=== PATIENT | female | born 1945 | race Two or more races ===

== ENCOUNTER 2017-12-19 16:26 | Inpatient (IN) | payer MEDICAID ==
[~2017-12-19] VITALS: Ht 157.5 cm; Wt 83.0 kg
[2017-12-19] VITALS (8 sets, daily range): BP systolic 86–118; BP diastolic 39–64
[2017-12-19] MEDS ORDERED: Vancomycin 1.5gm/D5W 250ml 250 ML IVPB ONE (16:45)
--- NOTE | 2017-12-19 16:51 | Emergency Room Report ---
History of Present Illness General Chief Complaint: Wound bleeding Source: Patient, Medical Record Present Illness HPI Patient is a 72-year-old female presented after increased bilateral lower extremity drainage. The patient prior history of chronic nonhealing wounds. Patient had been sent in for further evaluation. Patient had the been noted to be ventilator dependent and have baseline abnormal mental status. Patient was noted to be ventilator dependent.History is limited by patient's mental status. Allergies: Coded Allergies: PENICILLINS (Verified Allergy, Unknown, 12/19/17) Patient History Past Medical History: see triage record Past Surgical History: other - gtube, tracheostomy Last Menstrual Period: NA Reviewed Nursing Documentation: PMH: Agreed; PSxH: Agreed Nursing Documentation-PMH Past Medical History: No History, Except For Hx Hypertension: Yes - Cellulitis on LE. Osteomyelitis. Hx COPD: Yes - Tracheostomy Hx Gastrointestinal Problems: Yes - dysphagia. GERD. Peptic ulcer. History Of Psychiatric Problem: Yes - Dementia Hx Cerebrovascular Accident: Yes - Peripheral vascular disease Hx Seizures: Yes Review of Systems All Other Systems: limited - by mental status Physical Exam Vital Signs Date Time Temp Pulse Resp B/P (MAP) Pulse Ox O2 Delivery O2 Flow Rate FiO2 12/19/17 16:27 101.6 73 29 103/50 100 Mechanical Ventilator 45 101.7 Sp02 EP Interpretation: reviewed, normal General Appearance: obese, Chronically Ill, Stupor Head: atraumatic Eyes: bilateral eye PERRL ENT: uvula midline, moist mucus membranes Neck: supple, no bony tend, tracheotomy Respiratory: normal inspection, no respiratory distress, no retraction, crackles Cardiovascular #1: tachycardia, other, edema Gastrointestinal: non tender Genitourinary: normal inspection Musculoskeletal: back normal, decreased range of motion - contractures Neurologic: aphasia, motor weakness Psychiatric: depressed affect Skin: other - deep ulcer with surrounding erythema to right heel, left lateral malleolus large ulcer without eryythema Procedures Critical Care Time Critical Care Time Patient had a critical medical condition which untreated could potentially result in life or limb threatening injury. Total critical care time excluding procedures approximately 45 minutes. Central Line Central Line : Consent: Emergent Central Line Lumen: triple Maximal Sterile Barrier Tech: yes cap, yes mask, yes sterile gown, yes sterile gloves, yes large sterile sheet, yes hand hygiene, yes chlorhexidine prep Central Line Postion: subclavian (R) Anesthesia: local cc's of anesthesia: 6 Complications: none Central Line Post Position: sutured, good blood return, position confirmed w / CXR Attempts: Other - two Patient Tolerated: Well Complications: None Medical Decision Making Diagnostic Impression: Primary Impression: Decubitus ulcer Additional Impressions: Ventilator dependence Sepsis Quadriplegia Hyponatremia ER Course Patient presented for increased drainage from leg wounds. Differential diagnosis included was not limited to sepsis, cellulitis, osteomyelitis, peripheral vascular disease among others.Because of complexity of patient's case laboratory testing and imaging studies were ordered. The patient presented to have the area of infected wound to the right lower extremity decubitus ulcer to the heel which appears to be markedly edematous as well as somewhat infected. The left lateral malleolar wound appears to have recent debridement.The patient likely require admission for further surgical evaluation and treatment of nonhealing wounds.The patient started on IV fluids as well as IV antibiotics. Patient's daughter was contacted for consent for central line placement. The patient was noted to have the poor IV access and hypotension. The patient was started on IV antibiotics. Dr. Phoenix Mccoy was contacted for inpatient management due to covering physician for Dr. Andrews. Dr. Lujan was contacted for surgical consult. Labs Test 12/19/17 16:45 12/19/17 17:30 12/19/17 17:33 12/19/17 19:00 White Blood Count 18.8 K/UL (4.8-10.8) Red Blood Count 2.85 M/UL (4.20-5.40) Hemoglobin 8.5 G/DL (12.0-16.0) Hematocrit 24.2 % (37.0-47.0) Mean Corpuscular Volume 85 FL (80-99) Mean Corpuscular Hemoglobin 29.9 PG (27.0-31.0) Mean Corpuscular Hemoglobin Concent 35.3 G/DL (32.0-36.0) Red Cell Distribution Width 11.9 % (11.6-14.8) Platelet Count 263 K/UL (150-450) Mean Platelet Volume 6.4 FL (6.5-10.1) Neutrophils (%) (Auto) % (45.0-75.0) Lymphocytes (%) (Auto) % (20.0-45.0) Monocytes (%) (Auto) % (1.0-10.0) Eosinophils (%) (Auto) % (0.0-3.0) Basophils (%) (Auto) % (0.0-2.0) Differential Total Cells Counted 100 Neutrophils % (Manual) 83 % (45-75) Lymphocytes % (Manual) 13 % (20-45) Monocytes % (Manual) 2 % (1-10) Eosinophils % (Manual) 0 % (0-3) Basophils % (Manual) 0 % (0-2) Band Neutrophils 2 % (0-8) Platelet Estimate Adequate Platelet Morphology Normal Red Blood Cell Morphology Normal Hypochromasia 1+ Prothrombin Time 10.7 SEC (9.30-11.50) Prothromb Time International Ratio 1.0 (0.9-1.1) Activated Partial Thromboplast Time 29 SEC (23-33) Sodium Level 123 MMOL/L (136-145) Potassium Level 5.0 MMOL/L (3.5-5.1) Chloride Level 90 MMOL/L (98-107) Carbon Dioxide Level 28 MMOL/L (21-32) Anion Gap 5 mmol/L (5-15) Blood Urea Nitrogen 13 mg/dL (7-18) Creatinine 0.7 MG/DL (0.55-1.30) Estimat Glomerular Filtration Rate mL/min (>60) Glucose Level 291 MG/DL (74-106) Calcium Level 9.2 MG/DL (8.5-10.1) Total Bilirubin 0.6 MG/DL (0.2-1.0) Aspartate Amino Transf (AST/SGOT) 26 U/L (15-37) Alanine Aminotransferase (ALT/SGPT) 26 U/L (12-78) Alkaline Phosphatase 276 U/L (46-116) Total Creatine Kinase 58 U/L (26-308) Creatine Kinase MB 4.1 NG/ML (0.0-3.6) Creatine Kinase MB Relative Index 7.0 Troponin I 0.000 ng/mL (0.000-0.056) Pro-B-Type Natriuretic Peptide 2277 pg/mL (0-125) Total Protein 9.8 G/DL (6.4-8.2) Albumin 2.3 G/DL (3.4-5.0) Globulin 7.5 g/dL Albumin/Globulin Ratio 0.3 (1.0-2.7) Urine Color Melly Urine Appearance Cloudy Urine pH 8 (4.5-8.0) Urine Specific [place] 1.015 (1.005-1.035) Urine Protein 3+ (NEGATIVE) Urine Glucose (UA) Negative (NEGATIVE) Urine Ketones Negative (NEGATIVE) Urine Occult Blood 4+ (NEGATIVE) Urine Nitrite Negative (NEGATIVE) Urine Bilirubin Negative (NEGATIVE) Urine Ictotest Negative Urine Urobilinogen 1 MG/DL (0.0-1.0) Urine Leukocyte Esterase 3+ (NEGATIVE) Urine RBC 2-4 /HPF (0 - 2) Urine WBC 15-20 /HPF (0 - 2) Urine Squamous Epithelial Cells Moderate /LPF (NONE/OCC) Urine Amorphous Sediment Moderate /LPF (NONE) Urine Bacteria Many /HPF (NONE) Arterial Blood pH 7.429 (7.350-7.450) Arterial Blood Partial Pressure CO2 39.2 mmHg (35.0-45.0) Arterial Blood Partial Pressure O2 129.5 mmHg (75.0-100.0) Arterial Blood HCO3 25.4 mmol/L (22.0-26.0) Arterial Blood Oxygen Saturation 98.5 % (92.0-98.0) Arterial Blood Base Excess 1.0 Dean Test Positive Last Vital Signs Date Time Temp Pulse Resp B/P (MAP) Pulse Ox O2 Delivery O2 Flow Rate FiO2 12/19/17 16:27 101.6 73 29 103/50 100 Mechanical Ventilator 45 101.7 Status: unchanged Disposition: ADMITTED INPATIENT Condition: Critical Ramses Gallagher MD Dec 19, 2017 16:51
[2017-12-19] MEDS ORDERED: LISINOPRIL20 MG GT (16:54)
[2017-12-19] MEDS ORDERED: ASPIRIN325 MG GT (16:54)
[2017-12-19] MEDS ORDERED: HEPARIN SO5000 UNIT2 SUBQ ×2 (16:54→19:51)
[2017-12-19] MEDS ORDERED: KEPPRA500 MG GT (16:54)
[2017-12-19] MEDS ORDERED: ARTIFICIAL TEAR15 ML BOTH EYES ×2 (16:54→19:48)
[2017-12-19] MEDS ORDERED: MILK OF MA400 MG/51 ORAL (16:54)
[2017-12-19] MEDS ORDERED: VITAMIN D400 INTLU GT (16:54)
[2017-12-19] MEDS ORDERED: ATORVASTATIN CA20 MG GT (16:54)
[2017-12-19] MEDS ORDERED: JEVITY 1.2 CA1500 ML PO (16:54)
[2017-12-19] MEDS ORDERED: PROTONIX40 MG GT (16:54)
[2017-12-19] MEDS ORDERED: POTASSIUM40 MEQ/11 GT (16:54)
[2017-12-19] MEDS ORDERED: ACETAMINOPHEN325 M1 GT (16:57)
[2017-12-19] MEDS ORDERED: TRAMADOL HCL50 MG GT (16:57)
[2017-12-19 17:03] LABS: HEMATOCRIT 24.2 % (37.0-47.0); HEMOGLOBIN 8.5 G/DL (12.0-16.0); MEAN CORPUSCULAR VOLUME 85 FL (80-99); PLATELET COUNT 263 K/UL (150-450); RED BLOOD COUNT 2.85 M/UL (4.20-5.40); RED CELL DISTRIBUTION WIDTH 11.9 % (11.6-14.8); WHITE BLOOD COUNT 18.8 K/UL (4.8-10.8)
[2017-12-19 17:15] LABS: ANION GAP 5 mmol/L (5-15); BLOOD UREA NITROGEN 13 mg/dL (7-18); CALCIUM 9.2 MG/DL (8.5-10.1); CARBON DIOXIDE 28 MMOL/L (21-32); CHLORIDE 90 MMOL/L (98-107); CREATININE 0.7 MG/DL (0.55-1.30); SODIUM 123 MMOL/L (136-145)
[2017-12-19 17:28] LABS: ALANINE AMINOTRANSFERASE 26 U/L (12-78); ALBUMIN 2.3 G/DL (3.4-5.0); ALBUMIN/GLOBULIN RATIO 0.3 (1.0-2.7); ALKALINE PHOSPHATASE 276 U/L (46-116); ASPARTATE AMINO TRANSFERASE 26 U/L (15-37); BILIRUBIN,TOTAL 0.6 MG/DL (0.2-1.0); CKMB 4.1 NG/ML (0.0-3.6); CREATINE KINASE 58 U/L (26-308)
[2017-12-19] MEDS ORDERED: Acetaminophen 650mg/20.3ml GT ONE (17:45)
[2017-12-19 17:52] LABS: APPEARANCE,URINE CLOUDY; BILIRUBIN, URINE NEGATIVE (NEGATIVE); COLOR,URINE AMBER; GLUCOSE, URINE (UA) NEGATIVE (NEGATIVE); KETONES,URINE NEGATIVE (NEGATIVE); LEUKOCYTE ESTERASE ,URINE 3+ (NEGATIVE); NITRITE,URINE NEGATIVE (NEGATIVE); PH,URINE 8 (4.5-8.0); PROTEIN,URINE 3+ (NEGATIVE); UROBILINOGEN,URINE 1 MG/DL (0.0-1.0)
[2017-12-19] MEDS ORDERED: Lidocaine 1% Plain 30 ml INJ ONE (17:58)
[2017-12-19] MEDS ORDERED: Lidocaine 1% MPF 10mg/ml 5ml INJ ONE (18:00)
--- NOTE | 2017-12-19 19:23 | Consultation ---
History of Present Illness General Date patient seen: Dec 19, 2017 Chief Complaint: Wound Recheck/Suture Removal Present Illness HPI 72 y/o F with hx of LE cellulitis/OM, chronic resp failure s/p trach/vent dependent, Dementia, Dysphagia s/p GT, GERD, PUD, chronic non healing wounds, PVD, Dementia, seizure disorder, SNF resident presents to ED On 12/19 with increased b/l LE wound drainage. In ED it was noted patient to have foul smelling, yellow and sanguinous drainage. Also febrile up to 101.7, WBC 18.8. Of note, patient recently discharged from [facility] for debridemetns of wound. Allergies: Coded Allergies: PENICILLINS (Verified Allergy, Unknown, 12/19/17) Medication History Scheduled Aspirin* (Aspirin*), 325 MG GT DAILY, (Reported) Atorvastatin Calcium* (Atorvastatin Calcium*), 10 MG GT BEDTIME, (Reported) Cholecalciferol (Vitamin D3)* (Vitamin D*), 5,000 UNITS GT DAILY, (Reported) Dextran 70/Hypromellose (Artificial Tears Eye Drops*), 1 DROP BOTH EYES BID, ( Reported) Heparin Sod (Porcine) (Heparin Sodium*), 5,000 UNITS SUBQ DAILY, (Reported) Levetiracetam (Keppra), 5 ML GT TID, (Reported) Lisinopril (Lisinopril*), 20 MG GT DAILY, (Reported) Magnesium Hydroxide* (Milk Of Magnesia*), 30 ML ORAL DAILY, (Reported) Pantoprazole* (Protonix*), 40 MG GT DAILY, (Reported) Potassium Chloride (Potassium Chloride), 30 MEQ GT BID, (Reported) Scheduled PRN Acetaminophen* (Acetaminophen 325MG Tablet*), 650 MG GT Q4H PRN for For Pain, ( Reported) Tramadol Hcl* (Ultram*), 50 MG GT BIDAC PRN for For Pain, (Reported) Miscellaneous Medications Lactose-Reduced Food/Fiber (Jevity 1.2 Cuate Liquid), 1,500 ML PO, (Reported) Discontinued Medications Dextran 70/Hypromellose (Artificial Tears Eye Drops*), 1 DROP BOTH EYES, ( Reported) Discontinued Reason: Medication dose changed Heparin Sod (Porcine) (Heparin Sodium*), 5,000 UNITS SUBQ EVERY 12 HOURS, ( Reported) Discontinued Reason: Medication dose changed Levetiracetam (Keppra), 500 MG GT DAILY, (Reported) Discontinued Reason: Medication dose changed Potassium Chloride (Potassium Chloride), 40 MEQ GT, (Reported) Discontinued Reason: Medication dose changed Vitamin D (Vitamin D3), 5,000 UNITS GT DAILY, (Reported) Discontinued Reason: Medication dose changed Patient History Healthcare decision maker Resuscitation status Advanced Directive on File Patient History Narrative Pmhx: as above Shx: reviewed Fhx: non contributory Review of Systems All Other Systems: negative except mentioned in HPI Physical Exam Physical Exam Narrative General Appearance: normal inspection, obese, Chronically Ill, Stupor Head: atraumatic Eyes: bilateral eye PERRL ENT: uvula midline, moist mucus membranes Neck: supple, no bony tend, tracheotomy Respiratory: normal inspection, no respiratory distress, no retraction, no wheezing Cardiovascular tachycardia, other Gastrointestinal: non tender Genitourinary: normal inspection Musculoskeletal: back normal, decreased range of motion - contractures Neurologic: aphasia, motor weakness Psychiatric: depressed affect Skin: other - deep ulcer with surrounding erythema to right heel, left lateral malleolus large ulcer without eryythema Last 24 Hour Vital Signs Date Time Temp Pulse Resp B/P (MAP) Pulse Ox O2 Delivery O2 Flow Rate FiO2 12/19/17 18:24 101.6 12/19/17 17:30 101.6 87 17 86/40 100 Mechanical Ventilator 15.0 40 101.6 12/19/17 16:59 40 12/19/17 16:48 90 18 45 12/19/17 16:48 90 18 Mechanical Ventilator 15.0 45 12/19/17 16:30 101.7 90 16 117/64 100 Mechanical Ventilator 45 101.7 12/19/17 16:27 101.6 73 29 103/50 100 Mechanical Ventilator 45 101.7 Laboratory Tests Test 12/19/17 16:45 12/19/17 17:30 12/19/17 17:33 White Blood Count 18.8 K/UL (4.8-10.8) H Red Blood Count 2.85 M/UL (4.20-5.40) L Hemoglobin 8.5 G/DL (12.0-16.0) L Hematocrit 24.2 % (37.0-47.0) L Mean Corpuscular Volume 85 FL (80-99) Mean Corpuscular Hemoglobin 29.9 PG (27.0-31.0) Mean Corpuscular Hemoglobin Concent 35.3 G/DL (32.0-36.0) Red Cell Distribution Width 11.9 % (11.6-14.8) Platelet Count 263 K/UL (150-450) Mean Platelet Volume 6.4 FL (6.5-10.1) L Neutrophils (%) (Auto) % (45.0-75.0) Lymphocytes (%) (Auto) % (20.0-45.0) Monocytes (%) (Auto) % (1.0-10.0) Eosinophils (%) (Auto) % (0.0-3.0) Basophils (%) (Auto) % (0.0-2.0) Differential Total Cells Counted 100 Neutrophils % (Manual) 83 % (45-75) H Lymphocytes % (Manual) 13 % (20-45) L Monocytes % (Manual) 2 % (1-10) Eosinophils % (Manual) 0 % (0-3) Basophils % (Manual) 0 % (0-2) Band Neutrophils 2 % (0-8) Platelet Estimate Adequate Platelet Morphology Normal Red Blood Cell Morphology Normal Hypochromasia 1+ Prothrombin Time 10.7 SEC (9.30-11.50) Prothromb Time International Ratio 1.0 (0.9-1.1) Activated Partial Thromboplast Time 29 SEC (23-33) Sodium Level 123 MMOL/L (136-145) L Potassium Level 5.0 MMOL/L (3.5-5.1) Chloride Level 90 MMOL/L (98-107) L Carbon Dioxide Level 28 MMOL/L (21-32) Anion Gap 5 mmol/L (5-15) Blood Urea Nitrogen 13 mg/dL (7-18) Creatinine 0.7 MG/DL (0.55-1.30) Estimat Glomerular Filtration Rate mL/min (>60) Glucose Level 291 MG/DL (74-106) H Lactic Acid Level 2.00 mmol/L (0.4-2.0) Calcium Level 9.2 MG/DL (8.5-10.1) Total Bilirubin 0.6 MG/DL (0.2-1.0) Aspartate Amino Transf (AST/SGOT) 26 U/L (15-37) Alanine Aminotransferase (ALT/SGPT) 26 U/L (12-78) Alkaline Phosphatase 276 U/L (46-116) H Total Creatine Kinase 58 U/L (26-308) Creatine Kinase MB 4.1 NG/ML (0.0-3.6) H Creatine Kinase MB Relative Index 7.0 Troponin I 0.000 ng/mL (0.000-0.056) Pro-B-Type Natriuretic Peptide 2277 pg/mL (0-125) H Total Protein 9.8 G/DL (6.4-8.2) H Albumin 2.3 G/DL (3.4-5.0) L Globulin 7.5 g/dL Albumin/Globulin Ratio 0.3 (1.0-2.7) L Urine Color Melly Urine Appearance Cloudy Urine pH 8 (4.5-8.0) Urine Specific [place] 1.015 (1.005-1.035) Urine Protein 3+ (NEGATIVE) H Urine Glucose (UA) Negative (NEGATIVE) Urine Ketones Negative (NEGATIVE) Urine Occult Blood 4+ (NEGATIVE) H Urine Nitrite Negative (NEGATIVE) Urine Bilirubin Negative (NEGATIVE) Urine Ictotest Negative Urine Urobilinogen 1 MG/DL (0.0-1.0) H Urine Leukocyte Esterase 3+ (NEGATIVE) H Urine RBC 2-4 /HPF (0 - 2) H Urine WBC 15-20 /HPF (0 - 2) H Urine Squamous Epithelial Cells Moderate /LPF (NONE/OCC) H Urine Amorphous Sediment Moderate /LPF (NONE) H Urine Bacteria Many /HPF (NONE) H Arterial Blood pH 7.429 (7.350-7.450) Arterial Blood Partial Pressure CO2 39.2 mmHg (35.0-45.0) Arterial Blood Partial Pressure O2 129.5 mmHg (75.0-100.0) H Arterial Blood HCO3 25.4 mmol/L (22.0-26.0) Arterial Blood Oxygen Saturation 98.5 % (92.0-98.0) H Arterial Blood Base Excess 1.0 Dean Test Positive Height (Feet): 5 Height (Inches): 2.00 Weight (Pounds): 170 Assessment/Plan Assessment/Plan Abx: IV Vanco x1 12/19 LEvaquin x1 12/19 Assessment: Sepsis 2ry to R soft tissue infection- r/o bacteremia, r/o PNA, r/o UTI -CXR p -u/a wbc 15-20, nit neg, leuk +3, sq cell mod Fever/ leukocytosis B/l leg wounds; R foot infected, L musa non infected Abd distention hx of LE cellulitis/OM chronic resp failure s/p trach/vent dependent Dementia Dysphagia s/p GT GERD PUD chronic non healing wounds PVD Dementia seizure disorder SNF resident Plan: -Continue IV Vancomycn #1 and add IV MEropenem pending cultures -Bcx, sp cx -repeat u/a -KUB -f/u cx -Monitor CBC/CMP, temperatures -trach/peg care -ICU care -aspiration precautions -wound care per hosp protocol -Sx eval Thank you for this consultation. Will continue to follow along with you. Discussed with NELL. Ximena Grande M.D. Dec 19, 2017 19:23
[2017-12-19] MEDS ORDERED: KEPPRA LIQ100 MG/1 M GT (19:47)
[2017-12-19] MEDS ORDERED: POTASSIUM30 MEQ/22. GT (20:00)
[2017-12-19] MEDS ORDERED: VITAMIN D1000 UNI1 GT (20:03)
[2017-12-19] MEDS ORDERED: Vancomycin 1250mg/D5W 250ml IVPB SCH (22:00)
[2017-12-19] MEDS: Meropenem 1 GM in NS 55 ML IVPB SCH (23:45)
[2017-12-20] VITALS (19 sets, daily range): BP systolic 90–145; BP diastolic 39–78
[2017-12-20 05:16] LABS: HEMOGLOBIN 8.3 G/DL (12.0-16.0); MEAN CORPUSCULAR VOLUME 87 FL (80-99); PLATELET COUNT 245 K/UL (150-450); RED BLOOD COUNT 2.88 M/UL (4.20-5.40); RED CELL DISTRIBUTION WIDTH 12.2 % (11.6-14.8); WHITE BLOOD COUNT 14.5 K/UL (4.8-10.8)
[2017-12-20] MEDS: Meropenem 1 GM in NS 55 ML IVPB SCH ×2 (05:37→21:40)
[2017-12-20 05:41] LABS: ALANINE AMINOTRANSFERASE 20 U/L (12-78); ALBUMIN 1.7 G/DL (3.4-5.0); ALBUMIN/GLOBULIN RATIO 0.3 (1.0-2.7); ALKALINE PHOSPHATASE 190 U/L (46-116); ANION GAP 3 mmol/L (5-15); ASPARTATE AMINO TRANSFERASE 16 U/L (15-37); BILIRUBIN,TOTAL 0.7 MG/DL (0.2-1.0); BLOOD UREA NITROGEN 11 mg/dL (7-18); CALCIUM 8.1 MG/DL (8.5-10.1); CARBON DIOXIDE 28 MMOL/L (21-32); CHLORIDE 93 MMOL/L (98-107); CREATININE 0.5 MG/DL (0.55-1.30); POTASSIUM 4.1 MMOL/L (3.5-5.1); SODIUM 124 MMOL/L (136-145)
[2017-12-20] MEDS ORDERED: Piperacillin/Tazobactam 3.375 GM in D5W 110 ML IVPB SCH (06:00)
[2017-12-20] MEDS ORDERED: Pantoprazole Inj IVP SCH (09:00)
[2017-12-20] MEDS ORDERED: Heparin 5000 units/ml inj SUBQ SCH (09:00)
[2017-12-20] MEDS ORDERED: Gadavist 7.5mMol/7.5ml vial IV PRN ×3 (09:47→17:30)
[2017-12-20] MEDS ORDERED: Vancomycin 750mg/NS 250ml IVPB SCH (10:00)
--- NOTE | 2017-12-20 10:42 | Pulmonolgy Critical Care Note ---
Critical Care - Asmt/Plan Problems: (1) Acute on chronic respiratory failure (2) Sepsis (3) Ventilator dependence (4) Quadriplegia (5) Decubitus ulcer Respiratory: monitor respiratory rate, adjust FIO2, CXR Cardiac: continue to monitor HR/BP Infectious Disease: check cultures Gastrointestinal: continue feedings/current rate Endocrine: monitor blood sugar, check TSH Hematologic: transfuse if hgb<8.5 Neurologic: PRN Ativan, keep patient comfortable Affect: PRN ativan Prophylaxis: Heparin Disposition: keep in ICU Time Spent (Minutes): 40 Notes Reviewed: television presenter, cardio Discussed with: nurses, consultants, disease case manager rnmanager learning - Objective Last 24 Hour Vital Signs Date Time Temp Pulse Resp B/P (MAP) Pulse Ox O2 Delivery O2 Flow Rate FiO2 12/20/17 10:31 100 14 45 12/20/17 10:00 99.9 85 27 90/39 (56) 100 99.9 12/20/17 09:13 100.7 12/20/17 09:00 100.7 91 24 95/78 (84) 100 100.7 12/20/17 08:44 100 18 45 12/20/17 08:14 101.7 12/20/17 08:00 Mechanical Ventilator Mechanical Ventilator Mechanical Ventilator 12/20/17 08:00 101.7 92 28 104/43 (63) 100 101.7 12/20/17 07:01 100 15 45 12/20/17 07:00 45 12/20/17 07:00 91 23 109/45 (66) 100 12/20/17 06:00 91 19 112/49 (70) 100 12/20/17 05:12 100 15 45 12/20/17 05:00 45 12/20/17 05:00 92 19 113/47 (69) 100 12/20/17 04:00 93 12/20/17 04:00 40 12/20/17 04:00 99.8 93 16 113/48 (69) 100 99.8 12/20/17 04:00 Mechanical Ventilator 12/20/17 03:12 90 16 45 12/20/17 03:00 89 21 110/46 (67) 100 12/20/17 02:00 95 21 97/56 (70) 100 12/20/17 01:30 89 17 45 12/20/17 01:00 89 21 101/46 (64) 100 12/20/17 00:00 86 12/20/17 00:00 40 12/20/17 00:00 98.9 86 21 96/49 (65) 100 98.9 12/19/17 23:50 87 25 45 12/19/17 23:30 Mechanical Ventilator 12/19/17 23:00 75 16 96/39 (58) 100 12/19/17 22:53 Mechanical Ventilator 12/19/17 22:00 81 16 98/40 (59) 100 12/19/17 21:11 91 24 45 12/19/17 21:03 99.9 87 18 118/57 100 Mechanical Ventilator 15.0 45 99.9 12/19/17 21:00 40 12/19/17 21:00 81 12/19/17 21:00 99.2 81 21 97/45 (62) 100 99.2 12/19/17 20:30 99.9 87 18 118/57 100 Mechanical Ventilator 15.0 45 99.9 12/19/17 20:00 40 12/19/17 19:30 87 18 45 12/19/17 19:30 99.9 82 16 103/57 100 Mechanical Ventilator 15.0 45 99.9 12/19/17 18:54 99.9 12/19/17 18:30 100.0 81 16 97/54 100 Mechanical Ventilator 15.0 40 100.0 12/19/17 18:24 101.6 12/19/17 17:30 101.6 87 17 86/40 100 Mechanical Ventilator 15.0 40 101.6 12/19/17 16:59 40 12/19/17 16:48 90 18 45 12/19/17 16:48 90 18 Mechanical Ventilator 15.0 45 12/19/17 16:30 101.7 90 16 117/64 100 Mechanical Ventilator 45 101.7 12/19/17 16:27 101.6 73 29 103/50 100 Mechanical Ventilator 45 101.7 Condition: critical HEENT: atraumatic Lungs: clear Heart: HR/BP stable, regular Abdomen: active bowel sounds Extremities: edema Decubiti: location Micro: Microbiology Date/Time Source Procedure Growth Status 12/19/17 17:30 Urine,Clean Catch Urine Culture - Preliminary Resulted 12/19/17 17:40 Rectum Received Critical Care - Subjective ROS Limited/Unobtainable: Yes Condition: critical EKG Rhythm: Sinus Rhythm FI02: 45 Vent Support Breath Rate: 10 Vent Support Mode: AC Vent Tidal Volume: 450 Sputum Amount: Small PEEP: 5.0 PIP: 29 I&O: Intake and Output 12/19/17 12/20/17 19:00 07:00 Intake Total 1100 ml 960 ml Output Total 680 ml Balance 1100 ml 280 ml Intake Oral 0 ml IV Total 1100 ml 960 ml Output Urine Total 680 ml Labs: Laboratory Tests Test 12/19/17 16:45 12/19/17 17:30 12/19/17 17:33 12/19/17 19:00 White Blood Count 18.8 K/UL (4.8-10.8) H Red Blood Count 2.85 M/UL (4.20-5.40) L Hemoglobin 8.5 G/DL (12.0-16.0) L Hematocrit 24.2 % (37.0-47.0) L Mean Corpuscular Volume 85 FL (80-99) Mean Corpuscular Hemoglobin 29.9 PG (27.0-31.0) Mean Corpuscular Hemoglobin Concent 35.3 G/DL (32.0-36.0) Red Cell Distribution Width 11.9 % (11.6-14.8) Platelet Count 263 K/UL (150-450) Mean Platelet Volume 6.4 FL (6.5-10.1) L Neutrophils (%) (Auto) % (45.0-75.0) Lymphocytes (%) (Auto) % (20.0-45.0) Monocytes (%) (Auto) % (1.0-10.0) Eosinophils (%) (Auto) % (0.0-3.0) Basophils (%) (Auto) % (0.0-2.0) Differential Total Cells Counted 100 Neutrophils % (Manual) 83 % (45-75) H Lymphocytes % (Manual) 13 % (20-45) L Monocytes % (Manual) 2 % (1-10) Eosinophils % (Manual) 0 % (0-3) Basophils % (Manual) 0 % (0-2) Band Neutrophils 2 % (0-8) Platelet Estimate Adequate Platelet Morphology Normal Red Blood Cell Morphology Normal Hypochromasia 1+ Prothrombin Time 10.7 SEC (9.30-11.50) Prothromb Time International Ratio 1.0 (0.9-1.1) Activated Partial Thromboplast Time 29 SEC (23-33) Sodium Level 123 MMOL/L (136-145) L Potassium Level 5.0 MMOL/L (3.5-5.1) Chloride Level 90 MMOL/L (98-107) L Carbon Dioxide Level 28 MMOL/L (21-32) Anion Gap 5 mmol/L (5-15) Blood Urea Nitrogen 13 mg/dL (7-18) Creatinine 0.7 MG/DL (0.55-1.30) Estimat Glomerular Filtration Rate mL/min (>60) Glucose Level 291 MG/DL (74-106) H Lactic Acid Level 2.00 mmol/L (0.4-2.0) 1.70 mmol/L (0.66-2.22) Calcium Level 9.2 MG/DL (8.5-10.1) Total Bilirubin 0.6 MG/DL (0.2-1.0) Aspartate Amino Transf (AST/SGOT) 26 U/L (15-37) Alanine Aminotransferase (ALT/SGPT) 26 U/L (12-78) Alkaline Phosphatase 276 U/L (46-116) H Total Creatine Kinase 58 U/L (26-308) Creatine Kinase MB 4.1 NG/ML (0.0-3.6) H Creatine Kinase MB Relative Index 7.0 Troponin I 0.000 ng/mL (0.000-0.056) Pro-B-Type Natriuretic Peptide 2277 pg/mL (0-125) H Total Protein 9.8 G/DL (6.4-8.2) H Albumin 2.3 G/DL (3.4-5.0) L Globulin 7.5 g/dL Albumin/Globulin Ratio 0.3 (1.0-2.7) L Urine Color Melly Urine Appearance Cloudy Urine pH 8 (4.5-8.0) Urine Specific [place] 1.015 (1.005-1.035) Urine Protein 3+ (NEGATIVE) H Urine Glucose (UA) Negative (NEGATIVE) Urine Ketones Negative (NEGATIVE) Urine Occult Blood 4+ (NEGATIVE) H Urine Nitrite Negative (NEGATIVE) Urine Bilirubin Negative (NEGATIVE) Urine Ictotest Negative Urine Urobilinogen 1 MG/DL (0.0-1.0) H Urine Leukocyte Esterase 3+ (NEGATIVE) H Urine RBC 2-4 /HPF (0 - 2) H Urine WBC 15-20 /HPF (0 - 2) H Urine Squamous Epithelial Cells Moderate /LPF (NONE/OCC) H Urine Amorphous Sediment Moderate /LPF (NONE) H Urine Bacteria Many /HPF (NONE) H Arterial Blood pH 7.429 (7.350-7.450) Arterial Blood Partial Pressure CO2 39.2 mmHg (35.0-45.0) Arterial Blood Partial Pressure O2 129.5 mmHg (75.0-100.0) H Arterial Blood HCO3 25.4 mmol/L (22.0-26.0) Arterial Blood Oxygen Saturation 98.5 % (92.0-98.0) H Arterial Blood Base Excess 1.0 Dean Test Positive Test 12/20/17 04:30 12/20/17 07:05 12/20/17 08:55 White Blood Count 14.5 K/UL (4.8-10.8) H Red Blood Count 2.88 M/UL (4.20-5.40) L Hemoglobin 8.3 G/DL (12.0-16.0) L Hematocrit 25.0 % (37.0-47.0) L Mean Corpuscular Volume 87 FL (80-99) Mean Corpuscular Hemoglobin 28.6 PG (27.0-31.0) Mean Corpuscular Hemoglobin Concent 33.1 G/DL (32.0-36.0) Red Cell Distribution Width 12.2 % (11.6-14.8) Platelet Count 245 K/UL (150-450) Mean Platelet Volume 4.2 FL (6.5-10.1) L Neutrophils (%) (Auto) % (45.0-75.0) Lymphocytes (%) (Auto) % (20.0-45.0) Monocytes (%) (Auto) % (1.0-10.0) Eosinophils (%) (Auto) % (0.0-3.0) Basophils (%) (Auto) % (0.0-2.0) Differential Total Cells Counted 100 Neutrophils % (Manual) 86 % (45-75) H Lymphocytes % (Manual) 6 % (20-45) L Monocytes % (Manual) 6 % (1-10) Eosinophils % (Manual) 0 % (0-3) Basophils % (Manual) 0 % (0-2) Band Neutrophils 2 % (0-8) Platelet Estimate Adequate Platelet Morphology Normal Red Blood Cell Morphology Normal Sodium Level 124 MMOL/L (136-145) L Potassium Level 4.1 MMOL/L (3.5-5.1) Chloride Level 93 MMOL/L (98-107) L Carbon Dioxide Level 28 MMOL/L (21-32) Anion Gap 3 mmol/L (5-15) L Blood Urea Nitrogen 11 mg/dL (7-18) Creatinine 0.5 MG/DL (0.55-1.30) L Estimat Glomerular Filtration Rate mL/min (>60) Glucose Level 150 MG/DL (74-106) #H Lactic Acid Level 1.10 mmol/L (0.4-2.0) Calcium Level 8.1 MG/DL (8.5-10.1) L Total Bilirubin 0.7 MG/DL (0.2-1.0) Aspartate Amino Transf (AST/SGOT) 16 U/L (15-37) Alanine Aminotransferase (ALT/SGPT) 20 U/L (12-78) Alkaline Phosphatase 190 U/L (46-116) H Total Protein 7.6 G/DL (6.4-8.2) Albumin 1.7 G/DL (3.4-5.0) L Globulin 5.9 g/dL Albumin/Globulin Ratio 0.3 (1.0-2.7) L Arterial Blood pH 7.447 (7.350-7.450) Arterial Blood Partial Pressure CO2 38.5 mmHg (35.0-45.0) Arterial Blood Partial Pressure O2 136.1 mmHg (75.0-100.0) H Arterial Blood HCO3 26.0 mmol/L (22.0-26.0) Arterial Blood Oxygen Saturation 98.2 % (92.0-98.0) H Arterial Blood Base Excess 1.9 Dean Test Positive Levetiracetam (Keppra) Level Pending Ang Masterson MD Dec 20, 2017 10:42
--- NOTE | 2017-12-20 11:47 | History & Physical ---
History and Physical History & Physicial Job ID: [id number] Phoenix Gonzalez MD Dec 20, 2017 11:47
--- NOTE | 2017-12-20 12:06 | Diagnostic Imaging Report ---
Indication: Shortness of breath, cough Technique: One view of the chest Comparison: 12/19/2017 Findings: There is persistent elevation of the right hemidiaphragm. There is persistent bilateral basilar atelectatic changes, appearing slightly increased on the right. There is suggestion of new or increased pleural effusion on the right. Tracheostomy, right subclavian central venous catheter are again demonstrated Impression: New or increased right pleural effusion Persistent unchanged bilateral basilar atelectatic changes Other stable findings as described
[2017-12-20 12:09] LABS: FERRITIN 221 NG/ML (8-388); LACTATE DEHYDROGENASE 193 U/L (81-234)
[2017-12-20 12:27] LABS: % IRON SATURATION 7 % (15-50); IRON 11 ug/dL (50-175); TOTAL IRON BINDING CAPACITY 161 ug/dL (250-450)
--- NOTE | 2017-12-20 12:38 | Diagnostic Imaging Report ---
Indication: Pain Technique: 3 views ] foot Comparison: none Findings: On the lateral view, there is suggestion of gas within the fat pad of the heel, although this is not corroborated on any orthogonal images. Indistinctness of the cortex may be due to obscuration by overlying bandages, but erosive changes are not excludable. The bones are profoundly osteoporotic. There is severe hammertoe deformity of the first through fifth digits. No definite acute fractures. No dislocations. Impression: Possible gas within the soft tissues of the heel pad, raises concern for infection with gas-forming organism Indistinctness of the cortical surfaces of the calcaneal tuberosity, could be artifactual due to overlying shadows but could indicate osteomyelitis. Consider MRI for better characterization if clinically indicated Osteoporosis Deformities, as described No acute bony trauma
--- NOTE | 2017-12-20 12:53 | Diagnostic Imaging Report ---
Indication: Pain Technique: 3 views of the left ankle Comparison: none Findings: Imaging is very limited, due to patient contractures limiting positioning. There is a superiorly angulated fracture deformity of the distal tibia and fibula. This is angulated by nearly 90 degrees posteriorly and medially. There is bone bridging the distal tibia and fibula, indicating that this fracture is chronic. It is uncertain whether or not there is a fracture line between the proximal and distal fragments. There is probably severe deformity of the talus. The bones are profoundly osteoporotic. There may be some deformity of the calcaneus as well. No definite acute fractures. Impression: Severely angulated fracture deformity of the distal tibia and fibula, as described. This is presumably chronic. Degree of bony union uncertain based on available images, however. Consider CT for further characterization if this is of clinical concern. Osteoporosis
--- NOTE | 2017-12-20 12:57 | Diagnostic Imaging Report ---
Indication: Shortness of breath Technique: One view of the chest Comparison: none Findings: There is mild elevation the right hemidiaphragm and some atelectasis at the right lung base. There might be a small right pleural effusion. There is a tracheostomy. The heart is enlarged. The upper lungs are clear. Impression: Elevated right hemidiaphragm and right basilar atelectasis Possible small right pleural effusion Borderline cardiomegaly
--- NOTE | 2017-12-20 13:04 | Consultation ---
History of Present Illness General Date patient seen: Dec 19, 2017 Chief Complaint: Wound Recheck/Suture Removal Reason for Consultation: bilateral lower extremity cellulitis / infected Present Illness HPI 72 year old female with hx of chronic bilateral lower extremity cellulitis and osteomyelitis, chronic resp failure s/p trach and is vent dependent, Dementia, Dysphagia s/p GT, GERD, PUD, chronic non healing wounds on lower extremities, PVD, Dementia, seizure disorder who has [facility] in [facility] time now presented to [facility] ED on 12/19 with increased bilateral lower extremity cellulitis and wound drainage. Septic upon arrival with foul smelling large wounds. Surgery called to evaluate. patient seen in ED, chart reviewed, patient examined. Allergies: Coded Allergies: PENICILLINS (Verified Allergy, Unknown, 12/19/17) Medication History Scheduled Aspirin* (Aspirin*), 325 MG GT DAILY, (Reported) Atorvastatin Calcium* (Atorvastatin Calcium*), 10 MG GT BEDTIME, (Reported) Cholecalciferol (Vitamin D3)* (Vitamin D*), 5,000 UNITS GT DAILY, (Reported) Dextran 70/Hypromellose (Artificial Tears Eye Drops*), 1 DROP BOTH EYES BID, ( Reported) Heparin Sod (Porcine) (Heparin Sodium*), 5,000 UNITS SUBQ DAILY, (Reported) Levetiracetam (Keppra), 5 ML GT TID, (Reported) Lisinopril (Lisinopril*), 20 MG GT DAILY, (Reported) Magnesium Hydroxide* (Milk Of Magnesia*), 30 ML ORAL DAILY, (Reported) Pantoprazole* (Protonix*), 40 MG GT DAILY, (Reported) Potassium Chloride (Potassium Chloride), 30 MEQ GT BID, (Reported) Scheduled PRN Acetaminophen* (Acetaminophen 325MG Tablet*), 650 MG GT Q4H PRN for For Pain, ( Reported) Tramadol Hcl* (Ultram*), 50 MG GT BIDAC PRN for For Pain, (Reported) Miscellaneous Medications Lactose-Reduced Food/Fiber (Jevity 1.2 Cuate Liquid), 1,500 ML PO, (Reported) Discontinued Medications Dextran 70/Hypromellose (Artificial Tears Eye Drops*), 1 DROP BOTH EYES, ( Reported) Discontinued Reason: Medication dose changed Heparin Sod (Porcine) (Heparin Sodium*), 5,000 UNITS SUBQ EVERY 12 HOURS, ( Reported) Discontinued Reason: Medication dose changed Levetiracetam (Keppra), 500 MG GT DAILY, (Reported) Discontinued Reason: Medication dose changed Potassium Chloride (Potassium Chloride), 40 MEQ GT, (Reported) Discontinued Reason: Medication dose changed Vitamin D (Vitamin D3), 5,000 UNITS GT DAILY, (Reported) Discontinued Reason: Medication dose changed Patient History Limited by: medical condition History Provided By: Medical Record, PMD Healthcare decision maker tyler moore Resuscitation status Full Code Advanced Directive on File No Past Medical/Surgical History Past Medical/Surgical History: (1) Ulcer of right heel and midfoot with necrosis of muscle (2) Decubitus ulcer, heel, right, unstageable (3) Ulcer of left ankle (4) Decubitus ulcer of left ankle, stage 4 (5) Bilateral lower leg cellulitis (6) Hyponatremia (7) Decubitus ulcer (8) Quadriplegia (9) Ventilator dependence (10) Sepsis (11) Acute on chronic respiratory failure Review of Systems ROS Narrative cannot obtain given medical condition Physical Exam General Appearance: mild distress Lines, tubes and drains: central line HEENT: mucous membranes moist Neck: trach Respiratory/Chest: on vent Cardiovascular/Chest: irregularly irregular Abdomen: soft, distended, feeding tube Extremities: other - see wound care photos Skin Exam: warm/dry Neurologic: unresponsiveness Last 24 Hour Vital Signs Date Time Temp Pulse Resp B/P (MAP) Pulse Ox O2 Delivery O2 Flow Rate FiO2 12/20/17 12:00 Mechanical Ventilator Mechanical Ventilator Mechanical Ventilator 12/20/17 12:00 45 12/20/17 12:00 76 18 103/42 (62) 100 12/20/17 11:00 93 25 127/54 (78) 100 12/20/17 10:31 100 14 45 12/20/17 10:00 99.9 85 27 90/39 (56) 100 99.9 12/20/17 09:13 100.7 12/20/17 09:00 100.7 91 24 95/78 (84) 100 100.7 12/20/17 08:44 100 18 45 12/20/17 08:14 101.7 12/20/17 08:00 90 12/20/17 08:00 Mechanical Ventilator Mechanical Ventilator Mechanical Ventilator 12/20/17 08:00 101.7 92 28 104/43 (63) 100 101.7 12/20/17 07:01 100 15 45 12/20/17 07:00 45 12/20/17 07:00 91 23 109/45 (66) 100 12/20/17 06:00 91 19 112/49 (70) 100 12/20/17 05:12 100 15 45 12/20/17 05:00 45 12/20/17 05:00 92 19 113/47 (69) 100 12/20/17 04:00 93 12/20/17 04:00 40 12/20/17 04:00 99.8 93 16 113/48 (69) 100 99.8 12/20/17 04:00 Mechanical Ventilator 12/20/17 03:12 90 16 45 12/20/17 03:00 89 21 110/46 (67) 100 12/20/17 02:00 95 21 97/56 (70) 100 12/20/17 01:30 89 17 45 12/20/17 01:00 89 21 101/46 (64) 100 12/20/17 00:00 86 12/20/17 00:00 40 12/20/17 00:00 98.9 86 21 96/49 (65) 100 98.9 12/19/17 23:50 87 25 45 12/19/17 23:30 Mechanical Ventilator 12/19/17 23:00 75 16 96/39 (58) 100 12/19/17 22:53 Mechanical Ventilator 12/19/17 22:00 81 16 98/40 (59) 100 12/19/17 21:11 91 24 45 12/19/17 21:03 99.9 87 18 118/57 100 Mechanical Ventilator 15.0 45 99.9 18 21:00 40 18 21:00 81 12/19/17 21:00 99.2 81 21 97/45 (62) 100 99.2 12/19/17 20:30 99.9 87 18 118/57 100 Mechanical Ventilator 15.0 45 99.9 18 20:00 40 18 19:30 87 18 45 12/19/17 19:30 99.9 82 16 103/57 100 Mechanical Ventilator 15.0 45 99.9 18 18:54 99.9 18 18:30 100.0 81 16 97/54 100 Mechanical Ventilator 15.0 40 100.0 12/19/17 18:24 101.6 12/19/17 17:30 101.6 87 17 86/40 100 Mechanical Ventilator 15.0 40 101.6 12/19/17 16:59 40 12/19/17 16:48 90 18 45 12/19/17 16:48 90 18 Mechanical Ventilator 15.0 45 12/19/17 16:30 101.7 90 16 117/64 100 Mechanical Ventilator 45 101.7 12/19/17 16:27 101.6 73 29 103/50 100 Mechanical Ventilator 45 101.7 Intake and Output 12/19/17 12/20/17 19:00 07:00 Intake Total 1100 ml 960 ml Output Total 680 ml Balance 1100 ml 280 ml Intake Oral 0 ml IV Total 1100 ml 960 ml Output Urine Total 680 ml Laboratory Tests Test 12/19/17 16:45 12/19/17 17:30 12/19/17 17:33 12/19/17 19:00 White Blood Count 18.8 K/UL (4.8-10.8) H Red Blood Count 2.85 M/UL (4.20-5.40) L Hemoglobin 8.5 G/DL (12.0-16.0) L Hematocrit 24.2 % (37.0-47.0) L Mean Corpuscular Volume 85 FL (80-99) Mean Corpuscular Hemoglobin 29.9 PG (27.0-31.0) Mean Corpuscular Hemoglobin Concent 35.3 G/DL (32.0-36.0) Red Cell Distribution Width 11.9 % (11.6-14.8) Platelet Count 263 K/UL (150-450) Mean Platelet Volume 6.4 FL (6.5-10.1) L Neutrophils (%) (Auto) % (45.0-75.0) Lymphocytes (%) (Auto) % (20.0-45.0) Monocytes (%) (Auto) % (1.0-10.0) Eosinophils (%) (Auto) % (0.0-3.0) Basophils (%) (Auto) % (0.0-2.0) Differential Total Cells Counted 100 Neutrophils % (Manual) 83 % (45-75) H Lymphocytes % (Manual) 13 % (20-45) L Monocytes % (Manual) 2 % (1-10) Eosinophils % (Manual) 0 % (0-3) Basophils % (Manual) 0 % (0-2) Band Neutrophils 2 % (0-8) Platelet Estimate Adequate Platelet Morphology Normal Red Blood Cell Morphology Normal Hypochromasia 1+ Prothrombin Time 10.7 SEC (9.30-11.50) Prothromb Time International Ratio 1.0 (0.9-1.1) Activated Partial Thromboplast Time 29 SEC (23-33) Sodium Level 123 MMOL/L (136-145) L Potassium Level 5.0 MMOL/L (3.5-5.1) Chloride Level 90 MMOL/L (98-107) L Carbon Dioxide Level 28 MMOL/L (21-32) Anion Gap 5 mmol/L (5-15) Blood Urea Nitrogen 13 mg/dL (7-18) Creatinine 0.7 MG/DL (0.55-1.30) Estimat Glomerular Filtration Rate mL/min (>60) Glucose Level 291 MG/DL (74-106) H Lactic Acid Level 2.00 mmol/L (0.4-2.0) 1.70 mmol/L (0.66-2.22) Calcium Level 9.2 MG/DL (8.5-10.1) Total Bilirubin 0.6 MG/DL (0.2-1.0) Aspartate Amino Transf (AST/SGOT) 26 U/L (15-37) Alanine Aminotransferase (ALT/SGPT) 26 U/L (12-78) Alkaline Phosphatase 276 U/L (46-116) H Total Creatine Kinase 58 U/L (26-308) Creatine Kinase MB 4.1 NG/ML (0.0-3.6) H Creatine Kinase MB Relative Index 7.0 Troponin I 0.000 ng/mL (0.000-0.056) Pro-B-Type Natriuretic Peptide 2277 pg/mL (0-125) H Total Protein 9.8 G/DL (6.4-8.2) H Albumin 2.3 G/DL (3.4-5.0) L Globulin 7.5 g/dL Albumin/Globulin Ratio 0.3 (1.0-2.7) L Urine Color Melly Urine Appearance Cloudy Urine pH 8 (4.5-8.0) Urine Specific Sunset 1.015 (1.005-1.035) Urine Protein 3+ (NEGATIVE) H Urine Glucose (UA) Negative (NEGATIVE) Urine Ketones Negative (NEGATIVE) Urine Occult Blood 4+ (NEGATIVE) H Urine Nitrite Negative (NEGATIVE) Urine Bilirubin Negative (NEGATIVE) Urine Ictotest Negative Urine Urobilinogen 1 MG/DL (0.0-1.0) H Urine Leukocyte Esterase 3+ (NEGATIVE) H Urine RBC 2-4 /HPF (0 - 2) H Urine WBC 15-20 /HPF (0 - 2) H Urine Squamous Epithelial Cells Moderate /LPF (NONE/OCC) H Urine Amorphous Sediment Moderate /LPF (NONE) H Urine Bacteria Many /HPF (NONE) H Arterial Blood pH 7.429 (7.350-7.450) Arterial Blood Partial Pressure CO2 39.2 mmHg (35.0-45.0) Arterial Blood Partial Pressure O2 129.5 mmHg (75.0-100.0) H Arterial Blood HCO3 25.4 mmol/L (22.0-26.0) Arterial Blood Oxygen Saturation 98.5 % (92.0-98.0) H Arterial Blood Base Excess 1.0 Dean Test Positive Test 12/20/17 04:30 12/20/17 07:05 12/20/17 08:55 12/20/17 11:40 White Blood Count 14.5 K/UL (4.8-10.8) H Red Blood Count 2.88 M/UL (4.20-5.40) L Hemoglobin 8.3 G/DL (12.0-16.0) L Hematocrit 25.0 % (37.0-47.0) L Mean Corpuscular Volume 87 FL (80-99) Mean Corpuscular Hemoglobin 28.6 PG (27.0-31.0) Mean Corpuscular Hemoglobin Concent 33.1 G/DL (32.0-36.0) Red Cell Distribution Width 12.2 % (11.6-14.8) Platelet Count 245 K/UL (150-450) Mean Platelet Volume 4.2 FL (6.5-10.1) L Neutrophils (%) (Auto) % (45.0-75.0) Lymphocytes (%) (Auto) % (20.0-45.0) Monocytes (%) (Auto) % (1.0-10.0) Eosinophils (%) (Auto) % (0.0-3.0) Basophils (%) (Auto) % (0.0-2.0) Differential Total Cells Counted 100 Neutrophils % (Manual) 86 % (45-75) H Lymphocytes % (Manual) 6 % (20-45) L Monocytes % (Manual) 6 % (1-10) Eosinophils % (Manual) 0 % (0-3) Basophils % (Manual) 0 % (0-2) Band Neutrophils 2 % (0-8) Platelet Estimate Adequate Platelet Morphology Normal Red Blood Cell Morphology Normal Sodium Level 124 MMOL/L (136-145) L Potassium Level 4.1 MMOL/L (3.5-5.1) Chloride Level 93 MMOL/L (98-107) L Carbon Dioxide Level 28 MMOL/L (21-32) Anion Gap 3 mmol/L (5-15) L Blood Urea Nitrogen 11 mg/dL (7-18) Creatinine 0.5 MG/DL (0.55-1.30) L Estimat Glomerular Filtration Rate mL/min (>60) Glucose Level 150 MG/DL (74-106) #H Lactic Acid Level 1.10 mmol/L (0.4-2.0) Calcium Level 8.1 MG/DL (8.5-10.1) L Total Bilirubin 0.7 MG/DL (0.2-1.0) Aspartate Amino Transf (AST/SGOT) 16 U/L (15-37) Alanine Aminotransferase (ALT/SGPT) 20 U/L (12-78) Alkaline Phosphatase 190 U/L (46-116) H Total Protein 7.6 G/DL (6.4-8.2) Albumin 1.7 G/DL (3.4-5.0) L Globulin 5.9 g/dL Albumin/Globulin Ratio 0.3 (1.0-2.7) L Arterial Blood pH 7.447 (7.350-7.450) Arterial Blood Partial Pressure CO2 38.5 mmHg (35.0-45.0) Arterial Blood Partial Pressure O2 136.1 mmHg (75.0-100.0) H Arterial Blood HCO3 26.0 mmol/L (22.0-26.0) Arterial Blood Oxygen Saturation 98.2 % (92.0-98.0) H Arterial Blood Base Excess 1.9 Dean Test Positive Iron Level 11 ug/dL (50-175) L Total Iron Binding Capacity 161 ug/dL (250-450) L Percent Iron Saturation 7 % (15-50) L Unsaturated Iron Binding 150 ug/dL (112-346) Ferritin 221 NG/ML (8-388) Lactate Dehydrogenase 193 U/L (81-234) Vitamin B12 Level 1171 PG/ML (193-986) H Folate 34.1 NG/ML (8.6-58.9) Thyroid Stimulating Hormone (TSH) 0.824 uiU/mL (0.358-3.740) Levetiracetam (Keppra) Level Pending Fibrinogen Pending Microbiology Date/Time Source Procedure Growth Status 12/19/17 17:30 Urine,Clean Catch Urine Culture - Preliminary Resulted 12/19/17 17:40 Rectum Received Height (Feet): 5 Height (Inches): 2.00 Weight (Pounds): 178 Medications Current Medications Medications (Trade) Dose Ordered Sig/Chester Route PRN Reason Start Time Stop Time Status Last Admin Dose Admin Acetaminophen (Tylenol) 650 mg Q6H PRN ORAL Mild Pain/Temp > 100.5 12/20/17 08:15 01/19/18 08:14 12/20/17 08:14 Gadobutrol (Gadavist) 7.5 mmol NOW PRN IV Radiology Procedure 12/20/17 09:47 12/20/17 23:59 Gadobutrol (Gadavist) 7.5 mmol NOW PRN IV Radiology Procedure 12/20/17 09:47 12/20/17 23:59 Heparin Sodium (Porcine) (Heparin 5000 units/ml) 5,000 units EVERY 12 HOURS SUBQ 12/20/17 09:00 01/19/18 08:59 12/20/17 08:16 Meropenem 1 gm/ Sodium Chloride 55 ml @ 110 mls/hr Q12HR IVPB 12/20/17 21:00 12/25/17 20:59 Pantoprazole (Protonix) 40 mg DAILY IVP 12/20/17 09:00 01/19/18 08:59 12/20/17 08:13 Sodium Chloride 1,000 ml @ 100 mls/hr Q10H IV 12/20/17 04:00 01/19/18 03:59 12/20/17 11:41 Vancomycin HCl (Vanco rx to dose) 1 ea DAILY PRN MISC Per rx protocol 12/19/17 19:30 01/18/18 19:29 Vancomycin HCl/ Dextrose 250 ml @ 166.667 mls/hr Q24H IVPB 12/20/17 18:00 12/25/17 17:59 Assessment/Plan Problem List: (1) Decubitus ulcer ICD Codes: L89.90 - Pressure ulcer of unspecified site, unspecified stage SNOMED: 857852942 (2) Bilateral lower leg cellulitis ICD Codes: L03.116 - Cellulitis of left lower limb; L03.115 - Cellulitis of right lower limb SNOMED: 815925361 (3) Sepsis ICD Codes: A41.9 - Sepsis, unspecified organism SNOMED: 56005402 (4) Ulcer of left ankle ICD Codes: L97.329 - Non-pressure chronic ulcer of left ankle with unspecified severity SNOMED: 63953007, 817287898 (5) Ulcer of right heel and midfoot with necrosis of muscle ICD Codes: L97.413 - Non-pressure chronic ulcer of right heel and midfoot with necrosis of muscle SNOMED: 39487349, 215147993 (6) Decubitus ulcer, heel, right, unstageable ICD Codes: L89.610 - Pressure ulcer of right heel, unstageable SNOMED: 482336063 (7) Decubitus ulcer of left ankle, stage 4 ICD Codes: L89.524 - Pressure ulcer of left ankle, stage 4 SNOMED: 262141485 Status: unchanged Assessment/Plan Wound care orders placed Plain films ordered MRI ordered to ICU for care Central line placed in ED by ED physician prognosis guarded. Donovan Lujan Dec 20, 2017 13:04
--- NOTE | 2017-12-20 13:10 | General Surgery Progress Note ---
General Surgery-Progress Note Subjective Additional Comments responded to fluid bolus. in ICU. wounds stable. vent stable. labs improved Objective Last 24 Hour Vital Signs Date Time Temp Pulse Resp B/P (MAP) Pulse Ox O2 Delivery O2 Flow Rate FiO2 12/20/17 12:00 Mechanical Ventilator Mechanical Ventilator Mechanical Ventilator 12/20/17 12:00 45 12/20/17 12:00 76 18 103/42 (62) 100 12/20/17 11:00 93 25 127/54 (78) 100 12/20/17 10:31 100 14 45 12/20/17 10:00 99.9 85 27 90/39 (56) 100 99.9 12/20/17 09:13 100.7 12/20/17 09:00 100.7 91 24 95/78 (84) 100 100.7 12/20/17 08:44 100 18 45 12/20/17 08:14 101.7 12/20/17 08:00 90 12/20/17 08:00 Mechanical Ventilator Mechanical Ventilator Mechanical Ventilator 12/20/17 08:00 101.7 92 28 104/43 (63) 100 101.7 12/20/17 07:01 100 15 45 12/20/17 07:00 45 12/20/17 07:00 91 23 109/45 (66) 100 12/20/17 06:00 91 19 112/49 (70) 100 12/20/17 05:12 100 15 45 12/20/17 05:00 45 12/20/17 05:00 92 19 113/47 (69) 100 12/20/17 04:00 93 12/20/17 04:00 40 12/20/17 04:00 99.8 93 16 113/48 (69) 100 99.8 12/20/17 04:00 Mechanical Ventilator 12/20/17 03:12 90 16 45 12/20/17 03:00 89 21 110/46 (67) 100 12/20/17 02:00 95 21 97/56 (70) 100 12/20/17 01:30 89 17 45 12/20/17 01:00 89 21 101/46 (64) 100 12/20/17 00:00 86 12/20/17 00:00 40 12/20/17 00:00 98.9 86 21 96/49 (65) 100 98.9 12/19/17 23:50 87 25 45 12/19/17 23:30 Mechanical Ventilator 12/19/17 23:00 75 16 96/39 (58) 100 12/19/17 22:53 Mechanical Ventilator 12/19/17 22:00 81 16 98/40 (59) 100 12/19/17 21:11 91 24 45 12/19/17 21:03 99.9 87 18 118/57 100 Mechanical Ventilator 15.0 45 99.9 12/19/17 21:00 40 12/19/17 21:00 81 12/19/17 21:00 99.2 81 21 97/45 (62) 100 99.2 12/19/17 20:30 99.9 87 18 118/57 100 Mechanical Ventilator 15.0 45 99.9 12/19/17 20:00 40 12/19/17 19:30 87 18 45 12/19/17 19:30 99.9 82 16 103/57 100 Mechanical Ventilator 15.0 45 99.9 12/19/17 18:54 99.9 12/19/17 18:30 100.0 81 16 97/54 100 Mechanical Ventilator 15.0 40 100.0 12/19/17 18:24 101.6 12/19/17 17:30 101.6 87 17 86/40 100 Mechanical Ventilator 15.0 40 101.6 12/19/17 16:59 40 12/19/17 16:48 90 18 45 12/19/17 16:48 90 18 Mechanical Ventilator 15.0 45 12/19/17 16:30 101.7 90 16 117/64 100 Mechanical Ventilator 45 101.7 12/19/17 16:27 101.6 73 29 103/50 100 Mechanical Ventilator 45 101.7 I&O Intake and Output 12/19/17 12/20/17 19:00 07:00 Intake Total 1100 ml 960 ml Output Total 680 ml Balance 1100 ml 280 ml Intake Oral 0 ml IV Total 1100 ml 960 ml Output Urine Total 680 ml Dressing: saturated Wound: other - see photos Drains: other Cardiovascular: RSR Respiratory: other Abdomen: soft, distended Extremities: edema, tenderness, cyanosis Laboratory Tests Test 12/19/17 16:45 12/19/17 17:30 12/19/17 17:33 12/19/17 19:00 White Blood Count 18.8 K/UL (4.8-10.8) H Red Blood Count 2.85 M/UL (4.20-5.40) L Hemoglobin 8.5 G/DL (12.0-16.0) L Hematocrit 24.2 % (37.0-47.0) L Mean Corpuscular Volume 85 FL (80-99) Mean Corpuscular Hemoglobin 29.9 PG (27.0-31.0) Mean Corpuscular Hemoglobin Concent 35.3 G/DL (32.0-36.0) Red Cell Distribution Width 11.9 % (11.6-14.8) Platelet Count 263 K/UL (150-450) Mean Platelet Volume 6.4 FL (6.5-10.1) L Neutrophils (%) (Auto) % (45.0-75.0) Lymphocytes (%) (Auto) % (20.0-45.0) Monocytes (%) (Auto) % (1.0-10.0) Eosinophils (%) (Auto) % (0.0-3.0) Basophils (%) (Auto) % (0.0-2.0) Differential Total Cells Counted 100 Neutrophils % (Manual) 83 % (45-75) H Lymphocytes % (Manual) 13 % (20-45) L Monocytes % (Manual) 2 % (1-10) Eosinophils % (Manual) 0 % (0-3) Basophils % (Manual) 0 % (0-2) Band Neutrophils 2 % (0-8) Platelet Estimate Adequate Platelet Morphology Normal Red Blood Cell Morphology Normal Hypochromasia 1+ Prothrombin Time 10.7 SEC (9.30-11.50) Prothromb Time International Ratio 1.0 (0.9-1.1) Activated Partial Thromboplast Time 29 SEC (23-33) Sodium Level 123 MMOL/L (136-145) L Potassium Level 5.0 MMOL/L (3.5-5.1) Chloride Level 90 MMOL/L (98-107) L Carbon Dioxide Level 28 MMOL/L (21-32) Anion Gap 5 mmol/L (5-15) Blood Urea Nitrogen 13 mg/dL (7-18) Creatinine 0.7 MG/DL (0.55-1.30) Estimat Glomerular Filtration Rate mL/min (>60) Glucose Level 291 MG/DL (74-106) H Lactic Acid Level 2.00 mmol/L (0.4-2.0) 1.70 mmol/L (0.66-2.22) Calcium Level 9.2 MG/DL (8.5-10.1) Total Bilirubin 0.6 MG/DL (0.2-1.0) Aspartate Amino Transf (AST/SGOT) 26 U/L (15-37) Alanine Aminotransferase (ALT/SGPT) 26 U/L (12-78) Alkaline Phosphatase 276 U/L (46-116) H Total Creatine Kinase 58 U/L (26-308) Creatine Kinase MB 4.1 NG/ML (0.0-3.6) H Creatine Kinase MB Relative Index 7.0 Troponin I 0.000 ng/mL (0.000-0.056) Pro-B-Type Natriuretic Peptide 2277 pg/mL (0-125) H Total Protein 9.8 G/DL (6.4-8.2) H Albumin 2.3 G/DL (3.4-5.0) L Globulin 7.5 g/dL Albumin/Globulin Ratio 0.3 (1.0-2.7) L Urine Color Melly Urine Appearance Cloudy Urine pH 8 (4.5-8.0) Urine Specific [place] 1.015 (1.005-1.035) Urine Protein 3+ (NEGATIVE) H Urine Glucose (UA) Negative (NEGATIVE) Urine Ketones Negative (NEGATIVE) Urine Occult Blood 4+ (NEGATIVE) H Urine Nitrite Negative (NEGATIVE) Urine Bilirubin Negative (NEGATIVE) Urine Ictotest Negative Urine Urobilinogen 1 MG/DL (0.0-1.0) H Urine Leukocyte Esterase 3+ (NEGATIVE) H Urine RBC 2-4 /HPF (0 - 2) H Urine WBC 15-20 /HPF (0 - 2) H Urine Squamous Epithelial Cells Moderate /LPF (NONE/OCC) H Urine Amorphous Sediment Moderate /LPF (NONE) H Urine Bacteria Many /HPF (NONE) H Arterial Blood pH 7.429 (7.350-7.450) Arterial Blood Partial Pressure CO2 39.2 mmHg (35.0-45.0) Arterial Blood Partial Pressure O2 129.5 mmHg (75.0-100.0) H Arterial Blood HCO3 25.4 mmol/L (22.0-26.0) Arterial Blood Oxygen Saturation 98.5 % (92.0-98.0) H Arterial Blood Base Excess 1.0 Dean Test Positive Test 12/20/17 04:30 12/20/17 07:05 12/20/17 08:55 12/20/17 11:40 White Blood Count 14.5 K/UL (4.8-10.8) H Red Blood Count 2.88 M/UL (4.20-5.40) L Hemoglobin 8.3 G/DL (12.0-16.0) L Hematocrit 25.0 % (37.0-47.0) L Mean Corpuscular Volume 87 FL (80-99) Mean Corpuscular Hemoglobin 28.6 PG (27.0-31.0) Mean Corpuscular Hemoglobin Concent 33.1 G/DL (32.0-36.0) Red Cell Distribution Width 12.2 % (11.6-14.8) Platelet Count 245 K/UL (150-450) Mean Platelet Volume 4.2 FL (6.5-10.1) L Neutrophils (%) (Auto) % (45.0-75.0) Lymphocytes (%) (Auto) % (20.0-45.0) Monocytes (%) (Auto) % (1.0-10.0) Eosinophils (%) (Auto) % (0.0-3.0) Basophils (%) (Auto) % (0.0-2.0) Differential Total Cells Counted 100 Neutrophils % (Manual) 86 % (45-75) H Lymphocytes % (Manual) 6 % (20-45) L Monocytes % (Manual) 6 % (1-10) Eosinophils % (Manual) 0 % (0-3) Basophils % (Manual) 0 % (0-2) Band Neutrophils 2 % (0-8) Platelet Estimate Adequate Platelet Morphology Normal Red Blood Cell Morphology Normal Sodium Level 124 MMOL/L (136-145) L Potassium Level 4.1 MMOL/L (3.5-5.1) Chloride Level 93 MMOL/L (98-107) L Carbon Dioxide Level 28 MMOL/L (21-32) Anion Gap 3 mmol/L (5-15) L Blood Urea Nitrogen 11 mg/dL (7-18) Creatinine 0.5 MG/DL (0.55-1.30) L Estimat Glomerular Filtration Rate mL/min (>60) Glucose Level 150 MG/DL (74-106) #H Lactic Acid Level 1.10 mmol/L (0.4-2.0) Calcium Level 8.1 MG/DL (8.5-10.1) L Total Bilirubin 0.7 MG/DL (0.2-1.0) Aspartate Amino Transf (AST/SGOT) 16 U/L (15-37) Alanine Aminotransferase (ALT/SGPT) 20 U/L (12-78) Alkaline Phosphatase 190 U/L (46-116) H Total Protein 7.6 G/DL (6.4-8.2) Albumin 1.7 G/DL (3.4-5.0) L Globulin 5.9 g/dL Albumin/Globulin Ratio 0.3 (1.0-2.7) L Arterial Blood pH 7.447 (7.350-7.450) Arterial Blood Partial Pressure CO2 38.5 mmHg (35.0-45.0) Arterial Blood Partial Pressure O2 136.1 mmHg (75.0-100.0) H Arterial Blood HCO3 26.0 mmol/L (22.0-26.0) Arterial Blood Oxygen Saturation 98.2 % (92.0-98.0) H Arterial Blood Base Excess 1.9 Dean Test Positive Iron Level 11 ug/dL (50-175) L Total Iron Binding Capacity 161 ug/dL (250-450) L Percent Iron Saturation 7 % (15-50) L Unsaturated Iron Binding 150 ug/dL (112-346) Ferritin 221 NG/ML (8-388) Lactate Dehydrogenase 193 U/L (81-234) Vitamin B12 Level 1171 PG/ML (193-986) H Folate 34.1 NG/ML (8.6-58.9) Thyroid Stimulating Hormone (TSH) 0.824 uiU/mL (0.358-3.740) Levetiracetam (Keppra) Level Pending Fibrinogen Pending Plan Problems: (1) Decubitus ulcer (2) Bilateral lower leg cellulitis (3) Sepsis Assessment & Plan: 72F with multiple medical comorbidities, chronic condition, chronic wounds, who presented with sepsis. leukocytosis, tachycardia, HD improved. wounds are very concerning. right heel wound is large with significant necrotic tissue, drainage, foul odor. down to muscle and likely bone. left ankle wound large, down to bone, foul smelling and with serosang drainage. very concerning for osteo and acute infection plain films pending could not obtain MRI because of vent. will order bone scan. given patients condition, chronic wounds, and medical state would really need to have discussion about goals of care. there wounds are large and will require extensive care. given how progressive they are there is considerations for right lower extremity amputation and even left lower extremity amputation. will await exam results. will follow with recs for now, skin protectant, packing with gauze and foam dressings. turn q2h. air mattress, keep off wounds, heel protectors. (4) Ulcer of left ankle (5) Ulcer of right heel and midfoot with necrosis of muscle (6) Decubitus ulcer, heel, right, unstageable (7) Decubitus ulcer of left ankle, stage 4 (8) Abdominal distension Donovan Lujan Dec 20, 2017 13:10
--- NOTE | 2017-12-20 14:30 | Diagnostic Imaging Report ---
Indication: Post line placement Technique: One view of the chest Comparison: 2 hours earlier Findings: Interim placement of right subclavian central venous catheter, tip which projects at the level of the superior vena cava. There is increasing atelectasis at the left lung base. Right infrahilar infiltrate and elevation of the right hemidiaphragm persists. The heart size is normal. There is no pneumothorax. Tracheostomy is again demonstrated Impression: Satisfactory position of right subclavian central venous catheter. No radiographically evident complication Increasing left basilar atelectasis Other stable findings as described This agrees with the preliminary interpretation provided overnight by [facility] teleradiology service.
--- NOTE | 2017-12-20 14:31 | Diagnostic Imaging Report ---
Indication: Abdominal distention Technique: Supine view of the abdomen Comparison: none Findings: Exam is limited due to patient body habitus. Bowel gas pattern is grossly unremarkable. No definite unusual masses or calcifications. There is a gastrostomy tube Impression: Limited. No definite acute process
[2017-12-20] MEDS ORDERED: Clindamycin 900mg 50 ML IV SCH (15:00)
--- NOTE | 2017-12-20 16:03 | Infectious Diseases Prog Note ---
Assessment/Plan Assessment/Plan Abx: IV Vanco x1 12/19 LEvaquin x1 12/19 Assessment: Sepsis 2ry to R foot necrotizing soft tissue infection and Gram positive bacteremia (?Strep A); r/o UTI -CXR New or increased right pleural effusion. Persistent unchanged bilateral basilar atelectatic changes. Other stable findings as described - -R foot Xray: Possible gas within the soft tissues of the heel pad, raises concern for infection with gas-forming organism. Indistinctness of the cortical surfaces of the calcaneal tuberosity, could be artifactual due to overlying shadows but could indicate osteomyelitis. Consider MRI for better characterization if clinically indicated. Osteoporosis. Deformities, as described. No acute bony trauma. Osteoporosis -u/a wbc 15-20, nit neg, leuk +3, sq cell mod -Bx 12/19 1/2 GPC in chains Fever/ leukocytosis; improving L ankle wound- no signs of infection -L ankle Xray: Severely angulated fracture deformity of the distal tibia and fibula, as described. This is presumably chronic. Degree of bony union uncertain based on available images, however. Consider CT for further characterization if this is of clinical concern. Abd distention -KUB: Limited. No definite acute process hx of LE cellulitis/OM chronic resp failure s/p trach/vent dependent Dementia Dysphagia s/p GT GERD PUD chronic non healing wounds PVD Dementia seizure disorder SNF resident Plan: -Continue IV Vancomycn #2 and IV MEropenem #2 pending cultures and add IV Clindamycin for possible necrotizing infection -12/19 SP LEvaquin x1 -Repeat Bcx x2 and u/a -f/u Bcx, sp cx -f/u cx -Monitor CBC/CMP, temperatures -trach/peg care -ICU care -aspiration precautions -wound care per hosp protocol -Sx f/u; will need surgical intervention pending goals of care -MRI unable to be done as patient on vent Thank you for this consultation. Will continue to follow along with you. Discussed with RN and Dr uLjan. Subjective Allergies: Coded Allergies: PENICILLINS (Verified Allergy, Unknown, 12/19/17) Subjective Tm 101.7 leukocytosis improved bacteremic Objective Vital Signs Last 24 Hour Vital Signs Date Time Temp Pulse Resp B/P (MAP) Pulse Ox O2 Delivery O2 Flow Rate FiO2 12/20/17 15:09 72 16 45 12/20/17 15:00 92 18 144/56 (85) 100 12/20/17 14:00 78 18 111/54 (73) 100 12/20/17 13:00 69 18 99/39 (59) 100 12/20/17 12:41 71 16 45 12/20/17 12:00 Mechanical Ventilator Mechanical Ventilator Mechanical Ventilator 12/20/17 12:00 97.8 97.8 12/20/17 12:00 82 12/20/17 12:00 45 12/20/17 12:00 76 18 103/42 (62) 100 12/20/17 11:00 93 25 127/54 (78) 100 12/20/17 10:31 74 14 45 12/20/17 10:00 99.9 85 27 90/39 (56) 100 99.9 12/20/17 09:13 100.7 12/20/17 09:00 100.7 91 24 95/78 (84) 100 100.7 12/20/17 08:44 90 18 45 12/20/17 08:14 101.7 12/20/17 08:00 90 12/20/17 08:00 Mechanical Ventilator Mechanical Ventilator Mechanical Ventilator 12/20/17 08:00 101.7 92 28 104/43 (63) 100 101.7 12/20/17 07:01 95 15 45 12/20/17 07:00 45 12/20/17 07:00 91 23 109/45 (66) 100 12/20/17 06:00 91 19 112/49 (70) 100 12/20/17 05:12 100 15 45 12/20/17 05:00 45 12/20/17 05:00 92 19 113/47 (69) 100 12/20/17 04:00 93 12/20/17 04:00 40 12/20/17 04:00 99.8 93 16 113/48 (69) 100 99.8 12/20/17 04:00 Mechanical Ventilator 12/20/17 03:12 90 16 45 12/20/17 03:00 89 21 110/46 (67) 100 12/20/17 02:00 95 21 97/56 (70) 100 12/20/17 01:30 89 17 45 12/20/17 01:00 89 21 101/46 (64) 100 12/20/17 00:00 86 12/20/17 00:00 40 12/20/17 00:00 98.9 86 21 96/49 (65) 100 98.9 12/19/17 23:50 87 25 45 12/19/17 23:30 Mechanical Ventilator 12/19/17 23:00 75 16 96/39 (58) 100 12/19/17 22:53 Mechanical Ventilator 12/19/17 22:00 81 16 98/40 (59) 100 12/19/17 21:11 91 24 45 12/19/17 21:03 99.9 87 18 118/57 100 Mechanical Ventilator 15.0 45 99.9 12/19/17 21:00 40 12/19/17 21:00 81 12/19/17 21:00 99.2 81 21 97/45 (62) 100 99.2 12/19/17 20:30 99.9 87 18 118/57 100 Mechanical Ventilator 15.0 45 99.9 12/19/17 20:00 40 12/19/17 19:30 87 18 45 12/19/17 19:30 99.9 82 16 103/57 100 Mechanical Ventilator 15.0 45 99.9 12/19/17 18:54 99.9 12/19/17 18:30 100.0 81 16 97/54 100 Mechanical Ventilator 15.0 40 100.0 12/19/17 18:24 101.6 12/19/17 17:30 101.6 87 17 86/40 100 Mechanical Ventilator 15.0 40 101.6 12/19/17 16:59 40 12/19/17 16:48 90 18 45 12/19/17 16:48 90 18 Mechanical Ventilator 15.0 45 12/19/17 16:30 101.7 90 16 117/64 100 Mechanical Ventilator 45 101.7 12/19/17 16:27 101.6 73 29 103/50 100 Mechanical Ventilator 45 101.7 Height (Feet): 5 Height (Inches): 2.00 Weight (Pounds): 178 Objective General Appearance: normal inspection, obese, Chronically Ill, Stupor Head: atraumatic Eyes: bilateral eye PERRL ENT: uvula midline, moist mucus membranes Neck: supple, no bony tend, tracheotomy Respiratory: normal inspection, no respiratory distress, no retraction, no wheezing Cardiovascular tachycardia, other Gastrointestinal: non tender Genitourinary: normal inspection Musculoskeletal: back normal, decreased range of motion - contractures Neurologic: aphasia, motor weakness Psychiatric: depressed affect Skin: other - deep ulcer with surrounding erythema to right heel, left lateral malleolus large ulcer without eryythema Microbiology Date/Time Source Procedure Growth Status 12/19/17 17:00 Blood Blood Culture - Preliminary Resulted 12/19/17 17:18 Other Gram Stain - Final Resulted 12/19/17 17:18 Other Wound Culture Pending Resulted 12/19/17 17:10 Other Gram Stain - Final Resulted 12/19/17 17:10 Other Wound Culture Pending Resulted 12/19/17 17:30 Urine,Clean Catch Urine Culture - Preliminary Resulted 12/19/17 17:40 Rectum Received Laboratory Tests Test 12/19/17 16:45 12/19/17 17:30 12/19/17 17:33 12/19/17 19:00 White Blood Count 18.8 K/UL (4.8-10.8) H Red Blood Count 2.85 M/UL (4.20-5.40) L Hemoglobin 8.5 G/DL (12.0-16.0) L Hematocrit 24.2 % (37.0-47.0) L Mean Corpuscular Volume 85 FL (80-99) Mean Corpuscular Hemoglobin 29.9 PG (27.0-31.0) Mean Corpuscular Hemoglobin Concent 35.3 G/DL (32.0-36.0) Red Cell Distribution Width 11.9 % (11.6-14.8) Platelet Count 263 K/UL (150-450) Mean Platelet Volume 6.4 FL (6.5-10.1) L Neutrophils (%) (Auto) % (45.0-75.0) Lymphocytes (%) (Auto) % (20.0-45.0) Monocytes (%) (Auto) % (1.0-10.0) Eosinophils (%) (Auto) % (0.0-3.0) Basophils (%) (Auto) % (0.0-2.0) Differential Total Cells Counted 100 Neutrophils % (Manual) 83 % (45-75) H Lymphocytes % (Manual) 13 % (20-45) L Monocytes % (Manual) 2 % (1-10) Eosinophils % (Manual) 0 % (0-3) Basophils % (Manual) 0 % (0-2) Band Neutrophils 2 % (0-8) Platelet Estimate Adequate Platelet Morphology Normal Red Blood Cell Morphology Normal Hypochromasia 1+ Prothrombin Time 10.7 SEC (9.30-11.50) Prothromb Time International Ratio 1.0 (0.9-1.1) Activated Partial Thromboplast Time 29 SEC (23-33) Sodium Level 123 MMOL/L (136-145) L Potassium Level 5.0 MMOL/L (3.5-5.1) Chloride Level 90 MMOL/L (98-107) L Carbon Dioxide Level 28 MMOL/L (21-32) Anion Gap 5 mmol/L (5-15) Blood Urea Nitrogen 13 mg/dL (7-18) Creatinine 0.7 MG/DL (0.55-1.30) Estimat Glomerular Filtration Rate mL/min (>60) Glucose Level 291 MG/DL (74-106) H Lactic Acid Level 2.00 mmol/L (0.4-2.0) 1.70 mmol/L (0.66-2.22) Calcium Level 9.2 MG/DL (8.5-10.1) Total Bilirubin 0.6 MG/DL (0.2-1.0) Aspartate Amino Transf (AST/SGOT) 26 U/L (15-37) Alanine Aminotransferase (ALT/SGPT) 26 U/L (12-78) Alkaline Phosphatase 276 U/L (46-116) H Total Creatine Kinase 58 U/L (26-308) Creatine Kinase MB 4.1 NG/ML (0.0-3.6) H Creatine Kinase MB Relative Index 7.0 Troponin I 0.000 ng/mL (0.000-0.056) Pro-B-Type Natriuretic Peptide 2277 pg/mL (0-125) H Total Protein 9.8 G/DL (6.4-8.2) H Albumin 2.3 G/DL (3.4-5.0) L Globulin 7.5 g/dL Albumin/Globulin Ratio 0.3 (1.0-2.7) L Urine Color Melly Urine Appearance Cloudy Urine pH 8 (4.5-8.0) Urine Specific [place] 1.015 (1.005-1.035) Urine Protein 3+ (NEGATIVE) H Urine Glucose (UA) Negative (NEGATIVE) Urine Ketones Negative (NEGATIVE) Urine Occult Blood 4+ (NEGATIVE) H Urine Nitrite Negative (NEGATIVE) Urine Bilirubin Negative (NEGATIVE) Urine Ictotest Negative Urine Urobilinogen 1 MG/DL (0.0-1.0) H Urine Leukocyte Esterase 3+ (NEGATIVE) H Urine RBC 2-4 /HPF (0 - 2) H Urine WBC 15-20 /HPF (0 - 2) H Urine Squamous Epithelial Cells Moderate /LPF (NONE/OCC) H Urine Amorphous Sediment Moderate /LPF (NONE) H Urine Bacteria Many /HPF (NONE) H Arterial Blood pH 7.429 (7.350-7.450) Arterial Blood Partial Pressure CO2 39.2 mmHg (35.0-45.0) Arterial Blood Partial Pressure O2 129.5 mmHg (75.0-100.0) H Arterial Blood HCO3 25.4 mmol/L (22.0-26.0) Arterial Blood Oxygen Saturation 98.5 % (92.0-98.0) H Arterial Blood Base Excess 1.0 Dean Test Positive Test 12/20/17 04:30 12/20/17 07:05 12/20/17 08:55 12/20/17 11:40 White Blood Count 14.5 K/UL (4.8-10.8) H Red Blood Count 2.88 M/UL (4.20-5.40) L Hemoglobin 8.3 G/DL (12.0-16.0) L Hematocrit 25.0 % (37.0-47.0) L Mean Corpuscular Volume 87 FL (80-99) Mean Corpuscular Hemoglobin 28.6 PG (27.0-31.0) Mean Corpuscular Hemoglobin Concent 33.1 G/DL (32.0-36.0) Red Cell Distribution Width 12.2 % (11.6-14.8) Platelet Count 245 K/UL (150-450) Mean Platelet Volume 4.2 FL (6.5-10.1) L Neutrophils (%) (Auto) % (45.0-75.0) Lymphocytes (%) (Auto) % (20.0-45.0) Monocytes (%) (Auto) % (1.0-10.0) Eosinophils (%) (Auto) % (0.0-3.0) Basophils (%) (Auto) % (0.0-2.0) Differential Total Cells Counted 100 Neutrophils % (Manual) 86 % (45-75) H Lymphocytes % (Manual) 6 % (20-45) L Monocytes % (Manual) 6 % (1-10) Eosinophils % (Manual) 0 % (0-3) Basophils % (Manual) 0 % (0-2) Band Neutrophils 2 % (0-8) Platelet Estimate Adequate Platelet Morphology Normal Red Blood Cell Morphology Normal Sodium Level 124 MMOL/L (136-145) L Potassium Level 4.1 MMOL/L (3.5-5.1) Chloride Level 93 MMOL/L (98-107) L Carbon Dioxide Level 28 MMOL/L (21-32) Anion Gap 3 mmol/L (5-15) L Blood Urea Nitrogen 11 mg/dL (7-18) Creatinine 0.5 MG/DL (0.55-1.30) L Estimat Glomerular Filtration Rate mL/min (>60) Glucose Level 150 MG/DL (74-106) #H Lactic Acid Level 1.10 mmol/L (0.4-2.0) Calcium Level 8.1 MG/DL (8.5-10.1) L Total Bilirubin 0.7 MG/DL (0.2-1.0) Aspartate Amino Transf (AST/SGOT) 16 U/L (15-37) Alanine Aminotransferase (ALT/SGPT) 20 U/L (12-78) Alkaline Phosphatase 190 U/L (46-116) H Total Protein 7.6 G/DL (6.4-8.2) Albumin 1.7 G/DL (3.4-5.0) L Globulin 5.9 g/dL Albumin/Globulin Ratio 0.3 (1.0-2.7) L Arterial Blood pH 7.447 (7.350-7.450) Arterial Blood Partial Pressure CO2 38.5 mmHg (35.0-45.0) Arterial Blood Partial Pressure O2 136.1 mmHg (75.0-100.0) H Arterial Blood HCO3 26.0 mmol/L (22.0-26.0) Arterial Blood Oxygen Saturation 98.2 % (92.0-98.0) H Arterial Blood Base Excess 1.9 Dean Test Positive Iron Level 11 ug/dL (50-175) L Total Iron Binding Capacity 161 ug/dL (250-450) L Percent Iron Saturation 7 % (15-50) L Unsaturated Iron Binding 150 ug/dL (112-346) Ferritin 221 NG/ML (8-388) Lactate Dehydrogenase 193 U/L (81-234) Vitamin B12 Level 1171 PG/ML (193-986) H Folate 34.1 NG/ML (8.6-58.9) Thyroid Stimulating Hormone (TSH) 0.824 uiU/mL (0.358-3.740) Levetiracetam (Keppra) Level Pending Fibrinogen 630 mg/dL (200-400) H Current Medications Medications (Trade) Dose Ordered Sig/[place] Route PRN Reason Start Time Stop Time Status Last Admin Dose Admin Acetaminophen (Tylenol) 650 mg Q6H PRN ORAL Mild Pain/Temp > 100.5 12/20/17 08:15 01/19/18 08:14 12/20/17 08:14 Clindamycin HCl/ Dextrose 50 ml @ 100 mls/hr Q8H IV 12/20/17 15:00 12/27/17 14:59 12/20/17 15:23 Gadobutrol (Gadavist) 7.5 mmol NOW PRN IV Radiology Procedure 12/20/17 09:47 12/20/17 23:59 Gadobutrol (Gadavist) 7.5 mmol NOW PRN IV Radiology Procedure 12/20/17 09:47 12/20/17 23:59 Heparin Sodium (Porcine) (Heparin 5000 units/ml) 5,000 units EVERY 12 HOURS SUBQ 12/20/17 09:00 01/19/18 08:59 12/20/17 08:16 Meropenem 1 gm/ Sodium Chloride 55 ml @ 110 mls/hr Q12HR IVPB 12/20/17 21:00 12/25/17 20:59 Pantoprazole (Protonix) 40 mg DAILY IVP 12/20/17 09:00 01/19/18 08:59 12/20/17 08:13 Sodium Chloride 1,000 ml @ 100 mls/hr Q10H IV 12/20/17 04:00 01/19/18 03:59 12/20/17 11:41 Vancomycin HCl (Vanco rx to dose) 1 ea DAILY PRN MISC Per rx protocol 12/19/17 19:30 01/18/18 19:29 Vancomycin HCl/ Dextrose 250 ml @ 166.667 mls/hr Q24H IVPB 12/20/17 18:00 12/25/17 17:59 Ximena Gradne M.D. Dec 20, 2017 16:03
--- NOTE | 2017-12-20 16:30 | Consultation ---
DATE OF CONSULTATION: 12/20/2017 CONSULTING PHYSICIAN: Fahad Dacosta M.D. REFERRING PHYSICIAN: Phoenix Gonzalez M.D. REASON FOR CONSULTATION: 1. Hyponatremia. 2. Hypotension. HISTORY OF PRESENT ILLNESS: The patient is a 72-year-old female, chronically ventilatory dependent and has a tracheostomy. She was sent for further evaluation and care of hypotension and bilateral lower extremity drainage and chronic nonhealing wounds when it was noted that her sodium was 123. History is limited, as the patient is chronic ventilatory dependent. Information was obtained through electronic chart review. The patient overnight was hemodynamically stabilized and serum sodium today is 124. PAST MEDICAL HISTORY: 1. Chronic respiratory failure. 2. Hyperlipidemia. 3. Seizures. 4. Hypertension. 5. Hypokalemia. PAST SURGICAL HISTORY: 1. G-tube. 2. Tracheostomy. FAMILY HISTORY: Noncontributory. REVIEW OF SYSTEMS: Cannot obtain, as the patient is nonverbal. PHYSICAL EXAMINATION: GENERAL: The patient awake, in no overt distress. VITAL SIGNS: Blood pressure 109/45, respiratory rate 23, pulse 91, temperature 99.8 degrees, and FiO2 45% on mechanical ventilation. HEENT: Extraocular muscles intact. No lymphadenopathy noted. CARDIOVASCULAR: S1 and S2. No rubs or gallops. PULMONARY: Mild upper rhonchi. Fair air movement in all winter. ABDOMEN: Nondistended and nontender. EXTREMITY: Bilateral lower extremities are bandaged. Trace edema. LABORATORY AND DIAGNOSTIC DATA: Labs dated 12/20/2017, sodium 124, potassium 4.1, and creatinine 0.5. AST and ALT 16 and 20 respectively. White cell count 14.5, hemoglobin 8.3, and platelet count 245. ASSESSMENT AND PLAN: 1. Hyponatremia. 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 We would just recommend free water restriction at this time. Serum sodium has improved up to 124. We will monitor on a daily basis. Avoid free water. Continue isotonic IV fluids for the time being. If necessary, we will use 1 dose of [place] if available at this facility. 2. Septic shock secondary to chronic non-healing wounds in the lower extremities. IV antibiotics management per Infectious Disease. 3. Chronic respiratory failure, ventilatory-dependent. Defer management to Dr. Masterson. 4. Hypotension. Continue to hold antihypertensive medications. Lisinopril has been stopped. Let me take this opportunity to thank, Dr. Gonzalez, for his confidence in my nephrological service. I will continue to follow the patient on daily basis. Fahad Dacosta MD DR: CLAY JOB#: [id number] CC:
[2017-12-20] MEDS ORDERED: Gadavist 7.5mMol/7.5ml vial IV ONE (17:30)
[2017-12-20] MEDS ORDERED: Vancomycin 1250mg/D5W 250ml IVPB SCH (18:00)
[2017-12-20] MEDS ORDERED: Meropenem 1 GM in NS 55 ML IVPB SCH (21:00)
[2017-12-20] MEDS: Heparin 5000 units/ml inj SUBQ SCH (21:42)
[2017-12-20] MEDS: Clindamycin 900mg 50 ML IV SCH (23:06)
--- NOTE | 2017-12-20 23:30 | History and Physical Report ---
DATE OF ADMISSION: 12/19/2017 NOTE: POOR AUDIO Covering for Dr. Andrews. REASON FOR ADMISSION: Lower extremity cellulitis, osteomyelitis. IDENTIFYING DATA: The patient is a pleasant 72-year-old female, history of lower extremity cellulitis, osteomyelitis; chronic respiratory failure, status post trach and vent; dementia; dysphagia, status post G-tube; GERD; peptic ulcer disease; chronic nonhealing wounds; PVD; seizure disorder; SNF resident, presented to the ER on 12/19/2017 with increasing bilateral lower extremity wound drainage. In the ER, noted the patient to have foul-smelling yellow serosanguineous discharge, febrile up to 101.7 degrees, WBC of 19,000. The patient was recently discharged from admitted under the care of myself as I am covering for Dr. Andrews and Dr. Masterson is covering as well. PAST MEDICAL HISTORY: As noted above. PAST SURGICAL HISTORY: G-tube and trach. ALLERGIES: Penicillin. FAMILY HISTORY: Noncontributory. REVIEW OF SYSTEMS: Difficult to obtain, the patient is chronically ill. PHYSICAL EXAMINATION: VITAL SIGNS: Reviewed. GENERAL: No distress. Chronically ill. Stupor. HEENT: No headache, hearing or vision changes. PULMONARY: Decreased breath sounds. Status post trach, site is clear, dry, and intact. CARDIOVASCULAR: Regular rate. The patient has tachycardia. ABDOMEN: Soft, nontender, and nondistended. contractures. EXTREMITIES: No cyanosis, clubbing, or edema noted. Deep ulceration noted. Right heel erythema lateral malleolus without erythema. LABORATORY AND DIAGNOSTIC DATA: WBC 14.5, hemoglobin 8.3, and platelet count 255,000. Chemistry were reviewed. B12 pending. Folic acid pending. TSH pending. Ferritin and iron saturation are pending as well. ASSESSMENT AND RECOMMENDATIONS: 1. Anemia due to underlying chronic disease. Anemia workup has been ordered. 2. Leukocytosis due to underlying septic shock, has been seen by ID Service. The patient with urinary tract infection. 3. Septic shock due to bilateral lower extremity wound. She is getting vancomycin and Levaquin. 4. Abdominal distention, rule out infection. 5. Chronic respiratory failure, status post trach. 6. Dysphagia, status post gastrostomy tube. 7. Gastroesophageal reflux disease. 8. Peripheral vascular disease. 9. Dementia. 10. Seizure disorder. 11. shelter facility resident. 12. Appreciate recommendations by consultants. Phoenix Gonzalez M.D. DR: SHAUN JOB#: [id number] CC:
[2017-12-21] VITALS: BP 108/55
[2017-12-21] MEDS: Dyna-Hex 2% Top Sol 2oz TOPIC SCH ×2 (02:58→20:32)
[2017-12-21 04:00] VITALS: BP 136/56
[2017-12-21 05:39] LABS: BASOPHILS % (AUTO) 0.4 % (0.0-2.0); EOSINOPHILS % (AUTO) 0.6 % (0.0-3.0); HEMATOCRIT 24.5 % (37.0-47.0); HEMOGLOBIN 8.2 G/DL (12.0-16.0); LYMPHOCYTES % (AUTO) 12.5 % (20.0-45.0); MEAN CORPUSCULAR VOLUME 86 FL (80-99); MONOCYTES % (AUTO) 10.6 % (1.0-10.0); PLATELET COUNT 314 K/UL (150-450); RED BLOOD COUNT 2.84 M/UL (4.20-5.40); RED CELL DISTRIBUTION WIDTH 12.2 % (11.6-14.8); WHITE BLOOD COUNT 9.5 K/UL (4.8-10.8)
[2017-12-21 05:41] LABS: BILIRUBIN, URINE NEGATIVE (NEGATIVE); COLOR,URINE PALE YELLOW; GLUCOSE, URINE (UA) NEGATIVE (NEGATIVE); KETONES,URINE NEGATIVE (NEGATIVE); LEUKOCYTE ESTERASE ,URINE 3+ (NEGATIVE); NITRITE,URINE NEGATIVE (NEGATIVE); PH,URINE 7 (4.5-8.0); PROTEIN,URINE 1+ (NEGATIVE); UROBILINOGEN,URINE NORMAL MG/DL (0.0-1.0)
[2017-12-21 05:52] LABS: ALANINE AMINOTRANSFERASE 20 U/L (12-78); ALBUMIN 1.8 G/DL (3.4-5.0); ALBUMIN/GLOBULIN RATIO 0.3 (1.0-2.7); ALKALINE PHOSPHATASE 181 U/L (46-116); ANION GAP 6 mmol/L (5-15); ASPARTATE AMINO TRANSFERASE 20 U/L (15-37); BILIRUBIN,TOTAL 0.6 MG/DL (0.2-1.0); BLOOD UREA NITROGEN 7 mg/dL (7-18); CALCIUM 7.8 MG/DL (8.5-10.1); CARBON DIOXIDE 29 MMOL/L (21-32); CHLORIDE 96 MMOL/L (98-107); CREATININE 0.5 MG/DL (0.55-1.30); PHOSPHORUS 3.1 MG/DL (2.5-4.9); SODIUM 131 MMOL/L (136-145)
[2017-12-21 05:54] LABS: POTASSIUM 2.4 MMOL/L (3.5-5.1)
[2017-12-21 05:55] LABS: APPEARANCE,URINE CLOUDY
[2017-12-21] MEDS: Clindamycin 900mg 50 ML IV SCH ×3 (06:20→23:04)
[2017-12-21 08:00] VITALS: BP 131/62
--- NOTE | 2017-12-21 08:13 | Cardiology Report ---
APPROVED REPORT EXAM: Two-dimensional and M-mode echocardiogram with Doppler and color Doppler. INDICATION CVA/TIA M-Mode DIMENSIONS IVSd1.2 (0.7-1.1cm)Left Atrium (MM)3.0 (1.6-4.0cm) LVDd5.0 (3.5-5.6cm)Aortic Root2.6 (2.0-3.7cm) PWd0.9 (0.7-1.1cm)Aortic Cusp Exc.1.5 (1.5-2.0cm) LVDs2.8 (2.5-4.0cm) PWs1.6 cm Normal left ventricular chamber size, systolic function and wall motion. Left ventricular ejection fraction estimated to be 60 %. Mild left ventricular hypertrophy. Anterior Echo-free space, may be due to pericardial fat or effusion. All other cardiac chamber sizes are within normal limits. Mild focal aortic valve sclerosis with adequate cusp excursion. Thickened mitral valve leaflets with normal excursion. Mild mitral annulus and aortic root calcification. Normal pulmonic valve structure. Normal tricuspid valve structure. IVC is normal in size with physiological collapse. A color flow and spectral Doppler study was performed and revealed: No aortic insufficiency. Mild mitral regurgitation. Mitral diastolic velocities suggest mild left ventricular diastolic dysfunction (Grade I). Mild tricuspid regurgitation. Tricuspid systolic velocities suggests peak right ventricular systolic pressure of 37 mmHg, consistent with mild pulmonary hypertension. No pulmonic regurgitation present.
[2017-12-21] MEDS: Pantoprazole Inj IVP SCH (09:18)
[2017-12-21] MEDS: Meropenem 1 GM in NS 55 ML IVPB SCH ×2 (09:19→20:32)
[2017-12-21] MEDS: Heparin 5000 units/ml inj SUBQ SCH ×2 (09:23→20:33)
--- NOTE | 2017-12-21 09:29 | Nephrology Progress Note ---
Assessment/Plan Assessment/Plan A/P 1.Hyponatremia- Na improved over 2 days 123---124----131 - Keprra level pending - min free water. DC NS as TFs to start 2. Resp FL- trached/vent 3. Sepsis- per ID mgmt 4. Hypok+ being replaced Subjective Date patient seen: Dec 21, 2017 Time patient seen: 09:26 ROS Limited/Unobtainable: Yes Allergies: Coded Allergies: PENICILLINS (Verified Allergy, Unknown, 12/19/17) All Systems: reviewed and negative except above Subjective Patient trached/vent nonverbal Objective Last 24 Hour Vital Signs Date Time Temp Pulse Resp B/P (MAP) Pulse Ox O2 Delivery O2 Flow Rate FiO2 12/21/17 08:00 97.5 76 20 131/62 (85) 97 97.5 12/21/17 05:20 78 13 30 12/21/17 04:00 30 12/21/17 04:00 100.2 83 24 136/56 (82) 95 100.2 12/21/17 04:00 Mechanical Ventilator Mechanical Ventilator Mechanical Ventilator 12/21/17 03:35 86 12/21/17 03:06 78 13 30 12/21/17 01:25 81 13 30 12/21/17 00:00 45 12/21/17 00:00 Mechanical Ventilator Mechanical Ventilator Mechanical Ventilator 12/21/17 00:00 99.0 85 20 108/55 (72) 100 99.0 12/20/17 23:33 85 12/20/17 22:33 77 18 45 12/20/17 21:10 78 18 45 12/20/17 20:00 87 12/20/17 20:00 Mechanical Ventilator Mechanical Ventilator Mechanical Ventilator 12/20/17 20:00 45 12/20/17 20:00 98.9 86 22 129/64 (85) 100 98.9 12/20/17 19:07 79 18 45 12/20/17 17:00 92 18 134/56 (82) 99 12/20/17 16:31 73 16 45 12/20/17 16:00 Mechanical Ventilator Mechanical Ventilator Mechanical Ventilator 12/20/17 16:00 45 12/20/17 16:00 96 12/20/17 16:00 98.7 96 27 145/61 (89) 100 98.7 12/20/17 15:09 72 16 45 12/20/17 15:00 92 18 144/56 (85) 100 12/20/17 14:00 78 18 111/54 (73) 100 12/20/17 13:00 69 18 99/39 (59) 100 12/20/17 12:41 71 16 45 12/20/17 12:00 Mechanical Ventilator Mechanical Ventilator Mechanical Ventilator 12/20/17 12:00 97.8 97.8 12/20/17 12:00 82 12/20/17 12:00 45 12/20/17 12:00 76 18 103/42 (62) 100 12/20/17 11:00 93 25 127/54 (78) 100 12/20/17 10:31 74 14 45 12/20/17 10:00 99.9 85 27 90/39 (56) 100 99.9 Intake and Output 12/20/17 12/21/17 19:00 07:00 Intake Total 1300.000 ml 1443.5 ml Output Total 550 ml 1500 ml Balance 750.000 ml -56.5 ml IV Total 1300.000 ml 1443.5 ml Output Urine Total 550 ml 1500 ml # Bowel Movements 1 1 Laboratory Tests 12/20/17 11:40: Fibrinogen 630H 12/20/17 17:20: Urine Color Pale yellow, Urine Appearance Cloudy, Urine pH 7, Urine Specific [place] 1.010, Urine Protein 1+H, Urine Glucose (UA) Negative, Urine Ketones Negative, Urine Occult Blood 4+H, Urine Nitrite Negative, Urine Bilirubin Negative, Urine Urobilinogen Normal, Urine Leukocyte Esterase 3+H, Urine RBC 20- 30H, Urine WBC TntcH, Urine Squamous Epithelial Cells Few, Urine Bacteria ManyH 12/21/17 04:00: White Blood Count 9.5, Red Blood Count 2.84L, Hemoglobin 8.2L, Hematocrit 24.5L , Mean Corpuscular Volume 86, Mean Corpuscular Hemoglobin 28.9, Mean Corpuscular Hemoglobin Concent 33.5, Red Cell Distribution Width 12.2, Platelet Count 314, Mean Platelet Volume 6.1L, Neutrophils (%) (Auto) 76.0H, Lymphocytes (%) (Auto) 12.5L, Monocytes (%) (Auto) 10.6H, Eosinophils (%) (Auto) 0.6, Basophils (%) (Auto) 0.4, Sodium Level 131L, Potassium Level 2.4*L, Chloride Level 96L, Carbon Dioxide Level 29, Anion Gap 6, Blood Urea Nitrogen 7, Creatinine 0.5L, Estimat Glomerular Filtration Rate , Glucose Level 126H, Calcium Level 7.8L, Phosphorus Level 3.1, Magnesium Level 1.7L, Total Bilirubin 0.6, Aspartate Amino Transf (AST/SGOT) 20, Alanine Aminotransferase (ALT/SGPT) 20, Alkaline Phosphatase 181H, Total Protein 7.8, Albumin 1.8L, Globulin 6.0, Albumin/Globulin Ratio 0.3L Height (Feet): 5 Height (Inches): 2.00 Weight (Pounds): 185 General Appearance: WD/WN, no apparent distress EENT: PERRL/EOMI Neck: non-tender, normal alignment Cardiovascular: normal peripheral pulses, normal rate Respiratory/Chest: chest wall non-tender, rhonchi - bilaterally Abdomen: normal bowel sounds, non tender, soft Edema: no edema noted Arm (L), no edema noted Arm (R), no edema noted Leg (L), no edema noted Leg (R), no edema noted Pedal (L), no edema noted Pedal (R), no edema noted Generalized Fahad Dacosta M.D. Dec 21, 2017 09:29
--- NOTE | 2017-12-21 09:56 | Diagnostic Imaging Report ---
Indication: Dyspnea Technique: One view of the chest Comparison: 12/20/2017 Findings: Right jugular central venous catheter, tracheostomy remain. Bilateral basilar atelectatic changes persist, unchanged. There may be trace left pleural fluid Impression: Near left costophrenic angle blunting, could indicate trace pleural fluid Otherwise little filter changer one day
--- NOTE | 2017-12-21 10:21 | Pulmonolgy Critical Care Note ---
Critical Care - Asmt/Plan Problems: (1) Acute on chronic respiratory failure (2) Sepsis (3) Ventilator dependence (4) Quadriplegia (5) Decubitus ulcer Respiratory: monitor respiratory rate, adjust FIO2, CXR Cardiac: continue to monitor HR/BP Renal: F/U I&O Infectious Disease: check cultures, continue antibiotics Gastrointestinal: hold feedings Endocrine: check TSH, check HgA1C, continue sliding scale insulin Hematologic: monitor H/H, transfuse if hgb<8.5 Neurologic: PRN Ativan, PRN Morphine, keep patient comfortable Prophylaxis: Protonix, Heparin Time Spent (Minutes): 40 Notes Reviewed: cardio, renal Discussed with: case packer and sealeraccounting office manager - Objective Last 24 Hour Vital Signs Date Time Temp Pulse Resp B/P (MAP) Pulse Ox O2 Delivery O2 Flow Rate FiO2 12/21/17 08:40 64 13 30 12/21/17 08:00 97.5 76 20 131/62 (85) 97 97.5 12/21/17 06:30 65 12 30 12/21/17 05:20 78 13 30 12/21/17 04:00 30 12/21/17 04:00 100.2 83 24 136/56 (82) 95 100.2 12/21/17 04:00 Mechanical Ventilator Mechanical Ventilator Mechanical Ventilator 12/21/17 03:35 86 12/21/17 03:06 78 13 30 12/21/17 01:25 81 13 30 12/21/17 00:00 45 12/21/17 00:00 Mechanical Ventilator Mechanical Ventilator Mechanical Ventilator 12/21/17 00:00 99.0 85 20 108/55 (72) 100 99.0 12/20/17 23:33 85 12/20/17 22:33 77 18 45 12/20/17 21:10 78 18 45 12/20/17 20:00 87 12/20/17 20:00 Mechanical Ventilator Mechanical Ventilator Mechanical Ventilator 12/20/17 20:00 45 12/20/17 20:00 98.9 86 22 129/64 (85) 100 98.9 12/20/17 19:07 79 18 45 12/20/17 17:00 92 18 134/56 (82) 99 12/20/17 16:31 73 16 45 12/20/17 16:00 Mechanical Ventilator Mechanical Ventilator Mechanical Ventilator 12/20/17 16:00 45 12/20/17 16:00 96 12/20/17 16:00 98.7 96 27 145/61 (89) 100 98.7 12/20/17 15:09 72 16 45 12/20/17 15:00 92 18 144/56 (85) 100 12/20/17 14:00 78 18 111/54 (73) 100 12/20/17 13:00 69 18 99/39 (59) 100 12/20/17 12:41 71 16 45 12/20/17 12:00 Mechanical Ventilator Mechanical Ventilator Mechanical Ventilator 12/20/17 12:00 97.8 97.8 12/20/17 12:00 82 12/20/17 12:00 45 12/20/17 12:00 76 18 103/42 (62) 100 12/20/17 11:00 93 25 127/54 (78) 100 12/20/17 10:31 74 14 45 Status: awake Condition: critical HEENT: atraumatic Lungs: clear Heart: HR/BP unstable Abdomen: soft, active bowel sounds Extremities: no C/C/E Micro: Microbiology Date/Time Source Procedure Growth Status 12/19/17 17:00 Blood Blood Culture - Preliminary Streptococcus Pyogenes Grp A Resulted 12/19/17 16:45 Blood Blood Culture - Preliminary Streptococcus Pyogenes Grp A Resulted 12/19/17 17:18 Other Gram Stain - Final Resulted 12/19/17 17:18 Wound Culture - Preliminary Staphylococcus Aureus Streptococcus Pyogenes Grp A Resulted 12/19/17 17:10 Other Gram Stain - Final Resulted 12/19/17 17:10 Wound Culture - Preliminary Staphylococcus Aureus Gram Negative Bacillus 1 Resulted 12/19/17 17:30 Urine,Clean Catch Urine Culture - Preliminary Gram Negative Bacillus 1 Resulted 12/20/17 09:00 Rectum - Preliminary Resulted 12/19/17 17:40 Rectum Received Critical Care - Subjective ROS Limited/Unobtainable: No Condition: critical EKG Rhythm: Sinus Rhythm FI02: 30 Vent Support Breath Rate: 10 Vent Support Mode: AC Vent Tidal Volume: 450 Sputum Amount: Small PEEP: 5.0 PIP: 22 I&O: Intake and Output 12/20/17 12/21/17 19:00 07:00 Intake Total 1300.000 ml 1443.5 ml Output Total 550 ml 1500 ml Balance 750.000 ml -56.5 ml IV Total 1300.000 ml 1443.5 ml Output Urine Total 550 ml 1500 ml # Bowel Movements 1 1 CXR: bibasilar infiltrate Labs: Laboratory Tests Test 12/20/17 11:40 12/20/17 17:20 12/21/17 04:00 Fibrinogen 630 mg/dL (200-400) H Urine Color Pale yellow Urine Appearance Cloudy Urine pH 7 (4.5-8.0) Urine Specific [place] 1.010 (1.005-1.035) Urine Protein 1+ (NEGATIVE) H Urine Glucose (UA) Negative (NEGATIVE) Urine Ketones Negative (NEGATIVE) Urine Occult Blood 4+ (NEGATIVE) H Urine Nitrite Negative (NEGATIVE) Urine Bilirubin Negative (NEGATIVE) Urine Urobilinogen Normal MG/DL (0.0-1.0) Urine Leukocyte Esterase 3+ (NEGATIVE) H Urine RBC 20-30 /HPF (0 - 2) H Urine WBC Tntc /HPF (0 - 2) H Urine Squamous Epithelial Cells Few /LPF (NONE/OCC) Urine Bacteria Many /HPF (NONE) H White Blood Count 9.5 K/UL (4.8-10.8) Red Blood Count 2.84 M/UL (4.20-5.40) L Hemoglobin 8.2 G/DL (12.0-16.0) L Hematocrit 24.5 % (37.0-47.0) L Mean Corpuscular Volume 86 FL (80-99) Mean Corpuscular Hemoglobin 28.9 PG (27.0-31.0) Mean Corpuscular Hemoglobin Concent 33.5 G/DL (32.0-36.0) Red Cell Distribution Width 12.2 % (11.6-14.8) Platelet Count 314 K/UL (150-450) Mean Platelet Volume 6.1 FL (6.5-10.1) L Neutrophils (%) (Auto) 76.0 % (45.0-75.0) H Lymphocytes (%) (Auto) 12.5 % (20.0-45.0) L Monocytes (%) (Auto) 10.6 % (1.0-10.0) H Eosinophils (%) (Auto) 0.6 % (0.0-3.0) Basophils (%) (Auto) 0.4 % (0.0-2.0) Sodium Level 131 MMOL/L (136-145) L Potassium Level 2.4 MMOL/L (3.5-5.1) *L Chloride Level 96 MMOL/L (98-107) L Carbon Dioxide Level 29 MMOL/L (21-32) Anion Gap 6 mmol/L (5-15) Blood Urea Nitrogen 7 mg/dL (7-18) Creatinine 0.5 MG/DL (0.55-1.30) L Estimat Glomerular Filtration Rate mL/min (>60) Glucose Level 126 MG/DL (74-106) H Calcium Level 7.8 MG/DL (8.5-10.1) L Phosphorus Level 3.1 MG/DL (2.5-4.9) Magnesium Level 1.7 MG/DL (1.8-2.4) L Total Bilirubin 0.6 MG/DL (0.2-1.0) Aspartate Amino Transf (AST/SGOT) 20 U/L (15-37) Alanine Aminotransferase (ALT/SGPT) 20 U/L (12-78) Alkaline Phosphatase 181 U/L (46-116) H Total Protein 7.8 G/DL (6.4-8.2) Albumin 1.8 G/DL (3.4-5.0) L Globulin 6.0 g/dL Albumin/Globulin Ratio 0.3 (1.0-2.7) L Ang Masterson MD Dec 21, 2017 10:21
[2017-12-21] MEDS ORDERED: Tubing IV Secondary IV ONE ×2 (10:58→11:00)
[2017-12-21] MEDS ORDERED: NS 275ml ONE ×2 (10:58→11:00)
[2017-12-21 11:33] VITALS: BP 141/63
--- NOTE | 2017-12-21 11:33 | General Surgery Progress Note ---
General Surgery-Progress Note Objective Last 24 Hour Vital Signs Date Time Temp Pulse Resp B/P (MAP) Pulse Ox O2 Delivery O2 Flow Rate FiO2 12/21/17 08:40 64 13 30 12/21/17 08:00 Mechanical Ventilator Mechanical Ventilator Mechanical Ventilator 12/21/17 08:00 97.5 76 20 131/62 (85) 97 97.5 12/21/17 08:00 30 12/21/17 06:30 65 12 30 12/21/17 05:20 78 13 30 12/21/17 04:00 30 12/21/17 04:00 100.2 83 24 136/56 (82) 95 100.2 12/21/17 04:00 Mechanical Ventilator Mechanical Ventilator Mechanical Ventilator 12/21/17 03:35 86 12/21/17 03:06 78 13 30 12/21/17 01:25 81 13 30 12/21/17 00:00 45 12/21/17 00:00 Mechanical Ventilator Mechanical Ventilator Mechanical Ventilator 12/21/17 00:00 99.0 85 20 108/55 (72) 100 99.0 12/20/17 23:33 85 12/20/17 22:33 77 18 45 12/20/17 21:10 78 18 45 12/20/17 20:00 87 12/20/17 20:00 Mechanical Ventilator Mechanical Ventilator Mechanical Ventilator 12/20/17 20:00 45 12/20/17 20:00 98.9 86 22 129/64 (85) 100 98.9 12/20/17 19:07 79 18 45 12/20/17 17:00 92 18 134/56 (82) 99 12/20/17 16:31 73 16 45 12/20/17 16:00 Mechanical Ventilator Mechanical Ventilator Mechanical Ventilator 12/20/17 16:00 45 12/20/17 16:00 96 12/20/17 16:00 98.7 96 27 145/61 (89) 100 98.7 12/20/17 15:09 72 16 45 12/20/17 15:00 92 18 144/56 (85) 100 12/20/17 14:00 78 18 111/54 (73) 100 12/20/17 13:00 69 18 99/39 (59) 100 12/20/17 12:41 71 16 45 12/20/17 12:00 Mechanical Ventilator Mechanical Ventilator Mechanical Ventilator 12/20/17 12:00 97.8 97.8 12/20/17 12:00 82 12/20/17 12:00 45 12/20/17 12:00 76 18 103/42 (62) 100 I&O Intake and Output 12/20/17 12/21/17 19:00 07:00 Intake Total 1300.000 ml 1443.5 ml Output Total 550 ml 1500 ml Balance 750.000 ml -56.5 ml IV Total 1300.000 ml 1443.5 ml Output Urine Total 550 ml 1500 ml # Bowel Movements 1 1 Laboratory Tests Test 12/20/17 11:40 12/20/17 17:20 12/21/17 04:00 Fibrinogen 630 mg/dL (200-400) H Urine Color Pale yellow Urine Appearance Cloudy Urine pH 7 (4.5-8.0) Urine Specific [place] 1.010 (1.005-1.035) Urine Protein 1+ (NEGATIVE) H Urine Glucose (UA) Negative (NEGATIVE) Urine Ketones Negative (NEGATIVE) Urine Occult Blood 4+ (NEGATIVE) H Urine Nitrite Negative (NEGATIVE) Urine Bilirubin Negative (NEGATIVE) Urine Urobilinogen Normal MG/DL (0.0-1.0) Urine Leukocyte Esterase 3+ (NEGATIVE) H Urine RBC 20-30 /HPF (0 - 2) H Urine WBC Tntc /HPF (0 - 2) H Urine Squamous Epithelial Cells Few /LPF (NONE/OCC) Urine Bacteria Many /HPF (NONE) H White Blood Count 9.5 K/UL (4.8-10.8) Red Blood Count 2.84 M/UL (4.20-5.40) L Hemoglobin 8.2 G/DL (12.0-16.0) L Hematocrit 24.5 % (37.0-47.0) L Mean Corpuscular Volume 86 FL (80-99) Mean Corpuscular Hemoglobin 28.9 PG (27.0-31.0) Mean Corpuscular Hemoglobin Concent 33.5 G/DL (32.0-36.0) Red Cell Distribution Width 12.2 % (11.6-14.8) Platelet Count 314 K/UL (150-450) Mean Platelet Volume 6.1 FL (6.5-10.1) L Neutrophils (%) (Auto) 76.0 % (45.0-75.0) H Lymphocytes (%) (Auto) 12.5 % (20.0-45.0) L Monocytes (%) (Auto) 10.6 % (1.0-10.0) H Eosinophils (%) (Auto) 0.6 % (0.0-3.0) Basophils (%) (Auto) 0.4 % (0.0-2.0) Sodium Level 131 MMOL/L (136-145) L Potassium Level 2.4 MMOL/L (3.5-5.1) *L Chloride Level 96 MMOL/L (98-107) L Carbon Dioxide Level 29 MMOL/L (21-32) Anion Gap 6 mmol/L (5-15) Blood Urea Nitrogen 7 mg/dL (7-18) Creatinine 0.5 MG/DL (0.55-1.30) L Estimat Glomerular Filtration Rate mL/min (>60) Glucose Level 126 MG/DL (74-106) H Calcium Level 7.8 MG/DL (8.5-10.1) L Phosphorus Level 3.1 MG/DL (2.5-4.9) Magnesium Level 1.7 MG/DL (1.8-2.4) L Total Bilirubin 0.6 MG/DL (0.2-1.0) Aspartate Amino Transf (AST/SGOT) 20 U/L (15-37) Alanine Aminotransferase (ALT/SGPT) 20 U/L (12-78) Alkaline Phosphatase 181 U/L (46-116) H Total Protein 7.8 G/DL (6.4-8.2) Albumin 1.8 G/DL (3.4-5.0) L Globulin 6.0 g/dL Albumin/Globulin Ratio 0.3 (1.0-2.7) L Plan Problems: (1) Decubitus ulcer (2) Bilateral lower leg cellulitis (3) Sepsis Assessment & Plan: 72F with multiple medical comorbidities, chronic condition, chronic wounds, who presented with sepsis. leukocytosis, tachycardia, HD improved. wounds are very concerning. right heel wound is large with significant necrotic tissue, drainage, foul odor. down to muscle and likely bone. left ankle wound large, down to bone, foul smelling and with serosang drainage. very concerning for osteo and acute infection plain films pending could not obtain MRI because of vent. will order bone scan. given patients condition, chronic wounds, and medical state would really need to have discussion about goals of care. there wounds are large and will require extensive care. given how progressive they are there is considerations for right lower extremity amputation and even left lower extremity amputation. will await exam results. will follow with recs for now, skin protectant, packing with gauze and foam dressings. turn q2h. air mattress, keep off wounds, heel protectors. left lower extremity fx chronic. likely reason for ulceration. right heel wound chronic and not likely to have acute gas forming bacteria on exam and gas from chronic wound. extensive debridement possible but would leave large wounds that will be difficult to heal and care for. wound offer bilateral lower extremity amputation to healthy tissue to eliminate infected chronic wounds and need for wound care. will have to discus with colleagues (4) Ulcer of left ankle Assessment & Plan: severely angulated fracture deformity of the distal tibia and fibula. This is presumably chronic. There is a superiorly angulated fracture deformity of the distal tibia and fibula. This is angulated by nearly 90 degrees posteriorly and medially. There is bone bridging the distal tibia and fibula, indicating that this fracture is chronic. It is uncertain whether or not there is a fracture line between the proximal and distal fragments. There is probably severe deformity of the talus. The bones are profoundly osteoporotic. There may be some deformity of the calcaneus as well. (5) Ulcer of right heel and midfoot with necrosis of muscle Assessment & Plan: Possible gas within the soft tissues of the heel pad, raises concern for infection with gas-forming organism Indistinctness of the cortical surfaces of the calcaneal tuberosity, could be artifactual due to overlying shadows but could indicate osteomyelitis. (6) Decubitus ulcer, heel, right, unstageable (7) Decubitus ulcer of left ankle, stage 4 (8) Abdominal distension Donovan Lujan Dec 21, 2017 11:33
--- NOTE | 2017-12-21 12:47 | Consultation ---
History of Present Illness General Date patient seen: Dec 21, 2017 Chief Complaint: Wound Recheck/Suture Removal Reason for Consultation: bilateral lower extremity cellulitis / infected Present Illness HPI 72-year-old female presented after increased bilateral lower extremity drainage. the pt pw waxing and waning of consciousness. the pt has cognitive impairment. Allergies: Coded Allergies: PENICILLINS (Verified Allergy, Unknown, 12/19/17) Medication History Scheduled Aspirin* (Aspirin*), 325 MG GT DAILY, (Reported) Atorvastatin Calcium* (Atorvastatin Calcium*), 10 MG GT BEDTIME, (Reported) Cholecalciferol (Vitamin D3)* (Vitamin D*), 5,000 UNITS GT DAILY, (Reported) Dextran 70/Hypromellose (Artificial Tears Eye Drops*), 1 DROP BOTH EYES BID, ( Reported) Heparin Sod (Porcine) (Heparin Sodium*), 5,000 UNITS SUBQ DAILY, (Reported) Levetiracetam (Keppra), 5 ML GT TID, (Reported) Lisinopril (Lisinopril*), 20 MG GT DAILY, (Reported) Magnesium Hydroxide* (Milk Of Magnesia*), 30 ML ORAL DAILY, (Reported) Pantoprazole* (Protonix*), 40 MG GT DAILY, (Reported) Potassium Chloride (Potassium Chloride), 30 MEQ GT BID, (Reported) Scheduled PRN Acetaminophen* (Acetaminophen 325MG Tablet*), 650 MG GT Q4H PRN for For Pain, ( Reported) Tramadol Hcl* (Ultram*), 50 MG GT BIDAC PRN for For Pain, (Reported) Miscellaneous Medications Lactose-Reduced Food/Fiber (Jevity 1.2 Cuate Liquid), 1,500 ML PO, (Reported) Discontinued Medications Dextran 70/Hypromellose (Artificial Tears Eye Drops*), 1 DROP BOTH EYES, ( Reported) Discontinued Reason: Medication dose changed Heparin Sod (Porcine) (Heparin Sodium*), 5,000 UNITS SUBQ EVERY 12 HOURS, ( Reported) Discontinued Reason: Medication dose changed Levetiracetam (Keppra), 500 MG GT DAILY, (Reported) Discontinued Reason: Medication dose changed Potassium Chloride (Potassium Chloride), 40 MEQ GT, (Reported) Discontinued Reason: Medication dose changed Vitamin D (Vitamin D3), 5,000 UNITS GT DAILY, (Reported) Discontinued Reason: Medication dose changed Patient History Limited by: medical condition History Provided By: Medical Record, PMD Healthcare decision maker tyler moore Resuscitation status Full Code Advanced Directive on File No Review of Systems Psychiatric: Reports: prior hx, anxiety, depressed feelings Physical Exam General Appearance: no apparent distress, lethargic, confused, agitated Last 24 Hour Vital Signs Date Time Temp Pulse Resp B/P (MAP) Pulse Ox O2 Delivery O2 Flow Rate FiO2 12/21/17 11:33 97.7 76 20 141/63 (89) 100 97.7 12/21/17 10:30 75 18 30 12/21/17 08:40 64 13 30 12/21/17 08:00 Mechanical Ventilator Mechanical Ventilator Mechanical Ventilator 12/21/17 08:00 97.5 76 20 131/62 (85) 97 97.5 12/21/17 08:00 30 12/21/17 08:00 68 12/21/17 06:30 65 12 30 12/21/17 05:20 78 13 30 12/21/17 04:00 30 12/21/17 04:00 100.2 83 24 136/56 (82) 95 100.2 12/21/17 04:00 Mechanical Ventilator Mechanical Ventilator Mechanical Ventilator 12/21/17 03:35 86 12/21/17 03:06 78 13 30 12/21/17 01:25 81 13 30 12/21/17 00:00 45 12/21/17 00:00 Mechanical Ventilator Mechanical Ventilator Mechanical Ventilator 12/21/17 00:00 99.0 85 20 108/55 (72) 100 99.0 12/20/17 23:33 85 12/20/17 22:33 77 18 45 12/20/17 21:10 78 18 45 12/20/17 20:00 87 12/20/17 20:00 Mechanical Ventilator Mechanical Ventilator Mechanical Ventilator 12/20/17 20:00 45 12/20/17 20:00 98.9 86 22 129/64 (85) 100 98.9 12/20/17 19:07 79 18 45 12/20/17 17:00 92 18 134/56 (82) 99 12/20/17 16:31 73 16 45 12/20/17 16:00 Mechanical Ventilator Mechanical Ventilator Mechanical Ventilator 12/20/17 16:00 45 12/20/17 16:00 96 12/20/17 16:00 98.7 96 27 145/61 (89) 100 98.7 12/20/17 15:09 72 16 45 12/20/17 15:00 92 18 144/56 (85) 100 12/20/17 14:00 78 18 111/54 (73) 100 12/20/17 13:00 69 18 99/39 (59) 100 Intake and Output 12/20/17 12/21/17 19:00 07:00 Intake Total 1300.000 ml 1443.5 ml Output Total 550 ml 1500 ml Balance 750.000 ml -56.5 ml IV Total 1300.000 ml 1443.5 ml Output Urine Total 550 ml 1500 ml # Bowel Movements 1 1 Laboratory Tests Test 12/20/17 17:20 12/21/17 04:00 Urine Color Pale yellow Urine Appearance Cloudy Urine pH 7 (4.5-8.0) Urine Specific [place] 1.010 (1.005-1.035) Urine Protein 1+ (NEGATIVE) H Urine Glucose (UA) Negative (NEGATIVE) Urine Ketones Negative (NEGATIVE) Urine Occult Blood 4+ (NEGATIVE) H Urine Nitrite Negative (NEGATIVE) Urine Bilirubin Negative (NEGATIVE) Urine Urobilinogen Normal MG/DL (0.0-1.0) Urine Leukocyte Esterase 3+ (NEGATIVE) H Urine RBC 20-30 /HPF (0 - 2) H Urine WBC Tntc /HPF (0 - 2) H Urine Squamous Epithelial Cells Few /LPF (NONE/OCC) Urine Bacteria Many /HPF (NONE) H White Blood Count 9.5 K/UL (4.8-10.8) Red Blood Count 2.84 M/UL (4.20-5.40) L Hemoglobin 8.2 G/DL (12.0-16.0) L Hematocrit 24.5 % (37.0-47.0) L Mean Corpuscular Volume 86 FL (80-99) Mean Corpuscular Hemoglobin 28.9 PG (27.0-31.0) Mean Corpuscular Hemoglobin Concent 33.5 G/DL (32.0-36.0) Red Cell Distribution Width 12.2 % (11.6-14.8) Platelet Count 314 K/UL (150-450) Mean Platelet Volume 6.1 FL (6.5-10.1) L Neutrophils (%) (Auto) 76.0 % (45.0-75.0) H Lymphocytes (%) (Auto) 12.5 % (20.0-45.0) L Monocytes (%) (Auto) 10.6 % (1.0-10.0) H Eosinophils (%) (Auto) 0.6 % (0.0-3.0) Basophils (%) (Auto) 0.4 % (0.0-2.0) Sodium Level 131 MMOL/L (136-145) L Potassium Level 2.4 MMOL/L (3.5-5.1) *L Chloride Level 96 MMOL/L (98-107) L Carbon Dioxide Level 29 MMOL/L (21-32) Anion Gap 6 mmol/L (5-15) Blood Urea Nitrogen 7 mg/dL (7-18) Creatinine 0.5 MG/DL (0.55-1.30) L Estimat Glomerular Filtration Rate mL/min (>60) Glucose Level 126 MG/DL (74-106) H Calcium Level 7.8 MG/DL (8.5-10.1) L Phosphorus Level 3.1 MG/DL (2.5-4.9) Magnesium Level 1.7 MG/DL (1.8-2.4) L Total Bilirubin 0.6 MG/DL (0.2-1.0) Aspartate Amino Transf (AST/SGOT) 20 U/L (15-37) Alanine Aminotransferase (ALT/SGPT) 20 U/L (12-78) Alkaline Phosphatase 181 U/L (46-116) H Total Protein 7.8 G/DL (6.4-8.2) Albumin 1.8 G/DL (3.4-5.0) L Globulin 6.0 g/dL Albumin/Globulin Ratio 0.3 (1.0-2.7) L Height (Feet): 5 Height (Inches): 2.00 Weight (Pounds): 185 Medications Current Medications Medications (Trade) Dose Ordered Sig/[place]ster Route PRN Reason Start Time Stop Time Status Last Admin Dose Admin Acetaminophen (Tylenol) 650 mg Q6H PRN ORAL Mild Pain/Temp > 100.5 12/20/17 18:00 01/19/18 17:59 Chlorhexidine Gluconate (Merlyn-Hex 2%) 1 applic DAILY@2000 TOPIC 12/21/17 02:45 01/20/18 02:44 12/21/17 02:58 Clindamycin HCl/ Dextrose 50 ml @ 100 mls/hr Q8H IV 12/20/17 23:00 12/27/17 14:59 12/21/17 06:20 Gadobutrol (Gadavist) 7.5 mmol NOW PRN IV FOR RADIOLOGY USE 12/20/17 17:30 12/21/17 23:59 Heparin Sodium (Porcine) (Heparin 5000 units/ml) 5,000 units EVERY 12 HOURS SUBQ 12/20/17 21:00 01/19/18 08:59 12/21/17 09:23 Meropenem 1 gm/ Sodium Chloride 55 ml @ 110 mls/hr Q12HR IVPB 12/20/17 21:00 12/25/17 20:59 12/21/17 09:19 Pantoprazole (Protonix) 40 mg DAILY IVP 12/21/17 09:00 01/19/18 08:59 12/21/17 09:18 Potassium Chloride 100 ml @ 50 mls/hr Q2H IVPB 12/21/17 08:00 12/21/17 13:59 12/21/17 12:25 Vancomycin HCl (Vanco rx to dose) 1 ea DAILY PRN MISC Per rx protocol 12/20/17 18:00 01/19/18 17:59 Vancomycin HCl/ Dextrose 250 ml @ 166.667 mls/hr Q24H IVPB 12/21/17 18:00 12/26/17 17:59 Assessment/Plan Assessment/Plan encephalopathy Dementia seroquel prn Bob Bauer MD Dec 21, 2017 12:47
--- NOTE | 2017-12-21 13:01 | Consultation ---
History of Present Illness General Date patient seen: Dec 21, 2017 Chief Complaint: Wound Recheck/Suture Removal Reason for Consultation: bilateral lower extremity cellulitis / infected Present Illness HPI 72-year-old female, history of lower extremity cellulitis, osteomyelitis; chronic respiratory failure, status post trach and vent; dementia; dysphagia, status post G-tube; GERD; peptic ulcer disease; chronic nonhealing wounds. the pt has waxing and waning of conciousness Allergies: Coded Allergies: PENICILLINS (Verified Allergy, Unknown, 12/19/17) Medication History Scheduled Aspirin* (Aspirin*), 325 MG GT DAILY, (Reported) Atorvastatin Calcium* (Atorvastatin Calcium*), 10 MG GT BEDTIME, (Reported) Cholecalciferol (Vitamin D3)* (Vitamin D*), 5,000 UNITS GT DAILY, (Reported) Dextran 70/Hypromellose (Artificial Tears Eye Drops*), 1 DROP BOTH EYES BID, ( Reported) Heparin Sod (Porcine) (Heparin Sodium*), 5,000 UNITS SUBQ DAILY, (Reported) Levetiracetam (Keppra), 5 ML GT TID, (Reported) Lisinopril (Lisinopril*), 20 MG GT DAILY, (Reported) Magnesium Hydroxide* (Milk Of Magnesia*), 30 ML ORAL DAILY, (Reported) Pantoprazole* (Protonix*), 40 MG GT DAILY, (Reported) Potassium Chloride (Potassium Chloride), 30 MEQ GT BID, (Reported) Scheduled PRN Acetaminophen* (Acetaminophen 325MG Tablet*), 650 MG GT Q4H PRN for For Pain, ( Reported) Tramadol Hcl* (Ultram*), 50 MG GT BIDAC PRN for For Pain, (Reported) Miscellaneous Medications Lactose-Reduced Food/Fiber (Jevity 1.2 Cuate Liquid), 1,500 ML PO, (Reported) Discontinued Medications Dextran 70/Hypromellose (Artificial Tears Eye Drops*), 1 DROP BOTH EYES, ( Reported) Discontinued Reason: Medication dose changed Heparin Sod (Porcine) (Heparin Sodium*), 5,000 UNITS SUBQ EVERY 12 HOURS, ( Reported) Discontinued Reason: Medication dose changed Levetiracetam (Keppra), 500 MG GT DAILY, (Reported) Discontinued Reason: Medication dose changed Potassium Chloride (Potassium Chloride), 40 MEQ GT, (Reported) Discontinued Reason: Medication dose changed Vitamin D (Vitamin D3), 5,000 UNITS GT DAILY, (Reported) Discontinued Reason: Medication dose changed Patient History Healthcare decision maker tyler moore Resuscitation status Full Code Advanced Directive on File No Physical Exam Last 24 Hour Vital Signs Date Time Temp Pulse Resp B/P (MAP) Pulse Ox O2 Delivery O2 Flow Rate FiO2 12/21/17 11:33 97.7 76 20 141/63 (89) 100 97.7 12/21/17 10:30 75 18 30 12/21/17 08:40 64 13 30 12/21/17 08:00 Mechanical Ventilator Mechanical Ventilator Mechanical Ventilator 12/21/17 08:00 97.5 76 20 131/62 (85) 97 97.5 12/21/17 08:00 30 12/21/17 08:00 68 12/21/17 06:30 65 12 30 12/21/17 05:20 78 13 30 12/21/17 04:00 30 12/21/17 04:00 100.2 83 24 136/56 (82) 95 100.2 12/21/17 04:00 Mechanical Ventilator Mechanical Ventilator Mechanical Ventilator 12/21/17 03:35 86 12/21/17 03:06 78 13 30 12/21/17 01:25 81 13 30 12/21/17 00:00 45 12/21/17 00:00 Mechanical Ventilator Mechanical Ventilator Mechanical Ventilator 12/21/17 00:00 99.0 85 20 108/55 (72) 100 99.0 12/20/17 23:33 85 12/20/17 22:33 77 18 45 12/20/17 21:10 78 18 45 12/20/17 20:00 87 12/20/17 20:00 Mechanical Ventilator Mechanical Ventilator Mechanical Ventilator 12/20/17 20:00 45 12/20/17 20:00 98.9 86 22 129/64 (85) 100 98.9 12/20/17 19:07 79 18 45 12/20/17 17:00 92 18 134/56 (82) 99 12/20/17 16:31 73 16 45 12/20/17 16:00 Mechanical Ventilator Mechanical Ventilator Mechanical Ventilator 12/20/17 16:00 45 12/20/17 16:00 96 12/20/17 16:00 98.7 96 27 145/61 (89) 100 98.7 12/20/17 15:09 72 16 45 12/20/17 15:00 92 18 144/56 (85) 100 12/20/17 14:00 78 18 111/54 (73) 100 12/20/17 13:00 69 18 99/39 (59) 100 Intake and Output 12/20/17 12/21/17 19:00 07:00 Intake Total 1300.000 ml 1443.5 ml Output Total 550 ml 1500 ml Balance 750.000 ml -56.5 ml IV Total 1300.000 ml 1443.5 ml Output Urine Total 550 ml 1500 ml # Bowel Movements 1 1 Laboratory Tests Test 12/20/17 17:20 12/21/17 04:00 Urine Color Pale yellow Urine Appearance Cloudy Urine pH 7 (4.5-8.0) Urine Specific [place] 1.010 (1.005-1.035) Urine Protein 1+ (NEGATIVE) H Urine Glucose (UA) Negative (NEGATIVE) Urine Ketones Negative (NEGATIVE) Urine Occult Blood 4+ (NEGATIVE) H Urine Nitrite Negative (NEGATIVE) Urine Bilirubin Negative (NEGATIVE) Urine Urobilinogen Normal MG/DL (0.0-1.0) Urine Leukocyte Esterase 3+ (NEGATIVE) H Urine RBC 20-30 /HPF (0 - 2) H Urine WBC Tntc /HPF (0 - 2) H Urine Squamous Epithelial Cells Few /LPF (NONE/OCC) Urine Bacteria Many /HPF (NONE) H White Blood Count 9.5 K/UL (4.8-10.8) Red Blood Count 2.84 M/UL (4.20-5.40) L Hemoglobin 8.2 G/DL (12.0-16.0) L Hematocrit 24.5 % (37.0-47.0) L Mean Corpuscular Volume 86 FL (80-99) Mean Corpuscular Hemoglobin 28.9 PG (27.0-31.0) Mean Corpuscular Hemoglobin Concent 33.5 G/DL (32.0-36.0) Red Cell Distribution Width 12.2 % (11.6-14.8) Platelet Count 314 K/UL (150-450) Mean Platelet Volume 6.1 FL (6.5-10.1) L Neutrophils (%) (Auto) 76.0 % (45.0-75.0) H Lymphocytes (%) (Auto) 12.5 % (20.0-45.0) L Monocytes (%) (Auto) 10.6 % (1.0-10.0) H Eosinophils (%) (Auto) 0.6 % (0.0-3.0) Basophils (%) (Auto) 0.4 % (0.0-2.0) Sodium Level 131 MMOL/L (136-145) L Potassium Level 2.4 MMOL/L (3.5-5.1) *L Chloride Level 96 MMOL/L (98-107) L Carbon Dioxide Level 29 MMOL/L (21-32) Anion Gap 6 mmol/L (5-15) Blood Urea Nitrogen 7 mg/dL (7-18) Creatinine 0.5 MG/DL (0.55-1.30) L Estimat Glomerular Filtration Rate mL/min (>60) Glucose Level 126 MG/DL (74-106) H Calcium Level 7.8 MG/DL (8.5-10.1) L Phosphorus Level 3.1 MG/DL (2.5-4.9) Magnesium Level 1.7 MG/DL (1.8-2.4) L Total Bilirubin 0.6 MG/DL (0.2-1.0) Aspartate Amino Transf (AST/SGOT) 20 U/L (15-37) Alanine Aminotransferase (ALT/SGPT) 20 U/L (12-78) Alkaline Phosphatase 181 U/L (46-116) H Total Protein 7.8 G/DL (6.4-8.2) Albumin 1.8 G/DL (3.4-5.0) L Globulin 6.0 g/dL Albumin/Globulin Ratio 0.3 (1.0-2.7) L Height (Feet): 5 Height (Inches): 2.00 Weight (Pounds): 185 Medications Current Medications Medications (Trade) Dose Ordered Sig/[place] Route PRN Reason Start Time Stop Time Status Last Admin Dose Admin Acetaminophen (Tylenol) 650 mg Q6H PRN ORAL Mild Pain/Temp > 100.5 12/20/17 18:00 01/19/18 17:59 Chlorhexidine Gluconate (Merlyn-Hex 2%) 1 applic DAILY@2000 TOPIC 12/21/17 02:45 01/20/18 02:44 12/21/17 02:58 Clindamycin HCl/ Dextrose 50 ml @ 100 mls/hr Q8H IV 12/20/17 23:00 12/27/17 14:59 12/21/17 06:20 Gadobutrol (Gadavist) 7.5 mmol NOW PRN IV FOR RADIOLOGY USE 12/20/17 17:30 12/21/17 23:59 Heparin Sodium (Porcine) (Heparin 5000 units/ml) 5,000 units EVERY 12 HOURS SUBQ 12/20/17 21:00 01/19/18 08:59 12/21/17 09:23 Meropenem 1 gm/ Sodium Chloride 55 ml @ 110 mls/hr Q12HR IVPB 12/20/17 21:00 12/25/17 20:59 12/21/17 09:19 Pantoprazole (Protonix) 40 mg DAILY IVP 12/21/17 09:00 01/19/18 08:59 12/21/17 09:18 Potassium Chloride 100 ml @ 50 mls/hr Q2H IVPB 12/21/17 08:00 12/21/17 13:59 12/21/17 12:25 Vancomycin HCl (Vanco rx to dose) 1 ea DAILY PRN MISC Per rx protocol 12/20/17 18:00 01/19/18 17:59 Vancomycin HCl/ Dextrose 250 ml @ 166.667 mls/hr Q24H IVPB 12/21/17 18:00 12/26/17 17:59 Bob Bauer MD Dec 21, 2017 13:01
--- NOTE | 2017-12-21 13:02 | General Progress Note ---
Assessment/Plan Status: unchanged Assessment/Plan 1. Anemia due to underlying chronic disease. --> Continue to closely monitor for improvement. --> Anemia workup has been reviewed. Will trend CBC daily. --> Hgb goal >7 2. Leukocytosis due to underlying septic shock, has been seen by ID Service. The patient with urinary tract infection. --> Pt on abx --> Monitor WBC for improvement. 3. Septic shock due to bilateral lower extremity wound. --> She is getting vancomycin and Levaquin. 4. Abdominal distention, rule out infection. 5. Chronic respiratory failure, status post trach. 6. Dysphagia, status post gastrostomy tube. 7. Gastroesophageal reflux disease. 8. Peripheral vascular disease. 9. Dementia. 10. Seizure disorder. 11. [facility] facility resident. 12. Appreciate recommendations by consultants. The time the note was entered does not necessarily correspond to the time the patient was seen. Subjective Date patient seen: Dec 21, 2017 ROS Limited/Unobtainable: Yes Allergies: Coded Allergies: PENICILLINS (Verified Allergy, Unknown, 12/19/17) All Systems: reviewed and negative except above Subjective Pt obtunded. No acute events. WBC trending downwards. CXR today shows no new changes. Objective Last 24 Hour Vital Signs Date Time Temp Pulse Resp B/P (MAP) Pulse Ox O2 Delivery O2 Flow Rate FiO2 12/21/17 11:33 97.7 76 20 141/63 (89) 100 97.7 12/21/17 10:30 75 18 30 12/21/17 08:40 64 13 30 12/21/17 08:00 Mechanical Ventilator Mechanical Ventilator Mechanical Ventilator 12/21/17 08:00 97.5 76 20 131/62 (85) 97 97.5 12/21/17 08:00 30 12/21/17 08:00 68 12/21/17 06:30 65 12 30 12/21/17 05:20 78 13 30 12/21/17 04:00 30 12/21/17 04:00 100.2 83 24 136/56 (82) 95 100.2 12/21/17 04:00 Mechanical Ventilator Mechanical Ventilator Mechanical Ventilator 12/21/17 03:35 86 12/21/17 03:06 78 13 30 12/21/17 01:25 81 13 30 12/21/17 00:00 45 12/21/17 00:00 Mechanical Ventilator Mechanical Ventilator Mechanical Ventilator 12/21/17 00:00 99.0 85 20 108/55 (72) 100 99.0 12/20/17 23:33 85 12/20/17 22:33 77 18 45 12/20/17 21:10 78 18 45 12/20/17 20:00 87 12/20/17 20:00 Mechanical Ventilator Mechanical Ventilator Mechanical Ventilator 12/20/17 20:00 45 12/20/17 20:00 98.9 86 22 129/64 (85) 100 98.9 12/20/17 19:07 79 18 45 12/20/17 17:00 92 18 134/56 (82) 99 12/20/17 16:31 73 16 45 12/20/17 16:00 Mechanical Ventilator Mechanical Ventilator Mechanical Ventilator 12/20/17 16:00 45 12/20/17 16:00 96 12/20/17 16:00 98.7 96 27 145/61 (89) 100 98.7 12/20/17 15:09 72 16 45 12/20/17 15:00 92 18 144/56 (85) 100 12/20/17 14:00 78 18 111/54 (73) 100 12/20/17 13:00 69 18 99/39 (59) 100 Intake and Output 12/20/17 12/21/17 19:00 07:00 Intake Total 1300.000 ml 1443.5 ml Output Total 550 ml 1500 ml Balance 750.000 ml -56.5 ml IV Total 1300.000 ml 1443.5 ml Output Urine Total 550 ml 1500 ml # Bowel Movements 1 1 Laboratory Tests 12/20/17 17:20: Urine Color Pale yellow, Urine Appearance Cloudy, Urine pH 7, Urine Specific [place] 1.010, Urine Protein 1+H, Urine Glucose (UA) Negative, Urine Ketones Negative, Urine Occult Blood 4+H, Urine Nitrite Negative, Urine Bilirubin Negative, Urine Urobilinogen Normal, Urine Leukocyte Esterase 3+H, Urine RBC 20- 30H, Urine WBC TntcH, Urine Squamous Epithelial Cells Few, Urine Bacteria ManyH 12/21/17 04:00: White Blood Count 9.5, Red Blood Count 2.84L, Hemoglobin 8.2L, Hematocrit 24.5L , Mean Corpuscular Volume 86, Mean Corpuscular Hemoglobin 28.9, Mean Corpuscular Hemoglobin Concent 33.5, Red Cell Distribution Width 12.2, Platelet Count 314, Mean Platelet Volume 6.1L, Neutrophils (%) (Auto) 76.0H, Lymphocytes (%) (Auto) 12.5L, Monocytes (%) (Auto) 10.6H, Eosinophils (%) (Auto) 0.6, Basophils (%) (Auto) 0.4, Sodium Level 131L, Potassium Level 2.4*L, Chloride Level 96L, Carbon Dioxide Level 29, Anion Gap 6, Blood Urea Nitrogen 7, Creatinine 0.5L, Estimat Glomerular Filtration Rate , Glucose Level 126H, Calcium Level 7.8L, Phosphorus Level 3.1, Magnesium Level 1.7L, Total Bilirubin 0.6, Aspartate Amino Transf (AST/SGOT) 20, Alanine Aminotransferase (ALT/SGPT) 20, Alkaline Phosphatase 181H, Total Protein 7.8, Albumin 1.8L, Globulin 6.0, Albumin/Globulin Ratio 0.3L Height (Feet): 5 Height (Inches): 2.00 Weight (Pounds): 185 General Appearance: no apparent distress, lethargic EENT: PERRL/EOMI Neck: normal alignment Cardiovascular: normal peripheral pulses Respiratory/Chest: no respiratory distress Abdomen: soft Phoenix Gonzalez MD Dec 21, 2017 13:02
--- NOTE | 2017-12-21 13:04 | Infectious Diseases Prog Note ---
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 Persistent unchanged bilateral basilar atelectatic changes. Other stable findings as described - -R foot Xray: Possible gas within the soft tissues of the heel pad, raises concern for infection with gas-forming organism. Indistinctness of the cortical surfaces of the calcaneal tuberosity, could be artifactual due to overlying shadows but could indicate osteomyelitis. Consider MRI for better characterization if clinically indicated. Osteoporosis. Deformities, as described. No acute bony trauma. Osteoporosis -u/a wbc 15-20, nit neg, leuk +3, sq cell mod; repeat u/a wbc tntc, nit neg, leuk +3, sq cells few; ucx >100K GNR -Bx 12/19 2/4 Group A Strep; 12/20 Bcx p -R foot wound cx: S. aureus, GNB Fever/ leukocytosis; improving L ankle wound- no signs of infection -L ankle Xray: Severely angulated fracture deformity of the distal tibia and fibula, as described. This is presumably chronic. Degree of bony union uncertain based on available images, however. Consider CT for further characterization if this is of clinical concern. -wound cx: GAS, S. aureus Abd distention -KUB: Limited. No definite acute process hx of LE cellulitis/OM chronic resp failure s/p trach/vent dependent Dementia Dysphagia s/p GT GERD PUD chronic non healing wounds PVD Dementia seizure disorder SNF resident Plan: -Continue IV Vancomycn #3 pending S. aureus sensi -Continue IV MEropenem #3 pending urine culture and for necrotizing infection -Continue IV Clindamycin #2 for necrotizing infection and bacteremia due to GAS -12/19 SP LEvaquin x1 -f/u Repeat Bcx x2 -f/u cx -Monitor CBC/CMP, temperatures -trach/peg care -ICU care -aspiration precautions -wound care per hosp protocol -Sx f/u; will need surgical intervention pending goals of care -MRI unable to be done as patient on vent Thank you for this consultation. Will continue to follow along with you. Discussed with RN and Dr Lujan. Subjective Allergies: Coded Allergies: PENICILLINS (Verified Allergy, Unknown, 12/19/17) Subjective Tm 100.2 leukocytosis rseovled Bacteremic with GAS, repeat Bcx p Objective Vital Signs Last 24 Hour Vital Signs Date Time Temp Pulse Resp B/P (MAP) Pulse Ox O2 Delivery O2 Flow Rate FiO2 12/21/17 11:33 97.7 76 20 141/63 (89) 100 97.7 12/21/17 10:30 75 18 30 12/21/17 08:40 64 13 30 12/21/17 08:00 Mechanical Ventilator Mechanical Ventilator Mechanical Ventilator 12/21/17 08:00 97.5 76 20 131/62 (85) 97 97.5 12/21/17 08:00 30 12/21/17 08:00 68 12/21/17 06:30 65 12 30 12/21/17 05:20 78 13 30 12/21/17 04:00 30 12/21/17 04:00 100.2 83 24 136/56 (82) 95 100.2 12/21/17 04:00 Mechanical Ventilator Mechanical Ventilator Mechanical Ventilator 12/21/17 03:35 86 12/21/17 03:06 78 13 30 12/21/17 01:25 81 13 30 12/21/17 00:00 45 12/21/17 00:00 Mechanical Ventilator Mechanical Ventilator Mechanical Ventilator 12/21/17 00:00 99.0 85 20 108/55 (72) 100 99.0 12/20/17 23:33 85 12/20/17 22:33 77 18 45 12/20/17 21:10 78 18 45 12/20/17 20:00 87 12/20/17 20:00 Mechanical Ventilator Mechanical Ventilator Mechanical Ventilator 12/20/17 20:00 45 12/20/17 20:00 98.9 86 22 129/64 (85) 100 98.9 12/20/17 19:07 79 18 45 12/20/17 17:00 92 18 134/56 (82) 99 12/20/17 16:31 73 16 45 12/20/17 16:00 Mechanical Ventilator Mechanical Ventilator Mechanical Ventilator 12/20/17 16:00 45 12/20/17 16:00 96 12/20/17 16:00 98.7 96 27 145/61 (89) 100 98.7 12/20/17 15:09 72 16 45 12/20/17 15:00 92 18 144/56 (85) 100 12/20/17 14:00 78 18 111/54 (73) 100 12/20/17 13:00 69 18 99/39 (59) 100 Height (Feet): 5 Height (Inches): 2.00 Weight (Pounds): 185 Objective General Appearance: normal inspection, obese, Chronically Ill, Stupor Head: atraumatic Eyes: bilateral eye PERRL ENT: uvula midline, moist mucus membranes Neck: supple, no bony tend, tracheotomy Respiratory: normal inspection, no respiratory distress, no retraction, no wheezing Cardiovascular tachycardia, other Gastrointestinal: non tender Genitourinary: normal inspection Musculoskeletal: back normal, decreased range of motion - contractures Neurologic: aphasia, motor weakness Psychiatric: depressed affect Skin: other - deep ulcer with surrounding erythema to right heel, left lateral malleolus large ulcer without eryythema Microbiology Date/Time Source Procedure Growth Status 12/19/17 17:00 Blood Blood Culture - Preliminary Streptococcus Pyogenes Grp A Resulted 12/19/17 16:45 Blood Blood Culture - Preliminary Streptococcus Pyogenes Grp A Resulted 12/19/17 17:18 Other Gram Stain - Final Resulted 12/19/17 17:18 Wound Culture - Preliminary Staphylococcus Aureus Streptococcus Pyogenes Grp A Resulted 12/19/17 17:10 Other Gram Stain - Final Resulted 12/19/17 17:10 Wound Culture - Preliminary Staphylococcus Aureus Gram Negative Bacillus 1 Resulted 12/19/17 17:30 Urine,Clean Catch Urine Culture - Preliminary Gram Negative Bacillus 1 Resulted 12/20/17 09:00 Rectum - Preliminary Resulted 12/19/17 17:40 Rectum Received Laboratory Tests Test 12/20/17 17:20 12/21/17 04:00 Urine Color Pale yellow Urine Appearance Cloudy Urine pH 7 (4.5-8.0) Urine Specific Murray 1.010 (1.005-1.035) Urine Protein 1+ (NEGATIVE) H Urine Glucose (UA) Negative (NEGATIVE) Urine Ketones Negative (NEGATIVE) Urine Occult Blood 4+ (NEGATIVE) H Urine Nitrite Negative (NEGATIVE) Urine Bilirubin Negative (NEGATIVE) Urine Urobilinogen Normal MG/DL (0.0-1.0) Urine Leukocyte Esterase 3+ (NEGATIVE) H Urine RBC 20-30 /HPF (0 - 2) H Urine WBC Tntc /HPF (0 - 2) H Urine Squamous Epithelial Cells Few /LPF (NONE/OCC) Urine Bacteria Many /HPF (NONE) H White Blood Count 9.5 K/UL (4.8-10.8) Red Blood Count 2.84 M/UL (4.20-5.40) L Hemoglobin 8.2 G/DL (12.0-16.0) L Hematocrit 24.5 % (37.0-47.0) L Mean Corpuscular Volume 86 FL (80-99) Mean Corpuscular Hemoglobin 28.9 PG (27.0-31.0) Mean Corpuscular Hemoglobin Concent 33.5 G/DL (32.0-36.0) Red Cell Distribution Width 12.2 % (11.6-14.8) Platelet Count 314 K/UL (150-450) Mean Platelet Volume 6.1 FL (6.5-10.1) L Neutrophils (%) (Auto) 76.0 % (45.0-75.0) H Lymphocytes (%) (Auto) 12.5 % (20.0-45.0) L Monocytes (%) (Auto) 10.6 % (1.0-10.0) H Eosinophils (%) (Auto) 0.6 % (0.0-3.0) Basophils (%) (Auto) 0.4 % (0.0-2.0) Sodium Level 131 MMOL/L (136-145) L Potassium Level 2.4 MMOL/L (3.5-5.1) *L Chloride Level 96 MMOL/L (98-107) L Carbon Dioxide Level 29 MMOL/L (21-32) Anion Gap 6 mmol/L (5-15) Blood Urea Nitrogen 7 mg/dL (7-18) Creatinine 0.5 MG/DL (0.55-1.30) L Estimat Glomerular Filtration Rate mL/min (>60) Glucose Level 126 MG/DL (74-106) H Calcium Level 7.8 MG/DL (8.5-10.1) L Phosphorus Level 3.1 MG/DL (2.5-4.9) Magnesium Level 1.7 MG/DL (1.8-2.4) L Total Bilirubin 0.6 MG/DL (0.2-1.0) Aspartate Amino Transf (AST/SGOT) 20 U/L (15-37) Alanine Aminotransferase (ALT/SGPT) 20 U/L (12-78) Alkaline Phosphatase 181 U/L (46-116) H Total Protein 7.8 G/DL (6.4-8.2) Albumin 1.8 G/DL (3.4-5.0) L Globulin 6.0 g/dL Albumin/Globulin Ratio 0.3 (1.0-2.7) L Current Medications Medications (Trade) Dose Ordered Sig/Chester Route PRN Reason Start Time Stop Time Status Last Admin Dose Admin Acetaminophen (Tylenol) 650 mg Q6H PRN ORAL Mild Pain/Temp > 100.5 12/20/17 18:00 01/19/18 17:59 Chlorhexidine Gluconate (Merlyn-Hex 2%) 1 applic DAILY@2000 TOPIC 12/21/17 02:45 01/20/18 02:44 12/21/17 02:58 Clindamycin HCl/ Dextrose 50 ml @ 100 mls/hr Q8H IV 12/20/17 23:00 12/27/17 14:59 12/21/17 06:20 Gadobutrol (Gadavist) 7.5 mmol NOW PRN IV FOR RADIOLOGY USE 12/20/17 17:30 12/21/17 23:59 Heparin Sodium (Porcine) (Heparin 5000 units/ml) 5,000 units EVERY 12 HOURS SUBQ 12/20/17 21:00 01/19/18 08:59 12/21/17 09:23 Meropenem 1 gm/ Sodium Chloride 55 ml @ 110 mls/hr Q12HR IVPB 12/20/17 21:00 12/25/17 20:59 12/21/17 09:19 Pantoprazole (Protonix) 40 mg DAILY IVP 12/21/17 09:00 01/19/18 08:59 12/21/17 09:18 Potassium Chloride 100 ml @ 50 mls/hr Q2H IVPB 12/21/17 08:00 12/21/17 13:59 12/21/17 12:25 Quetiapine Fumarate (SEROquel) 12.5 mg EVERY 4 HOURS PRN ORAL agitation 12/21/17 13:00 01/20/18 12:59 UNV Vancomycin HCl (Vanco rx to dose) 1 ea DAILY PRN MISC Per rx protocol 12/20/17 18:00 01/19/18 17:59 Vancomycin HCl/ Dextrose 250 ml @ 166.667 mls/hr Q24H IVPB 12/21/17 18:00 12/26/17 17:59 Ximena Grande M.D. Dec 21, 2017 13:04
[2017-12-21 16:00] VITALS: BP 135/68
[2017-12-21 20:00] VITALS: BP 131/63
[2017-12-21] MEDS: Vancomycin 1250mg/D5W 250ml 250 ML IVPB SCH (20:32)
[2017-12-21] MEDS ORDERED: Potassium Chloride 10 MEQ in NS 110 ML IV ONE ×2 (21:45→22:45)
[2017-12-22] VITALS: BP 133/53
[2017-12-22] MEDS ORDERED: Potassium Chloride 10 MEQ in NS 110 ML IV ONE (01:00)
[2017-12-22 04:00] VITALS: BP 143/60
[2017-12-22] MEDS: Clindamycin 900mg 50 ML IV SCH ×3 (06:16→23:17)
[2017-12-22 07:25] LABS: ANION GAP 10 mmol/L (5-15); BLOOD UREA NITROGEN 8 mg/dL (7-18); CALCIUM 8.1 MG/DL (8.5-10.1); CARBON DIOXIDE 31 MMOL/L (21-32); CHLORIDE 92 MMOL/L (98-107); CREATININE 0.5 MG/DL (0.55-1.30); POTASSIUM 2.9 MMOL/L (3.5-5.1); SODIUM 132 MMOL/L (136-145)
[2017-12-22 08:00] VITALS: BP 141/53
--- NOTE | 2017-12-22 08:29 | Nephrology Progress Note ---
Assessment/Plan Assessment/Plan A/P 1.Hyponatremia- Na improved over 2 days 123---124----131---132 - Keprra level pending - On NS with KCL now 2. Resp FL- trached/vent 3. Sepsis- per ID mgmt 4. Hypok+ IVFs with KCL and being replaced Subjective Date patient seen: Dec 22, 2017 Time patient seen: 08:28 ROS Limited/Unobtainable: Yes Allergies: Coded Allergies: PENICILLINS (Verified Allergy, Unknown, 12/19/17) Subjective Patient trached/vent nonverbal. No overt distress Objective Last 24 Hour Vital Signs Date Time Temp Pulse Resp B/P (MAP) Pulse Ox O2 Delivery O2 Flow Rate FiO2 12/22/17 06:47 76 16 30 12/22/17 05:01 75 16 30 12/22/17 04:00 30 12/22/17 04:00 97.5 78 20 143/60 (87) 99 97.5 12/22/17 04:00 83 12/22/17 04:00 Mechanical Ventilator Mechanical Ventilator Mechanical Ventilator 12/22/17 02:58 71 18 30 12/22/17 00:51 67 15 30 12/22/17 00:00 Mechanical Ventilator Mechanical Ventilator Mechanical Ventilator 12/22/17 00:00 72 12/22/17 00:00 30 12/22/17 00:00 97.7 75 18 133/53 (79) 99 97.7 12/21/17 23:01 68 11 30 12/21/17 20:59 69 13 30 12/21/17 20:00 98.3 77 12 131/63 (85) 99 98.3 12/21/17 20:00 62 12/21/17 20:00 Mechanical Ventilator Mechanical Ventilator Mechanical Ventilator 12/21/17 20:00 30 12/21/17 18:55 78 20 30 12/21/17 17:20 65 14 30 12/21/17 16:00 78 12/21/17 16:00 30 12/21/17 16:00 98.6 71 18 135/68 (90) 100 98.6 12/21/17 16:00 Mechanical Ventilator Mechanical Ventilator Mechanical Ventilator 12/21/17 15:01 64 13 30 12/21/17 13:10 73 18 30 12/21/17 12:00 30 12/21/17 12:00 74 12/21/17 12:00 Mechanical Ventilator Mechanical Ventilator Mechanical Ventilator 12/21/17 11:33 97.7 76 20 141/63 (89) 100 97.7 12/21/17 10:30 75 18 30 12/21/17 08:40 64 13 30 Intake and Output 12/21/17 12/22/17 19:00 07:00 Intake Total 221.667 ml Output Total 1275 ml 1750 ml Balance -1275 ml -1528.333 ml IV Total 221.667 ml Output Urine Total 1275 ml 1750 ml # Bowel Movements 1 2 Laboratory Tests 12/21/17 14:10: Arterial Blood pH 7.495H, Arterial Blood Partial Pressure CO2 37.6, Arterial Blood Partial Pressure O2 83.0, Arterial Blood HCO3 28.3H, Arterial Blood Oxygen Saturation 95.9, Arterial Blood Base Excess 4.7, Dean Test Positive 12/21/17 19:00: Potassium Level 2.4*L 12/22/17 04:15: Potassium Level 2.9L, Sodium Level 132L, Chloride Level 92L, Carbon Dioxide Level 31, Anion Gap 10, Blood Urea Nitrogen 8, Creatinine 0.5L, Estimat Glomerular Filtration Rate , Glucose Level 131H, Calcium Level 8.1L Height (Feet): 5 Height (Inches): 2.00 Weight (Pounds): 183 General Appearance: WD/WN, no apparent distress EENT: PERRL/EOMI Neck: non-tender, normal alignment, supple Cardiovascular: normal peripheral pulses, normal rate Respiratory/Chest: chest wall non-tender, lungs clear Abdomen: normal bowel sounds, non tender, soft Edema: no edema noted Arm (L), no edema noted Arm (R), no edema noted Leg (L), no edema noted Leg (R), no edema noted Pedal (L), no edema noted Pedal (R), no edema noted Generalized Fahad Dacosta M.D. Dec 22, 2017 08:29
[2017-12-22] MEDS: Pantoprazole Inj IVP SCH (09:05)
[2017-12-22] MEDS: Heparin 5000 units/ml inj SUBQ SCH ×2 (09:08→20:16)
[2017-12-22] MEDS: NS w/KCl 40mEq 1,000 ML IV SCH ×2 (10:52→23:17)
[2017-12-22] MEDS: Meropenem 1 GM in NS 55 ML IVPB SCH (10:52)
--- NOTE | 2017-12-22 10:55 | General Progress Note ---
Assessment/Plan Status: stable Assessment/Plan 1. Anemia due to underlying chronic disease. --> Continue to closely monitor for improvement. --> Anemia workup has been reviewed. Will trend CBC daily. --> Hgb goal >7 2. Leukocytosis due to underlying septic shock, has been seen by ID Service. The patient with urinary tract infection. --> Pt on abx --> Monitor WBC for improvement. 3. Septic shock due to bilateral lower extremity wound. --> She is getting vancomycin and Levaquin. 4. Abdominal distention, rule out infection. 5. Chronic respiratory failure, status post trach. 6. Dysphagia, status post gastrostomy tube. 7. Gastroesophageal reflux disease. 8. Peripheral vascular disease. 9. Dementia. 10. Seizure disorder. 11. intermediate facility resident. 12. Appreciate recommendations by consultants. The time the note was entered does not necessarily correspond to the time the patient was seen. Subjective Date patient seen: Dec 22, 2017 ROS Limited/Unobtainable: Yes Hematologic/Lymphatic: Reports: anemia Allergies: Coded Allergies: PENICILLINS (Verified Allergy, Unknown, 12/19/17) All Systems: reviewed and negative except above Subjective Pt obtunded. No acute events. WBC normalized. Objective Last 24 Hour Vital Signs Date Time Temp Pulse Resp B/P (MAP) Pulse Ox O2 Delivery O2 Flow Rate FiO2 12/22/17 10:48 75 18 30 12/22/17 09:34 75 16 30 12/22/17 08:00 77 12/22/17 06:47 76 16 30 12/22/17 05:01 75 16 30 12/22/17 04:00 30 12/22/17 04:00 97.5 78 20 143/60 (87) 99 97.5 12/22/17 04:00 83 12/22/17 04:00 Mechanical Ventilator Mechanical Ventilator Mechanical Ventilator 12/22/17 02:58 71 18 30 12/22/17 00:51 67 15 30 12/22/17 00:00 Mechanical Ventilator Mechanical Ventilator Mechanical Ventilator 12/22/17 00:00 72 12/22/17 00:00 30 12/22/17 00:00 97.7 75 18 133/53 (79) 99 97.7 12/21/17 23:01 68 11 30 12/21/17 20:59 69 13 30 12/21/17 20:00 98.3 77 12 131/63 (85) 99 98.3 12/21/17 20:00 62 12/21/17 20:00 Mechanical Ventilator Mechanical Ventilator Mechanical Ventilator 12/21/17 20:00 30 12/21/17 18:55 78 20 30 12/21/17 17:20 65 14 30 12/21/17 16:00 78 12/21/17 16:00 30 12/21/17 16:00 98.6 71 18 135/68 (90) 100 98.6 12/21/17 16:00 Mechanical Ventilator Mechanical Ventilator Mechanical Ventilator 12/21/17 15:01 64 13 30 12/21/17 13:10 73 18 30 12/21/17 12:00 30 12/21/17 12:00 74 12/21/17 12:00 Mechanical Ventilator Mechanical Ventilator Mechanical Ventilator 12/21/17 11:33 97.7 76 20 141/63 (89) 100 97.7 Intake and Output 12/21/17 12/22/17 19:00 07:00 Intake Total 221.667 ml Output Total 1275 ml 1750 ml Balance -1275 ml -1528.333 ml IV Total 221.667 ml Output Urine Total 1275 ml 1750 ml # Bowel Movements 1 2 Laboratory Tests 12/21/17 14:10: Arterial Blood pH 7.495H, Arterial Blood Partial Pressure CO2 37.6, Arterial Blood Partial Pressure O2 83.0, Arterial Blood HCO3 28.3H, Arterial Blood Oxygen Saturation 95.9, Arterial Blood Base Excess 4.7, Dean Test Positive 12/21/17 19:00: Potassium Level 2.4*L 12/22/17 04:15: Potassium Level 2.9L, Sodium Level 132L, Chloride Level 92L, Carbon Dioxide Level 31, Anion Gap 10, Blood Urea Nitrogen 8, Creatinine 0.5L, Estimat Glomerular Filtration Rate , Glucose Level 131H, Calcium Level 8.1L Height (Feet): 5 Height (Inches): 2.00 Weight (Pounds): 183 General Appearance: no apparent distress, lethargic EENT: PERRL/EOMI Neck: normal alignment Cardiovascular: normal peripheral pulses Respiratory/Chest: no respiratory distress Abdomen: soft Phoenix Gonzalez MD Dec 22, 2017 10:55
[2017-12-22 12:00] VITALS: BP 141/63
--- NOTE | 2017-12-22 13:16 | Infectious Diseases Prog Note ---
Assessment/Plan Assessment/Plan Assessment: Sepsis; improvnig- 2ry to R foot necrotizing soft tissue infection and bacteremia 2ry to Group A strep; possible UTI -CXR 12/21: Near left costophrenic angle blunting, could indicate trace pleural fluid Otherwise little slubber frame changer one day -CXR New or increased right pleural effusion. Persistent unchanged bilateral basilar atelectatic changes. Other stable findings as described - -R foot Xray: Possible gas within the soft tissues of the heel pad, raises concern for infection with gas-forming organism. Indistinctness of the cortical surfaces of the calcaneal tuberosity, could be artifactual due to overlying shadows but could indicate osteomyelitis. Consider MRI for better characterization if clinically indicated. Osteoporosis. Deformities, as described. No acute bony trauma. Osteoporosis -u/a wbc 15-20, nit neg, leuk +3, sq cell mod; repeat u/a wbc tntc, nit neg, leuk +3, sq cells few; ucx >100K P. stuarti (S CTX); repeat uCx 50-60k GNR -Bx 12/19 2/ Group A Strep; 12/20 Bcx NTD -R foot wound cx: MRSA, M. morganni (S Ceftriaxone; R Amp, ancef, cipro/levo, bactrim) Fever/ leukocytosis; improving L ankle wound- no signs of infection -L ankle Xray: Severely angulated fracture deformity of the distal tibia and fibula, as described. This is presumably chronic. Degree of bony union uncertain based on available images, however. Consider CT for further characterization if this is of clinical concern. -wound cx: GAS, MRSA Abd distention -KUB: Limited. No definite acute process hx of LE cellulitis/OM chronic resp failure s/p trach/vent dependent Dementia Dysphagia s/p GT GERD PUD chronic non healing wounds PVD Dementia seizure disorder SNF resident Plan: -Continue IV Vancomycn #09/04- for MRSA wound infection -Switch IV MEropenem #09/08 to Ceftriaxone for UTI, bacteremia and for necrotizing infection -Continue IV Clindamycin #08/01- for necrotizing infection and bacteremia due to GAS -12/19 SP LEvaquin x1 -f/u Repeat Bcx x2 -f/u cx -Monitor CBC/CMP, temperatures -trach/peg care -aspiration precautions -wound care per hosp protocol -Sx f/u; will need surgical intervention pending goals of care -MRI unable to be done as patient on vent Thank you for this consultation. Will continue to follow along with you. Discussed with RN Subjective Allergies: Coded Allergies: PENICILLINS (Verified Allergy, Unknown, 12/19/17) Subjective afebrile >24hrs repeat BCx NTD leukocytosis resolved Objective Vital Signs Last 24 Hour Vital Signs Date Time Temp Pulse Resp B/P (MAP) Pulse Ox O2 Delivery O2 Flow Rate FiO2 12/22/17 12:36 76 16 30 12/22/17 10:48 75 18 30 12/22/17 09:34 75 16 30 12/22/17 08:00 Mechanical Ventilator Mechanical Ventilator Mechanical Ventilator 12/22/17 08:00 99.1 79 21 141/53 (82) 99 99.1 12/22/17 08:00 77 12/22/17 08:00 30 12/22/17 06:47 76 16 30 12/22/17 05:01 75 16 30 12/22/17 04:00 30 12/22/17 04:00 97.5 78 20 143/60 (87) 99 97.5 12/22/17 04:00 83 12/22/17 04:00 Mechanical Ventilator Mechanical Ventilator Mechanical Ventilator 12/22/17 02:58 71 18 30 12/22/17 00:51 67 15 30 12/22/17 00:00 Mechanical Ventilator Mechanical Ventilator Mechanical Ventilator 12/22/17 00:00 72 12/22/17 00:00 30 12/22/17 00:00 97.7 75 18 133/53 (79) 99 97.7 12/21/17 23:01 68 11 30 12/21/17 20:59 69 13 30 12/21/17 20:00 98.3 77 12 131/63 (85) 99 98.3 12/21/17 20:00 62 12/21/17 20:00 Mechanical Ventilator Mechanical Ventilator Mechanical Ventilator 12/21/17 20:00 30 12/21/17 18:55 78 20 30 12/21/17 17:20 65 14 30 12/21/17 16:00 78 12/21/17 16:00 30 12/21/17 16:00 98.6 71 18 135/68 (90) 100 98.6 12/21/17 16:00 Mechanical Ventilator Mechanical Ventilator Mechanical Ventilator 12/21/17 15:01 64 13 30 12/21/17 13:10 73 18 30 Height (Feet): 5 Height (Inches): 2.00 Weight (Pounds): 183 Objective General Appearance: normal inspection, obese, Chronically Ill, Stupor Head: atraumatic Eyes: bilateral eye PERRL ENT: uvula midline, moist mucus membranes Neck: supple, no bony tend, tracheotomy Respiratory: normal inspection, no respiratory distress, no retraction, no wheezing Cardiovascular tachycardia, other Gastrointestinal: non tender Genitourinary: normal inspection Musculoskeletal: back normal, decreased range of motion - contractures Neurologic: aphasia, motor weakness Psychiatric: depressed affect Skin: other - deep ulcer with surrounding erythema to right heel, left lateral malleolus large ulcer without eryythema Microbiology Date/Time Source Procedure Growth Status 12/20/17 15:45 Blood Blood Culture - Preliminary NO GROWTH AFTER 24 HOURS Resulted 12/20/17 15:40 Blood Blood Culture - Preliminary NO GROWTH AFTER 24 HOURS Resulted 12/19/17 17:00 Blood Blood Culture - Final Streptococcus Pyogenes Grp A Complete 12/19/17 16:45 Blood Blood Culture - Final Streptococcus Pyogenes Grp A Complete 12/19/17 17:18 Other Gram Stain - Final Resulted 12/19/17 17:18 Wound Culture - Preliminary Staphylococcus Aureus - Mrsa Streptococcus Pyogenes Grp A Resulted 12/19/17 17:10 Other Gram Stain - Final Resulted 12/19/17 17:10 Wound Culture - Preliminary Staphylococcus Aureus Morganella Morg Spp Morganii Resulted 12/19/17 17:40 Nasal Nares MRSA Culture - Final NO METHICILLIN RESISTANT STAPH AUREUS... Complete 12/20/17 17:20 Urine,Clean Catch Urine Culture - Preliminary Gram Negative Rodríguez Resulted 12/19/17 17:30 Urine,Clean Catch Urine Culture - Final Providencia Stuartii Complete 12/20/17 09:00 Rectum - Final NO CARBAPENEM-RESISTANT ENTEROBACTERI... Complete 12/19/17 17:40 Rectum VRE Culture - Final Enterococcus Faecalis - Vre Complete Laboratory Tests Test 12/21/17 14:10 12/21/17 19:00 12/22/17 04:15 Arterial Blood pH 7.495 (7.350-7.450) Arterial Blood Partial Pressure CO2 37.6 mmHg (35.0-45.0) Arterial Blood Partial Pressure O2 83.0 mmHg (75.0-100.0) Arterial Blood HCO3 28.3 mmol/L (22.0-26.0) H Arterial Blood Oxygen Saturation 95.9 % (92.0-98.0) Arterial Blood Base Excess 4.7 Dean Test Positive Potassium Level 2.4 MMOL/L (3.5-5.1) *L 2.9 MMOL/L (3.5-5.1) L Sodium Level 132 MMOL/L (136-145) L Chloride Level 92 MMOL/L (98-107) L Carbon Dioxide Level 31 MMOL/L (21-32) Anion Gap 10 mmol/L (5-15) Blood Urea Nitrogen 8 mg/dL (7-18) Creatinine 0.5 MG/DL (0.55-1.30) L Estimat Glomerular Filtration Rate mL/min (>60) Glucose Level 131 MG/DL (74-106) H Calcium Level 8.1 MG/DL (8.5-10.1) L Current Medications Medications (Trade) Dose Ordered Sig/Chester Route PRN Reason Start Time Stop Time Status Last Admin Dose Admin Acetaminophen (Tylenol) 650 mg Q6H PRN ORAL Mild Pain/Temp > 100.5 12/20/17 18:00 01/19/18 17:59 Chlorhexidine Gluconate (Merlyn-Hex 2%) 1 applic DAILY@2000 TOPIC 12/21/17 02:45 01/20/18 02:44 12/21/17 20:32 Clindamycin HCl/ Dextrose 50 ml @ 100 mls/hr Q8H IV 12/20/17 23:00 12/27/17 14:59 12/22/17 06:16 Heparin Sodium (Porcine) (Heparin 5000 units/ml) 5,000 units EVERY 12 HOURS SUBQ 12/20/17 21:00 01/19/18 08:59 12/22/17 09:08 Meropenem 1 gm/ Sodium Chloride 55 ml @ 110 mls/hr Q12HR IVPB 12/20/17 21:00 12/25/17 20:59 12/22/17 10:52 Pantoprazole (Protonix) 40 mg DAILY IVP 12/21/17 09:00 01/19/18 08:59 12/22/17 09:05 Quetiapine Fumarate (SEROquel) 12.5 mg Q4H PRN ORAL agitation 12/21/17 13:30 01/20/18 13:29 Sodium Chloride 1,000 ml @ 75 mls/hr [id number] IV 12/22/17 09:15 01/21/18 09:14 12/22/17 10:52 Vancomycin HCl (Vanco rx to dose) 1 ea DAILY PRN MISC Per rx protocol 12/20/17 18:00 01/19/18 17:59 Vancomycin HCl/ Dextrose 250 ml @ 166.667 mls/hr Q24H IVPB 12/21/17 18:00 12/26/17 17:59 12/21/17 20:32 Ximena Grande M.D. Dec 22, 2017 13:16
--- NOTE | 2017-12-22 14:40 | General Surgery Progress Note ---
General Surgery-Progress Note Subjective Additional Comments no acute events. stable Objective Last 24 Hour Vital Signs Date Time Temp Pulse Resp B/P (MAP) Pulse Ox O2 Delivery O2 Flow Rate FiO2 12/22/17 12:36 76 16 30 12/22/17 10:48 75 18 30 12/22/17 09:34 75 16 30 12/22/17 08:00 Mechanical Ventilator Mechanical Ventilator Mechanical Ventilator 12/22/17 08:00 99.1 79 21 141/53 (82) 99 99.1 12/22/17 08:00 77 12/22/17 08:00 30 12/22/17 06:47 76 16 30 12/22/17 05:01 75 16 30 12/22/17 04:00 30 12/22/17 04:00 97.5 78 20 143/60 (87) 99 97.5 12/22/17 04:00 83 12/22/17 04:00 Mechanical Ventilator Mechanical Ventilator Mechanical Ventilator 12/22/17 02:58 71 18 30 12/22/17 00:51 67 15 30 12/22/17 00:00 Mechanical Ventilator Mechanical Ventilator Mechanical Ventilator 12/22/17 00:00 72 12/22/17 00:00 30 12/22/17 00:00 97.7 75 18 133/53 (79) 99 97.7 12/21/17 23:01 68 11 30 12/21/17 20:59 69 13 30 12/21/17 20:00 98.3 77 12 131/63 (85) 99 98.3 12/21/17 20:00 62 12/21/17 20:00 Mechanical Ventilator Mechanical Ventilator Mechanical Ventilator 12/21/17 20:00 30 12/21/17 18:55 78 20 30 12/21/17 17:20 65 14 30 12/21/17 16:00 78 12/21/17 16:00 30 12/21/17 16:00 98.6 71 18 135/68 (90) 100 98.6 12/21/17 16:00 Mechanical Ventilator Mechanical Ventilator Mechanical Ventilator 12/21/17 15:01 64 13 30 I&O Intake and Output 12/21/17 12/22/17 19:00 07:00 Intake Total 221.667 ml Output Total 1275 ml 1750 ml Balance -1275 ml -1528.333 ml IV Total 221.667 ml Output Urine Total 1275 ml 1750 ml # Bowel Movements 1 2 Dressing: saturated Wound: other Drains: other Cardiovascular: RSR Respiratory: clear Abdomen: soft, distended, present bowel sounds Extremities: edema, tenderness, cyanosis Laboratory Tests Test 12/21/17 19:00 12/22/17 04:15 Potassium Level 2.4 MMOL/L (3.5-5.1) *L 2.9 MMOL/L (3.5-5.1) L Sodium Level 132 MMOL/L (136-145) L Chloride Level 92 MMOL/L (98-107) L Carbon Dioxide Level 31 MMOL/L (21-32) Anion Gap 10 mmol/L (5-15) Blood Urea Nitrogen 8 mg/dL (7-18) Creatinine 0.5 MG/DL (0.55-1.30) L Estimat Glomerular Filtration Rate mL/min (>60) Glucose Level 131 MG/DL (74-106) H Calcium Level 8.1 MG/DL (8.5-10.1) L Plan Problems: (1) Decubitus ulcer (2) Bilateral lower leg cellulitis (3) Sepsis Assessment & Plan: 72F with multiple medical comorbidities, chronic condition, chronic wounds, who presented with sepsis. leukocytosis, tachycardia, HD improved. wounds are very concerning. right heel wound is large with significant necrotic tissue, drainage, foul odor. down to muscle and likely bone. left ankle wound large, down to bone, foul smelling and with serosang drainage. very concerning for osteo and acute infection plain films pending could not obtain MRI because of vent. will order bone scan. given patients condition, chronic wounds, and medical state would really need to have discussion about goals of care. there wounds are large and will require extensive care. given how progressive they are there is considerations for right lower extremity amputation and even left lower extremity amputation. will await exam results. will follow with recs for now, skin protectant, packing with gauze and foam dressings. turn q2h. air mattress, keep off wounds, heel protectors. left lower extremity fx chronic. likely reason for ulceration. right heel wound chronic and not likely to have acute gas forming bacteria on exam and gas from chronic wound. extensive debridement possible but would leave large wounds that will be difficult to heal and care for. wound offer bilateral lower extremity amputation to healthy tissue to eliminate infected chronic wounds and need for wound care. will have to discus with colleagues (4) Ulcer of left ankle Assessment & Plan: severely angulated fracture deformity of the distal tibia and fibula. This is presumably chronic. There is a superiorly angulated fracture deformity of the distal tibia and fibula. This is angulated by nearly 90 degrees posteriorly and medially. There is bone bridging the distal tibia and fibula, indicating that this fracture is chronic. It is uncertain whether or not there is a fracture line between the proximal and distal fragments. There is probably severe deformity of the talus. The bones are profoundly osteoporotic. There may be some deformity of the calcaneus as well. (5) Ulcer of right heel and midfoot with necrosis of muscle Assessment & Plan: Possible gas within the soft tissues of the heel pad, raises concern for infection with gas-forming organism Indistinctness of the cortical surfaces of the calcaneal tuberosity, could be artifactual due to overlying shadows but could indicate osteomyelitis. (6) Decubitus ulcer, heel, right, unstageable (7) Decubitus ulcer of left ankle, stage 4 (8) Abdominal distension Donovan Lujan Dec 22, 2017 14:40
[2017-12-22] MEDS ORDERED: Tubing IV Secondary IV ONE (15:35)
[2017-12-22] MEDS ORDERED: NS 275ml ONE (15:35)
[2017-12-22 16:00] VITALS: BP 130/59
[2017-12-22] MEDS: Vancomycin 1250mg/D5W 250ml 250 ML IVPB SCH (18:26)
[2017-12-22 20:00] VITALS: BP 128/60
[2017-12-22] MEDS: cefTRIAXone 2 GM in D5W 55 ML IVPB SCH (20:15)
[2017-12-22] MEDS: Dyna-Hex 2% Top Sol 2oz TOPIC SCH (20:15)
[2017-12-23] VITALS: BP 137/60
[2017-12-23 04:00] VITALS: BP 140/68
[2017-12-23 05:34] LABS: ANION GAP 5 mmol/L (5-15); BLOOD UREA NITROGEN 9 mg/dL (7-18); CALCIUM 8.2 MG/DL (8.5-10.1); CARBON DIOXIDE 33 MMOL/L (21-32); CHLORIDE 94 MMOL/L (98-107); CREATININE 0.6 MG/DL (0.55-1.30); POTASSIUM 2.8 MMOL/L (3.5-5.1); SODIUM 132 MMOL/L (136-145)
[2017-12-23] MEDS: Vancomycin 750mg/NS 250ml IVPB SCH ×2 (06:21→18:25)
[2017-12-23] MEDS: Clindamycin 900mg 50 ML IV SCH ×3 (06:25→22:39)
[2017-12-23 08:00] VITALS: BP 121/61
--- NOTE | 2017-12-23 09:08 | Nephrology Progress Note ---
Assessment/Plan Assessment/Plan A/P 1.Hyponatremia- Na stable at 132. Continue IVFs NS with KCL - Keprra level pending 2. Resp FL- trached/vent 3. Sepsis- per ID mgmt 4. Hypok+ replace today and check mg and phos in am Subjective Date patient seen: Dec 23, 2017 Time patient seen: 09:05 ROS Limited/Unobtainable: Yes Allergies: Coded Allergies: PENICILLINS (Verified Allergy, Unknown, 12/19/17) Subjective Patient trached/vent. No overt distress Objective Last 24 Hour Vital Signs Date Time Temp Pulse Resp B/P (MAP) Pulse Ox O2 Delivery O2 Flow Rate FiO2 12/23/17 08:35 75 12 30 12/23/17 06:58 74 12 30 12/23/17 05:11 73 16 30 12/23/17 04:00 30 12/23/17 04:00 Mechanical Ventilator Mechanical Ventilator Mechanical Ventilator 12/23/17 04:00 98.1 80 16 140/68 (92) 98 98.1 12/23/17 04:00 82 12/23/17 03:16 76 15 30 12/23/17 01:14 86 15 30 12/23/17 00:00 88 12/23/17 00:00 Mechanical Ventilator Mechanical Ventilator Mechanical Ventilator 12/23/17 00:00 99.0 78 16 137/60 (85) 98 99.0 12/23/17 00:00 30 12/22/17 23:24 78 15 30 12/22/17 21:12 76 14 30 12/22/17 20:00 98.0 73 16 128/60 (82) 100 98.0 12/22/17 20:00 30 12/22/17 20:00 Mechanical Ventilator Mechanical Ventilator Mechanical Ventilator 12/22/17 19:16 75 13 30 12/22/17 16:40 71 15 30 12/22/17 16:00 Mechanical Ventilator Mechanical Ventilator Mechanical Ventilator 12/22/17 16:00 30 12/22/17 16:00 98.0 72 20 130/59 (82) 98.0 12/22/17 16:00 68 12/22/17 14:40 77 15 30 12/22/17 12:36 76 16 30 12/22/17 12:00 75 12/22/17 12:00 Mechanical Ventilator Mechanical Ventilator Mechanical Ventilator 12/22/17 12:00 30 12/22/17 12:00 97.9 77 20 141/63 (89) 97.9 12/22/17 10:48 75 18 30 12/22/17 09:34 75 16 30 Intake and Output 12/22/17 12/23/17 19:00 07:00 Intake Total 225 ml 355 ml Output Total 1350 ml Balance -1125 ml 355 ml IV Total 225 ml 355 ml Output Urine Total 1350 ml # Bowel Movements 1 2 Laboratory Tests 12/22/17 17:00: Vancomycin Level Trough 9.6 12/23/17 04:15: Sodium Level 132L, Potassium Level 2.8L, Chloride Level 94L, Carbon Dioxide Level 33H, Anion Gap 5, Blood Urea Nitrogen 9, Creatinine 0.6, Estimat Glomerular Filtration Rate , Glucose Level 125H, Calcium Level 8.2L Height (Feet): 5 Height (Inches): 2.00 Weight (Pounds): 184 General Appearance: WD/WN, no apparent distress EENT: PERRL/EOMI Neck: non-tender, normal alignment Cardiovascular: normal peripheral pulses, normal rate Respiratory/Chest: chest wall non-tender, lungs clear Abdomen: normal bowel sounds, non tender, soft Edema: no edema noted Arm (L), no edema noted Arm (R), no edema noted Leg (L), no edema noted Leg (R), no edema noted Pedal (L), no edema noted Pedal (R), no edema noted Generalized Fahad Dacosta M.D. Dec 23, 2017 09:08
[2017-12-23] MEDS: Pantoprazole Inj IVP SCH (09:16)
[2017-12-23] MEDS: cefTRIAXone 2 GM in D5W 55 ML IVPB SCH (09:16)
[2017-12-23] MEDS: Heparin 5000 units/ml inj SUBQ SCH ×2 (09:18→21:44)
[2017-12-23] MEDS: NS w/KCl 40mEq 1,000 ML IV SCH (11:30)
[2017-12-23 12:00] VITALS: BP 124/63
--- NOTE | 2017-12-23 12:42 | General Surgery Progress Note ---
General Surgery-Progress Note Subjective Additional Comments no acute events. stable Objective Last 24 Hour Vital Signs Date Time Temp Pulse Resp B/P (MAP) Pulse Ox O2 Delivery O2 Flow Rate FiO2 12/23/17 12:00 30 12/23/17 12:00 98.1 73 12 124/63 (83) 98 98.1 12/23/17 12:00 Mechanical Ventilator Mechanical Ventilator Mechanical Ventilator 12/23/17 11:20 72 11 30 12/23/17 08:35 75 12 30 12/23/17 08:00 71 12/23/17 08:00 30 12/23/17 08:00 98.2 67 10 121/61 (81) 98 98.2 12/23/17 08:00 Mechanical Ventilator Mechanical Ventilator Mechanical Ventilator 12/23/17 06:58 74 12 30 12/23/17 05:11 73 16 30 12/23/17 04:00 30 12/23/17 04:00 Mechanical Ventilator Mechanical Ventilator Mechanical Ventilator 12/23/17 04:00 98.1 80 16 140/68 (92) 98 98.1 12/23/17 04:00 82 12/23/17 03:16 76 15 30 12/23/17 01:14 86 15 30 12/23/17 00:00 88 12/23/17 00:00 Mechanical Ventilator Mechanical Ventilator Mechanical Ventilator 12/23/17 00:00 99.0 78 16 137/60 (85) 98 99.0 12/23/17 00:00 30 12/22/17 23:24 78 15 30 12/22/17 21:12 76 14 30 12/22/17 20:00 98.0 73 16 128/60 (82) 100 98.0 12/22/17 20:00 30 12/22/17 20:00 Mechanical Ventilator Mechanical Ventilator Mechanical Ventilator 12/22/17 19:16 75 13 30 12/22/17 16:40 71 15 30 12/22/17 16:00 Mechanical Ventilator Mechanical Ventilator Mechanical Ventilator 12/22/17 16:00 30 12/22/17 16:00 98.0 72 20 130/59 (82) 98.0 12/22/17 16:00 68 12/22/17 14:40 77 15 30 I&O Intake and Output 12/22/17 12/23/17 19:00 07:00 Intake Total 225 ml 355 ml Output Total 1350 ml Balance -1125 ml 355 ml IV Total 225 ml 355 ml Output Urine Total 1350 ml # Bowel Movements 1 2 Dressing: saturated Wound: other Drains: other Cardiovascular: RSR Respiratory: decreased breath sounds Abdomen: soft, distended, present bowel sounds Extremities: other Laboratory Tests Test 12/22/17 17:00 12/23/17 04:15 Vancomycin Level Trough 9.6 ug/mL (5.0-12.0) Sodium Level 132 MMOL/L (136-145) L Potassium Level 2.8 MMOL/L (3.5-5.1) L Chloride Level 94 MMOL/L (98-107) L Carbon Dioxide Level 33 MMOL/L (21-32) H Anion Gap 5 mmol/L (5-15) Blood Urea Nitrogen 9 mg/dL (7-18) Creatinine 0.6 MG/DL (0.55-1.30) Estimat Glomerular Filtration Rate mL/min (>60) Glucose Level 125 MG/DL (74-106) H Calcium Level 8.2 MG/DL (8.5-10.1) L Plan Problems: (1) Decubitus ulcer (2) Bilateral lower leg cellulitis (3) Sepsis Assessment & Plan: 72F with multiple medical comorbidities, chronic condition, chronic wounds, who presented with sepsis. leukocytosis, tachycardia, HD improved. wounds are very concerning. right heel wound is large with significant necrotic tissue, drainage, foul odor. down to muscle and likely bone. left ankle wound large, down to bone, foul smelling and with serosang drainage. very concerning for osteo and acute infection plain films pending could not obtain MRI because of vent. will order bone scan. given patients condition, chronic wounds, and medical state would really need to have discussion about goals of care. there wounds are large and will require extensive care. given how progressive they are there is considerations for right lower extremity amputation and even left lower extremity amputation. will await exam results. will follow with recs for now, skin protectant, packing with gauze and foam dressings. turn q2h. air mattress, keep off wounds, heel protectors. left lower extremity fx chronic. likely reason for ulceration. right heel wound chronic and not likely to have acute gas forming bacteria on exam and gas from chronic wound. extensive debridement possible but would leave large wounds that will be difficult to heal and care for. wound offer bilateral lower extremity amputation to healthy tissue to eliminate infected chronic wounds and need for wound care. will have to discus with colleagues will discuss with family tomorrow if able to contact them (4) Ulcer of left ankle Assessment & Plan: severely angulated fracture deformity of the distal tibia and fibula. This is presumably chronic. There is a superiorly angulated fracture deformity of the distal tibia and fibula. This is angulated by nearly 90 degrees posteriorly and medially. There is bone bridging the distal tibia and fibula, indicating that this fracture is chronic. It is uncertain whether or not there is a fracture line between the proximal and distal fragments. There is probably severe deformity of the talus. The bones are profoundly osteoporotic. There may be some deformity of the calcaneus as well. (5) Ulcer of right heel and midfoot with necrosis of muscle Assessment & Plan: Possible gas within the soft tissues of the heel pad, raises concern for infection with gas-forming organism Indistinctness of the cortical surfaces of the calcaneal tuberosity, could be artifactual due to overlying shadows but could indicate osteomyelitis. (6) Decubitus ulcer, heel, right, unstageable (7) Decubitus ulcer of left ankle, stage 4 (8) Abdominal distension Donovan Lujan Dec 23, 2017 12:42
[2017-12-23] MEDS ORDERED: Tubing IV Secondary IV ONE (15:58)
[2017-12-23] MEDS ORDERED: NS 275ml ONE (15:58)
--- NOTE | 2017-12-23 16:29 | General Progress Note ---
Assessment/Plan Status: unchanged Assessment/Plan 1. Anemia due to underlying chronic disease. --> Continue to closely monitor for improvement. --> Anemia workup has been reviewed. Will trend CBC daily. --> Hgb goal >7 2. Leukocytosis due to underlying septic shock, has been seen by ID Service. The patient with urinary tract infection. --> Pt on abx --> Monitor WBC for improvement. --> WBC normalized. 3. Septic shock due to bilateral lower extremity wound. --> She is getting vancomycin and Levaquin. 4. Abdominal distention, rule out infection. 5. Chronic respiratory failure, status post trach. 6. Dysphagia, status post gastrostomy tube. 7. Gastroesophageal reflux disease. 8. Peripheral vascular disease. 9. Dementia. 10. Seizure disorder. 11. [facility] facility resident. 12. Appreciate recommendations by consultants. The time the note was entered does not necessarily correspond to the time the patient was seen. Subjective Date patient seen: Dec 23, 2017 ROS Limited/Unobtainable: Yes Hematologic/Lymphatic: Reports: anemia Allergies: Coded Allergies: PENICILLINS (Verified Allergy, Unknown, 12/19/17) All Systems: reviewed and negative except above Subjective Pt remains obtunded. No acute events. WBC normalized. Objective Last 24 Hour Vital Signs Date Time Temp Pulse Resp B/P (MAP) Pulse Ox O2 Delivery O2 Flow Rate FiO2 12/23/17 16:00 30 12/23/17 16:00 69 12/23/17 16:00 Mechanical Ventilator Mechanical Ventilator Mechanical Ventilator 12/23/17 14:40 69 10 30 12/23/17 12:41 73 11 30 12/23/17 12:00 30 12/23/17 12:00 70 12/23/17 12:00 98.1 73 12 124/63 (83) 98 98.1 12/23/17 12:00 Mechanical Ventilator Mechanical Ventilator Mechanical Ventilator 12/23/17 11:20 72 11 30 12/23/17 08:35 75 12 30 12/23/17 08:00 71 12/23/17 08:00 30 12/23/17 08:00 98.2 67 10 121/61 (81) 98 98.2 12/23/17 08:00 Mechanical Ventilator Mechanical Ventilator Mechanical Ventilator 12/23/17 06:58 74 12 30 12/23/17 05:11 73 16 30 12/23/17 04:00 30 12/23/17 04:00 Mechanical Ventilator Mechanical Ventilator Mechanical Ventilator 12/23/17 04:00 98.1 80 16 140/68 (92) 98 98.1 12/23/17 04:00 82 12/23/17 03:16 76 15 30 12/23/17 01:14 86 15 30 12/23/17 00:00 88 12/23/17 00:00 Mechanical Ventilator Mechanical Ventilator Mechanical Ventilator 12/23/17 00:00 99.0 78 16 137/60 (85) 98 99.0 12/23/17 00:00 30 12/22/17 23:24 78 15 30 12/22/17 21:12 76 14 30 12/22/17 20:00 98.0 73 16 128/60 (82) 100 98.0 12/22/17 20:00 30 12/22/17 20:00 Mechanical Ventilator Mechanical Ventilator Mechanical Ventilator 12/22/17 19:16 75 13 30 12/22/17 16:40 71 15 30 Intake and Output 12/22/17 12/23/17 19:00 07:00 Intake Total 225 ml 355 ml Output Total 1350 ml Balance -1125 ml 355 ml IV Total 225 ml 355 ml Output Urine Total 1350 ml # Bowel Movements 1 2 Laboratory Tests 12/22/17 17:00: Vancomycin Level Trough 9.6 12/23/17 04:15: Sodium Level 132L, Potassium Level 2.8L, Chloride Level 94L, Carbon Dioxide Level 33H, Anion Gap 5, Blood Urea Nitrogen 9, Creatinine 0.6, Estimat Glomerular Filtration Rate , Glucose Level 125H, Calcium Level 8.2L Height (Feet): 5 Height (Inches): 2.00 Weight (Pounds): 184 General Appearance: no apparent distress, lethargic EENT: PERRL/EOMI Neck: normal alignment Cardiovascular: normal peripheral pulses Respiratory/Chest: no respiratory distress Abdomen: soft Phoenix Gonzalez MD Dec 23, 2017 16:29
[2017-12-23 16:33] VITALS: BP 132/59
[2017-12-23 20:00] VITALS: BP 144/64
[2017-12-23] MEDS: Dyna-Hex 2% Top Sol 2oz TOPIC SCH (20:03)
[2017-12-24] VITALS: BP 148/70
[2017-12-24 04:00] VITALS: BP 149/62
[2017-12-24 05:20] LABS: ANION GAP 9 mmol/L (5-15); BLOOD UREA NITROGEN 9 mg/dL (7-18); CALCIUM 7.9 MG/DL (8.5-10.1); CARBON DIOXIDE 27 MMOL/L (21-32); CHLORIDE 99 MMOL/L (98-107); CREATININE 0.6 MG/DL (0.55-1.30); PHOSPHORUS 3.1 MG/DL (2.5-4.9); SODIUM 135 MMOL/L (136-145)
[2017-12-24] MEDS: NS w/KCl 40mEq 1,000 ML IV SCH ×2 (05:31→14:35)
[2017-12-24] MEDS: Vancomycin 750mg/NS 250ml IVPB SCH ×2 (06:06→18:02)
[2017-12-24] MEDS: Clindamycin 900mg 50 ML IV SCH ×3 (06:50→23:35)
[2017-12-24 08:00] VITALS: BP 148/63
--- NOTE | 2017-12-24 08:18 | Nephrology Progress Note ---
Assessment/Plan Assessment/Plan A/P 1.Hyponatremia- Na up to 135. Continue IVFs NS + KCL 2. Resp FL- trached/vent 3. Sepsis- per ID mgmt 4. Hypok+/Mg- replace today 5. MalFx GTube- per GI evaluation and mgmt Subjective Date patient seen: Dec 24, 2017 Time patient seen: 08:16 ROS Limited/Unobtainable: Yes Allergies: Coded Allergies: PENICILLINS (Verified Allergy, Unknown, 12/19/17) Subjective Patient trached/vent. Stable Objective Last 24 Hour Vital Signs Date Time Temp Pulse Resp B/P (MAP) Pulse Ox O2 Delivery O2 Flow Rate FiO2 12/24/17 06:40 75 17 30 12/24/17 05:10 80 15 30 12/24/17 04:00 70 12/24/17 04:00 Mechanical Ventilator Mechanical Ventilator Mechanical Ventilator 12/24/17 04:00 30 12/24/17 04:00 98.0 73 14 149/62 (91) 100 98.0 12/24/17 03:11 84 17 30 12/24/17 01:10 76 13 30 12/24/17 00:00 Mechanical Ventilator Mechanical Ventilator Mechanical Ventilator 12/24/17 00:00 98.7 70 14 148/70 (96) 99 98.7 12/24/17 00:00 30 12/24/17 00:00 70 12/23/17 23:19 73 15 30 12/23/17 20:44 75 19 30 12/23/17 20:00 30 12/23/17 20:00 72 12/23/17 20:00 97.5 72 16 144/64 (90) 99 97.5 12/23/17 20:00 Mechanical Ventilator Mechanical Ventilator Mechanical Ventilator 12/23/17 19:03 73 13 30 12/23/17 16:33 98.2 98 20 132/59 (83) 99 98.2 12/23/17 16:31 71 12 30 12/23/17 16:00 30 12/23/17 16:00 69 12/23/17 16:00 Mechanical Ventilator Mechanical Ventilator Mechanical Ventilator 12/23/17 14:40 69 10 30 12/23/17 12:41 73 11 30 12/23/17 12:00 30 12/23/17 12:00 70 12/23/17 12:00 98.1 73 12 124/63 (83) 98 98.1 12/23/17 12:00 Mechanical Ventilator Mechanical Ventilator Mechanical Ventilator 12/23/17 11:20 72 11 30 12/23/17 08:35 75 12 30 Intake and Output 12/23/17 12/24/17 19:00 07:00 Intake Total 975 ml 875 ml Output Total 1350 ml 1800 ml Balance -375 ml -925 ml IV Total 975 ml 875 ml Output Urine Total 1350 ml 1800 ml # Bowel Movements 1 1 Laboratory Tests 12/24/17 04:40: Sodium Level 135L, Potassium Level 3.0L, Chloride Level 99, Carbon Dioxide Level 27, Anion Gap 9, Blood Urea Nitrogen 9, Creatinine 0.6, Estimat Glomerular Filtration Rate , Glucose Level 123H, Calcium Level 7.9L, Phosphorus Level 3.1, Magnesium Level 1.3L, Vancomycin Level Trough 15.7H Height (Feet): 5 Height (Inches): 2.00 Weight (Pounds): 182 General Appearance: WD/WN, no apparent distress EENT: PERRL/EOMI Neck: non-tender, normal alignment Cardiovascular: normal peripheral pulses, normal rate Respiratory/Chest: rhonchi - bilaterally Abdomen: normal bowel sounds, non tender, soft Edema: no edema noted Arm (L), no edema noted Arm (R), no edema noted Leg (L), no edema noted Leg (R), no edema noted Pedal (L), no edema noted Pedal (R), no edema noted Generalized Fahad Dacosta M.D. Dec 24, 2017 08:18
[2017-12-24] MEDS: Pantoprazole Inj IVP SCH (08:55)
[2017-12-24] MEDS: cefTRIAXone 2 GM in D5W 55 ML IVPB SCH (08:56)
[2017-12-24] MEDS: Heparin 5000 units/ml inj SUBQ SCH ×2 (08:57→20:57)
--- NOTE | 2017-12-24 09:56 | Infectious Diseases Prog Note ---
Assessment/Plan Assessment/Plan Sepsis; improvnig- 2ry to R foot necrotizing soft tissue infection and bacteremia 2ry to Group A strep; possible UTI -CXR 12/21: Near left costophrenic angle blunting, could indicate trace pleural fluid Otherwise little change room attendant one day -CXR New or increased right pleural effusion. Persistent unchanged bilateral basilar atelectatic changes. Other stable findings as described - -R foot Xray: Possible gas within the soft tissues of the heel pad, raises concern for infection with gas-forming organism. Indistinctness of the cortical surfaces of the calcaneal tuberosity, could be artifactual due to overlying shadows but could indicate osteomyelitis. Consider MRI for better characterization if clinically indicated. Osteoporosis. Deformities, as described. No acute bony trauma. Osteoporosis -u/a wbc 15-20, nit neg, leuk +3, sq cell mod; repeat u/a wbc tntc, nit neg, leuk +3, sq cells few; ucx >100K P. stuarti (S CTX); repeat uCx 50-60k GNR -Bx 12/19/ Group A Strep; 12/20 Bcx Negative -R foot wound cx: MRSA, M. morganni (S Ceftriaxone; R Amp, ancef, cipro/levo, bactrim) Fever/ leukocytosis; improving L ankle wound- no signs of infection -L ankle Xray: Severely angulated fracture deformity of the distal tibia and fibula, as described. This is presumably chronic. Degree of bony union uncertain based on available images, however. Consider CT for further characterization if this is of clinical concern. -wound cx: GAS, MRSA Abd distention -KUB: Limited. No definite acute process hx of LE cellulitis/OM chronic resp failure s/p trach/vent dependent Dementia Dysphagia s/p GT GERD PUD chronic non healing wounds PVD Dementia seizure disorder SNF resident Plan: -Continue IV Vancomycn #6/10-14 for MRSA wound infection - Continue Ceftriaxone #2/10 for UTI, bacteremia and for necrotizing infection SP - Meropenem #4 Ended -Continue IV Clindamycin #5/7-10 for necrotizing infection and bacteremia due to GAS -12/19 SP LEvaquin x1 -Monitor CBC/CMP, temperatures -trach/peg care -aspiration precautions -wound care per hosp protocol -Sx f/u; will need surgical intervention pending goals of care -MRI unable to be done as patient on vent Thank you for this consultation. Will continue to follow along with you. Subjective Allergies: Coded Allergies: PENICILLINS (Verified Allergy, Unknown, 12/19/17) Subjective Patient trached NAD, 30% No Fevers Objective Vital Signs Last 24 Hour Vital Signs Date Time Temp Pulse Resp B/P (MAP) Pulse Ox O2 Delivery O2 Flow Rate FiO2 12/24/17 09:00 73 16 30 12/24/17 08:00 76 12/24/17 06:40 75 17 30 12/24/17 05:10 80 15 30 12/24/17 04:00 70 12/24/17 04:00 Mechanical Ventilator Mechanical Ventilator Mechanical Ventilator 12/24/17 04:00 30 12/24/17 04:00 98.0 73 14 149/62 (91) 100 98.0 12/24/17 03:11 84 17 30 12/24/17 01:10 76 13 30 12/24/17 00:00 Mechanical Ventilator Mechanical Ventilator Mechanical Ventilator 12/24/17 00:00 98.7 70 14 148/70 (96) 99 98.7 12/24/17 00:00 30 12/24/17 00:00 70 12/23/17 23:19 73 15 30 12/23/17 20:44 75 19 30 12/23/17 20:00 30 12/23/17 20:00 72 12/23/17 20:00 97.5 72 16 144/64 (90) 99 97.5 12/23/17 20:00 Mechanical Ventilator Mechanical Ventilator Mechanical Ventilator 12/23/17 19:03 73 13 30 12/23/17 16:33 98.2 98 20 132/59 (83) 99 98.2 12/23/17 16:31 71 12 30 12/23/17 16:00 30 12/23/17 16:00 69 12/23/17 16:00 Mechanical Ventilator Mechanical Ventilator Mechanical Ventilator 12/23/17 14:40 69 10 30 12/23/17 12:41 73 11 30 12/23/17 12:00 30 12/23/17 12:00 70 12/23/17 12:00 98.1 73 12 124/63 (83) 98 98.1 12/23/17 12:00 Mechanical Ventilator Mechanical Ventilator Mechanical Ventilator 12/23/17 11:20 72 11 30 Height (Feet): 5 Height (Inches): 2.00 Weight (Pounds): 182 Objective General Appearance: obese trached, on vent HEENT: atraumatic, MMM, bilateral eye PERRL, uvula midline, moist mucus membranes Neck: supple, no bony tend, tracheotomy Respiratory: normal inspection, no respiratory distress, no retraction, no wheezing Cardiovascular tachycardia, other Gastrointestinal: non tender Genitourinary: normal inspection Musculoskeletal: back normal, decreased range of motion - contractures Neurologic: aphasia, motor weakness Skin: other - deep ulcer with surrounding erythema to right heel, left lateral malleolus large ulcer without erythema Laboratory Tests Test 12/24/17 04:40 Sodium Level 135 MMOL/L (136-145) L Potassium Level 3.0 MMOL/L (3.5-5.1) L Chloride Level 99 MMOL/L (98-107) Carbon Dioxide Level 27 MMOL/L (21-32) Anion Gap 9 mmol/L (5-15) Blood Urea Nitrogen 9 mg/dL (-18) Creatinine 0.6 MG/DL (0.55-1.30) Estimat Glomerular Filtration Rate mL/min (>60) Glucose Level 123 MG/DL (74-106) H Calcium Level 7.9 MG/DL (8.5-10.1) L Phosphorus Level 3.1 MG/DL (2.5-4.9) Magnesium Level 1.3 MG/DL (1.8-2.4) L Vancomycin Level Trough 15.7 ug/mL (5.0-12.0) H Current Medications Medications (Trade) Dose Ordered Sig/Chester Route PRN Reason Start Time Stop Time Status Last Admin Dose Admin Acetaminophen (Tylenol) 650 mg Q6H PRN ORAL Mild Pain/Temp > 100.5 12/20/17 18:00 01/19/18 17:59 Ceftriaxone Sodium 2 gm/ Dextrose 55 ml @ 110 mls/hr DAILY IVPB 12/22/17 20:00 12/29/17 19:59 12/24/17 08:56 Chlorhexidine Gluconate (Merlyn-Hex 2%) 1 applic DAILY@2000 TOPIC 12/21/17 02:45 01/20/18 02:44 12/23/17 20:03 Clindamycin HCl/ Dextrose 50 ml @ 100 mls/hr Q8H IV 12/20/17 23:00 12/27/17 14:59 12/24/17 06:50 Heparin Sodium (Porcine) (Heparin 5000 units/ml) 5,000 units EVERY 12 HOURS SUBQ 12/20/17 21:00 01/19/18 08:59 12/24/17 08:57 Magnesium Sulfate 100 ml @ 100 mls/hr Q1H IVPB 12/24/17 08:15 12/24/17 10:14 12/24/17 08:55 Pantoprazole (Protonix) 40 mg DAILY IVP 12/21/17 09:00 01/19/18 08:59 12/24/17 08:55 Potassium Chloride 100 ml @ 50 mls/hr Q2H IVPB 12/24/17 08:15 12/24/17 12:14 12/24/17 08:55 Quetiapine Fumarate (SEROquel) 12.5 mg Q4H PRN ORAL agitation 12/21/17 13:30 01/20/18 13:29 Sodium Chloride 1,000 ml @ 75 mls/hr [id number] IV 12/22/17 09:15 01/21/18 09:14 12/24/17 05:31 Vancomycin HCl (Vanco rx to dose) 1 ea DAILY PRN MISC Per rx protocol 12/20/17 18:00 01/19/18 17:59 Vancomycin/Sodium Chloride 250 ml @ 166.667 mls/hr Q12HR@0600,1800 IVPB 12/23/17 06:00 12/28/17 05:59 12/24/17 06:06 Jonathan Peres M.D. Dec 24, 2017 09:56
--- NOTE | 2017-12-24 11:43 | Pulmonolgy Critical Care Note ---
Critical Care - Asmt/Plan Problems: (1) Acute on chronic respiratory failure (2) Sepsis (3) Ventilator dependence (4) Quadriplegia (5) Decubitus ulcer Respiratory: monitor respiratory rate, adjust FIO2 Cardiac: continue to monitor HR/BP Renal: F/U I&O Infectious Disease: check cultures Gastrointestinal: continue feedings/current rate, adjust feedings Endocrine: monitor blood sugar, continue sliding scale insulin Hematologic: transfuse if hgb<8.5 Neurologic: PRN Ativan, keep patient comfortable Prophylaxis: Protonix, Heparin Notes Reviewed: hand worker, renal Discussed with: nurses, consultants, casework supervisorsquash centre manager - Objective Last 24 Hour Vital Signs Date Time Temp Pulse Resp B/P (MAP) Pulse Ox O2 Delivery O2 Flow Rate FiO2 12/24/17 10:46 72 16 30 12/24/17 09:00 73 16 30 12/24/17 08:00 30 12/24/17 08:00 98.4 75 18 148/63 (91) 100 98.4 12/24/17 08:00 76 12/24/17 06:40 75 17 30 12/24/17 05:10 80 15 30 12/24/17 04:00 70 12/24/17 04:00 Mechanical Ventilator Mechanical Ventilator Mechanical Ventilator 12/24/17 04:00 30 12/24/17 04:00 98.0 73 14 149/62 (91) 100 98.0 12/24/17 03:11 84 17 30 12/24/17 01:10 76 13 30 12/24/17 00:00 Mechanical Ventilator Mechanical Ventilator Mechanical Ventilator 12/24/17 00:00 98.7 70 14 148/70 (96) 99 98.7 12/24/17 00:00 30 12/24/17 00:00 70 12/23/17 23:19 73 15 30 12/23/17 20:44 75 19 30 12/23/17 20:00 30 12/23/17 20:00 72 12/23/17 20:00 97.5 72 16 144/64 (90) 99 97.5 12/23/17 20:00 Mechanical Ventilator Mechanical Ventilator Mechanical Ventilator 12/23/17 19:03 73 13 30 12/23/17 16:33 98.2 98 20 132/59 (83) 99 98.2 12/23/17 16:31 71 12 30 12/23/17 16:00 30 12/23/17 16:00 69 12/23/17 16:00 Mechanical Ventilator Mechanical Ventilator Mechanical Ventilator 12/23/17 14:40 69 10 30 12/23/17 12:41 73 11 30 12/23/17 12:00 30 12/23/17 12:00 70 12/23/17 12:00 98.1 73 12 124/63 (83) 98 98.1 12/23/17 12:00 Mechanical Ventilator Mechanical Ventilator Mechanical Ventilator Status: awake Condition: grave Neck: full ROM Heart: HR/BP unstable Abdomen: soft, non-tender Critical Care - Subjective ROS Limited/Unobtainable: Yes FI02: 30 Vent Support Breath Rate: 10 Vent Support Mode: AC Vent Tidal Volume: 450 Sputum Amount: Small PEEP: 5.0 PIP: 29 I&O: Intake and Output 12/23/17 12/24/17 19:00 07:00 Intake Total 975 ml 875 ml Output Total 1350 ml 1800 ml Balance -375 ml -925 ml IV Total 975 ml 875 ml Output Urine Total 1350 ml 1800 ml # Bowel Movements 1 1 Labs: Laboratory Tests Test 12/24/17 04:40 Sodium Level 135 MMOL/L (136-145) L Potassium Level 3.0 MMOL/L (3.5-5.1) L Chloride Level 99 MMOL/L (98-107) Carbon Dioxide Level 27 MMOL/L (21-32) Anion Gap 9 mmol/L (5-15) Blood Urea Nitrogen 9 mg/dL (7-18) Creatinine 0.6 MG/DL (0.55-1.30) Estimat Glomerular Filtration Rate mL/min (>60) Glucose Level 123 MG/DL (74-106) H Calcium Level 7.9 MG/DL (8.5-10.1) L Phosphorus Level 3.1 MG/DL (2.5-4.9) Magnesium Level 1.3 MG/DL (1.8-2.4) L Vancomycin Level Trough 15.7 ug/mL (5.0-12.0) H Ang Masterson MD Dec 24, 2017 11:42
--- NOTE | 2017-12-24 11:52 | General Progress Note ---
Assessment/Plan Assessment/Plan encephalopathy Dementia seroquel prn Subjective Date patient seen: Dec 24, 2017 Neurologic/Psychiatric: Reports: anxiety Allergies: Coded Allergies: PENICILLINS (Verified Allergy, Unknown, 12/19/17) Subjective waxing and waning of consciousness Objective Last 24 Hour Vital Signs Date Time Temp Pulse Resp B/P (MAP) Pulse Ox O2 Delivery O2 Flow Rate FiO2 12/24/17 10:46 72 16 30 12/24/17 09:00 73 16 30 12/24/17 08:00 30 12/24/17 08:00 98.4 75 18 148/63 (91) 100 98.4 12/24/17 08:00 76 12/24/17 06:40 75 17 30 12/24/17 05:10 80 15 30 12/24/17 04:00 70 12/24/17 04:00 Mechanical Ventilator Mechanical Ventilator Mechanical Ventilator 12/24/17 04:00 30 12/24/17 04:00 98.0 73 14 149/62 (91) 100 98.0 12/24/17 03:11 84 17 30 12/24/17 01:10 76 13 30 12/24/17 00:00 Mechanical Ventilator Mechanical Ventilator Mechanical Ventilator 12/24/17 00:00 98.7 70 14 148/70 (96) 99 98.7 12/24/17 00:00 30 12/24/17 00:00 70 12/23/17 23:19 73 15 30 12/23/17 20:44 75 19 30 12/23/17 20:00 30 12/23/17 20:00 72 12/23/17 20:00 97.5 72 16 144/64 (90) 99 97.5 12/23/17 20:00 Mechanical Ventilator Mechanical Ventilator Mechanical Ventilator 12/23/17 19:03 73 13 30 12/23/17 16:33 98.2 98 20 132/59 (83) 99 98.2 12/23/17 16:31 71 12 30 12/23/17 16:00 30 12/23/17 16:00 69 12/23/17 16:00 Mechanical Ventilator Mechanical Ventilator Mechanical Ventilator 12/23/17 14:40 69 10 30 12/23/17 12:41 73 11 30 12/23/17 12:00 30 12/23/17 12:00 70 12/23/17 12:00 98.1 73 12 124/63 (83) 98 98.1 12/23/17 12:00 Mechanical Ventilator Mechanical Ventilator Mechanical Ventilator Intake and Output 12/23/17 12/24/17 19:00 07:00 Intake Total 975 ml 875 ml Output Total 1350 ml 1800 ml Balance -375 ml -925 ml IV Total 975 ml 875 ml Output Urine Total 1350 ml 1800 ml # Bowel Movements 1 1 Laboratory Tests 12/24/17 04:40: Sodium Level 135L, Potassium Level 3.0L, Chloride Level 99, Carbon Dioxide Level 27, Anion Gap 9, Blood Urea Nitrogen 9, Creatinine 0.6, Estimat Glomerular Filtration Rate , Glucose Level 123H, Calcium Level 7.9L, Phosphorus Level 3.1, Magnesium Level 1.3L, Vancomycin Level Trough 15.7H Height (Feet): 5 Height (Inches): 2.00 Weight (Pounds): 182 Bob Bauer MD Dec 24, 2017 11:52
[2017-12-24 12:00] VITALS: BP 134/61
--- NOTE | 2017-12-24 13:50 | GI Initial Consult Note ---
History of Present Illness General Date patient seen: Dec 24, 2017 Time patient seen: 14:29 Reason for Hospitalization: Wound Recheck/Suture Removal Referring physician: JOSHUA ROBERTSON Reason for Consultation: GT SITE LEAKAGE / ABDOMINAL DISTENTION Present Illness HPI Patient is a 72-year-old female presented after increased bilateral lower extremity drainage. The patient prior history of chronic nonhealing wounds. Patient had been sent in for further evaluation. Patient had the been noted to be ventilator dependent and have baseline abnormal mental status. Patient was noted to be ventilator dependent.History is limited by patient's mental status. GI consulted for GT site leakage and abdominal distention. ROS limited, pt seen on mechanical vent, NAD with no active s/sx of N/V/D. GT site assessed, noted with 28french GT and widening ostomy; drainage vs pus noted with erythema around the GT site. Abdomen is firm and distended. Pt has been NPO because of this. Pt presents today with anemia, electrolyte imbalance and iron deficiency. All information obtained from medical record. Home Meds Reported Medications Cholecalciferol (Vitamin D3)* (VITAMIN D*) 1,000 Unit Tablet, 5000 UNITS GT DAILY for SUPPLEMENT, TAB 12/19/17 Potassium Chloride (Potassium Chloride) 20 Meq/15 Ml Liquid, 30 MEQ GT BID for HYPOKALEMIA , ML 18 Heparin Sod (Porcine) (HEPARIN SODIUM*) 5 000/1 Ml Vial, 5000 UNITS SUBQ DAILY for DVT PPX, VIAL 12/19/17 Dextran 70/Hypromellose (ARTIFICIAL TEARS EYE DROPS*) 15 Ml Drops, 1 DROP BOTH EYES BID for EYE DRYNESS, ML 0 Refills 12/19/17 Levetiracetam (Keppra) 100 Mg/1 Ml Solution, 5 ML GT TID for SEIZURES, ML 0 Refills 12/19/17 Acetaminophen* (ACETAMINOPHEN 325MG TABLET*) 325 Mg Tablet, 650 MG GT Q4H PRN for For Pain, TAB 12/19/17 Tramadol Hcl* (ULTRAM*) 50 Mg Tablet, 50 MG GT BIDAC PRN for For Pain, #30 TAB 0 Refills 12/19/17 Pantoprazole* (PROTONIX*) 40 Mg Tablet.dr, 40 MG GT DAILY, TAB 12/19/17 Magnesium Hydroxide* (MILK OF MAGNESIA*) 400 Mg/5 Ml Oral.susp, 30 ML ORAL DAILY , ML 12/19/17 Lisinopril (LISINOPRIL*) 20 Mg Tablet, 20 MG GT DAILY, TAB 12/19/17 Atorvastatin Calcium* (ATORVASTATIN CALCIUM*) 20 Mg Tablet, 10 MG GT BEDTIME, TAB 12/19/17 Aspirin* (ASPIRIN*) 325 Mg Tablet, 325 MG GT DAILY, TAB 12/19/17 Lactose-Reduced Food/Fiber (Jevity 1.2 Cuate Liquid) 237 Ml Liquid, 1500 ML PO, ML 12/19/17 Discontinued Reported Medications Vitamin D (Vitamin D3) 400 Unit Tablet, 5000 UNITS GT DAILY, TAB 12/19/17 Potassium Chloride (POTASSIUM CHLORIDE) 40 Meq/15 Ml Liquid, 40 MEQ GT, ML 12/19/17 Levetiracetam (Keppra) 250 Mg Tablet, 500 MG GT DAILY, #50 TAB 0 Refills 12/19/17 Heparin Sod (Porcine) (HEPARIN SODIUM*) 5 000/1 Ml Vial, 5000 UNITS SUBQ EVERY 12 HOURS, VIAL 12/19/17 Dextran 70/Hypromellose (ARTIFICIAL TEARS EYE DROPS*) 15 Ml Drops, 1 DROP BOTH EYES, #15 ML 0 Refills 12/19/17 Med list reviewed/reconciled: Yes Allergies: Coded Allergies: PENICILLINS (Verified Allergy, Unknown, 12/19/17) Patient History Limited by: medical condition History Provided By: Medical Record PMH Narrative Past Medical History: see triage record Past Surgical History: other - gtube, tracheostomy Last Menstrual Period: NA Reviewed Nursing Documentation: PMH: Agreed; PSxH: Agreed Nursing Documentation-PM Past Medical History: No History, Except For Hx Hypertension: Yes - Cellulitis on LE. Osteomyelitis. Hx COPD: Yes - Tracheostomy Hx Gastrointestinal Problems: Yes - dysphagia. GERD. Peptic ulcer. History Of Psychiatric Problem: Yes - Dementia Hx Cerebrovascular Accident: Yes - Peripheral vascular disease Hx Seizures: Yes Review of Systems All Other Systems: limited Physical Exam Vital Signs Date Time Temp Pulse Resp B/P (MAP) Pulse Ox O2 Delivery O2 Flow Rate FiO2 12/20/17 07:00 91 23 109/45 (66) 100 12/20/17 07:00 45 12/20/17 08:00 101.7 101.7 12/20/17 08:00 Mechanical Ventilator Mechanical Ventilator Mechanical Ventilator Labs Laboratory Tests Test 12/24/17 04:40 Sodium Level 135 MMOL/L (136-145) L Potassium Level 3.0 MMOL/L (3.5-5.1) L Chloride Level 99 MMOL/L (98-107) Carbon Dioxide Level 27 MMOL/L (21-32) Anion Gap 9 mmol/L (5-15) Blood Urea Nitrogen 9 mg/dL (7-18) Creatinine 0.6 MG/DL (0.55-1.30) Estimat Glomerular Filtration Rate mL/min (>60) Glucose Level 123 MG/DL (74-106) H Calcium Level 7.9 MG/DL (8.5-10.1) L Phosphorus Level 3.1 MG/DL (2.5-4.9) Magnesium Level 1.3 MG/DL (1.8-2.4) L Vancomycin Level Trough 15.7 ug/mL (5.0-12.0) H General Appearance: no apparent distress Head: normocephalic EENT: normal ENT inspection Neck: supple Respiratory: other - tracheostomy Cardiovascular: normal rate Gastrointestinal: gt - see HPI Genitourinary: no CVA tenderness Musculoskeletal: back normal Skin: other - see HPI Current Medications Current Medications Medications (Trade) Dose Ordered Sig/Chester Route PRN Reason Start Time Stop Time Status Last Admin Dose Admin Acetaminophen (Tylenol) 650 mg Q6H PRN ORAL Mild Pain/Temp > 100.5 12/20/17 18:00 01/19/18 17:59 Ceftriaxone Sodium 2 gm/ Dextrose 55 ml @ 110 mls/hr DAILY IVPB 12/22/17 20:00 12/29/17 19:59 12/24/17 08:56 Chlorhexidine Gluconate (Merlyn-Hex 2%) 1 applic DAILY@2000 TOPIC 12/21/17 02:45 01/20/18 02:44 12/23/17 20:03 Clindamycin HCl/ Dextrose 50 ml @ 100 mls/hr Q8H IV 12/20/17 23:00 12/27/17 14:59 12/24/17 06:50 Heparin Sodium (Porcine) (Heparin 5000 units/ml) 5,000 units EVERY 12 HOURS SUBQ 12/20/17 21:00 01/19/18 08:59 12/24/17 08:57 Pantoprazole (Protonix) 40 mg DAILY IVP 12/21/17 09:00 01/19/18 08:59 12/24/17 08:55 Quetiapine Fumarate (SEROquel) 12.5 mg Q4H PRN ORAL agitation 12/21/17 13:30 01/20/18 13:29 Sodium Chloride 1,000 ml @ 75 mls/hr [id number] IV 12/22/17 09:15 01/21/18 09:14 12/24/17 05:31 Vancomycin HCl (Vanco rx to dose) 1 ea DAILY PRN MISC Per rx protocol 12/20/17 18:00 01/19/18 17:59 Vancomycin/Sodium Chloride 250 ml @ 166.667 mls/hr Q12HR@0600,1800 IVPB 12/23/17 06:00 12/28/17 05:59 12/24/17 06:06 GI: Plan Problems: (1) G-tube site cellulitis (2) Leaking percutaneous endoscopic gastrostomy (PEG) tube (3) Iron deficiency (4) Abdominal distension Plan pt has G Tube 28french present anemia work up reviewed >> iron deficiency GT care/dressing change BID >> send for wound culture will remove GT to allow stoma to close if leaking continues will consider PEG and/or stoma closure if trials are unsuccessful KUB ordered for distention, will consider starting GTFs after imaging study venofer ppi electrolyte correction fu labs Discussed with Dr. Marrero. Thank you for this patient referral, we will follow. The patient was seen and examined at bedside and all new and available data was reviewed in the patients chart. I agree with the above findings, impression and plan. (Patient seen earlier today. Signature stamp does not reflect patient encounter time.). - MD Ladonna [facility]vinMount [facility] MED[facility] BILLING INSTRUCTOR Dec 24, 2017 13:50
--- NOTE | 2017-12-24 13:56 | General Progress Note ---
Assessment/Plan Status: unchanged Assessment/Plan 1. Anemia due to underlying chronic disease. --> Continue to closely monitor for improvement. --> Anemia workup has been reviewed. Will trend CBC daily. --> Hgb goal >7 2. Leukocytosis due to underlying septic shock, has been seen by ID Service. The patient with urinary tract infection. --> Pt on abx --> Monitor WBC for improvement. --> WBC normalized. 3. Septic shock due to bilateral lower extremity wound. --> She is getting vancomycin and Levaquin. 4. Abdominal distention, rule out infection. 5. Chronic respiratory failure, status post trach. 6. Dysphagia, status post gastrostomy tube. 7. Gastroesophageal reflux disease. 8. Peripheral vascular disease. 9. Dementia. 10. Seizure disorder. 11. jail facility resident. 12. Appreciate recommendations by consultants. The time the note was entered does not necessarily correspond to the time the patient was seen. Subjective Date patient seen: Dec 24, 2017 ROS Limited/Unobtainable: Yes Hematologic/Lymphatic: Reports: anemia Allergies: Coded Allergies: PENICILLINS (Verified Allergy, Unknown, 12/19/17) All Systems: reviewed and negative except above Subjective Pt remains obtunded. No acute events. WBC normalized. Bone scan pending. Objective Last 24 Hour Vital Signs Date Time Temp Pulse Resp B/P (MAP) Pulse Ox O2 Delivery O2 Flow Rate FiO2 12/24/17 12:30 69 19 30 12/24/17 12:00 98.5 71 16 134/61 (85) 95 98.5 12/24/17 12:00 Mechanical Ventilator Mechanical Ventilator Mechanical Ventilator 12/24/17 12:00 30 12/24/17 12:00 72 12/24/17 10:46 72 16 30 12/24/17 09:00 73 16 30 12/24/17 08:00 30 12/24/17 08:00 Mechanical Ventilator Mechanical Ventilator Mechanical Ventilator 12/24/17 08:00 98.4 75 18 148/63 (91) 100 98.4 12/24/17 08:00 76 12/24/17 06:40 75 17 30 12/24/17 05:10 80 15 30 12/24/17 04:00 70 12/24/17 04:00 Mechanical Ventilator Mechanical Ventilator Mechanical Ventilator 12/24/17 04:00 30 12/24/17 04:00 98.0 73 14 149/62 (91) 100 98.0 12/24/17 03:11 84 17 30 12/24/17 01:10 76 13 30 12/24/17 00:00 Mechanical Ventilator Mechanical Ventilator Mechanical Ventilator 12/24/17 00:00 98.7 70 14 148/70 (96) 99 98.7 12/24/17 00:00 30 12/24/17 00:00 70 12/23/17 23:19 73 15 30 12/23/17 20:44 75 19 30 12/23/17 20:00 30 12/23/17 20:00 72 12/23/17 20:00 97.5 72 16 144/64 (90) 99 97.5 12/23/17 20:00 Mechanical Ventilator Mechanical Ventilator Mechanical Ventilator 12/23/17 19:03 73 13 30 12/23/17 16:33 98.2 98 20 132/59 (83) 99 98.2 12/23/17 16:31 71 12 30 12/23/17 16:00 30 12/23/17 16:00 69 12/23/17 16:00 Mechanical Ventilator Mechanical Ventilator Mechanical Ventilator 12/23/17 14:40 69 10 30 Intake and Output 12/23/17 12/24/17 19:00 07:00 Intake Total 975 ml 875 ml Output Total 1350 ml 1800 ml Balance -375 ml -925 ml IV Total 975 ml 875 ml Output Urine Total 1350 ml 1800 ml # Bowel Movements 1 1 Laboratory Tests 12/24/17 04:40: Sodium Level 135L, Potassium Level 3.0L, Chloride Level 99, Carbon Dioxide Level 27, Anion Gap 9, Blood Urea Nitrogen 9, Creatinine 0.6, Estimat Glomerular Filtration Rate , Glucose Level 123H, Calcium Level 7.9L, Phosphorus Level 3.1, Magnesium Level 1.3L, Vancomycin Level Trough 15.7H Height (Feet): 5 Height (Inches): 2.00 Weight (Pounds): 182 General Appearance: no apparent distress EENT: normal ENT inspection Neck: normal alignment Cardiovascular: normal peripheral pulses Respiratory/Chest: no respiratory distress Abdomen: soft Phoenix Gonzalez MD Dec 24, 2017 13:56
--- NOTE | 2017-12-24 14:28 | General Progress Note ---
Progress Note Progress Note we had a family meeting with pts sister, who wants only comfort measures. She is waiting for her brother ( pts son) to get out of the [facility]. Once the brother has the opportunity to see his mother. the family will proceed with discontinuation of the ventilator and "end of life" care. Ang Masterson MD Dec 24, 2017 14:28
[2017-12-24 16:00] VITALS: BP 134/63
[2017-12-24] MEDS ORDERED: Tubing IV Secondary IV ONE (16:10)
[2017-12-24] MEDS ORDERED: NS 275ml ONE (16:10)
[2017-12-24] MEDS ORDERED: Sterile Water Irrig 1000ml IRRIG ONE (16:10)
--- NOTE | 2017-12-24 17:09 | General Surgery Progress Note ---
General Surgery-Progress Note Subjective Additional Comments family meeting had. comfort measure only and end of life care Objective Last 24 Hour Vital Signs Date Time Temp Pulse Resp B/P (MAP) Pulse Ox O2 Delivery O2 Flow Rate FiO2 12/24/17 16:11 Mechanical Ventilator Mechanical Ventilator Mechanical Ventilator 12/24/17 16:11 30 12/24/17 14:59 74 16 30 12/24/17 12:30 69 19 30 12/24/17 12:00 98.5 71 16 134/61 (85) 95 98.5 12/24/17 12:00 Mechanical Ventilator Mechanical Ventilator Mechanical Ventilator 12/24/17 12:00 30 12/24/17 12:00 72 12/24/17 10:46 72 16 30 12/24/17 09:00 73 16 30 12/24/17 08:00 30 12/24/17 08:00 Mechanical Ventilator Mechanical Ventilator Mechanical Ventilator 12/24/17 08:00 98.4 75 18 148/63 (91) 100 98.4 12/24/17 08:00 76 12/24/17 06:40 75 17 30 12/24/17 05:10 80 15 30 12/24/17 04:00 70 12/24/17 04:00 Mechanical Ventilator Mechanical Ventilator Mechanical Ventilator 12/24/17 04:00 30 12/24/17 04:00 98.0 73 14 149/62 (91) 100 98.0 12/24/17 03:11 84 17 30 12/24/17 01:10 76 13 30 12/24/17 00:00 Mechanical Ventilator Mechanical Ventilator Mechanical Ventilator 12/24/17 00:00 98.7 70 14 148/70 (96) 99 98.7 12/24/17 00:00 30 12/24/17 00:00 70 12/23/17 23:19 73 15 30 12/23/17 20:44 75 19 30 12/23/17 20:00 30 12/23/17 20:00 72 12/23/17 20:00 97.5 72 16 144/64 (90) 99 97.5 12/23/17 20:00 Mechanical Ventilator Mechanical Ventilator Mechanical Ventilator 12/23/17 19:03 73 13 30 I&O Intake and Output 12/23/17 12/24/17 19:00 07:00 Intake Total 975 ml 875 ml Output Total 1350 ml 1800 ml Balance -375 ml -925 ml IV Total 975 ml 875 ml Output Urine Total 1350 ml 1800 ml # Bowel Movements 1 1 Dressing: saturated Wound: other Drains: other Cardiovascular: RSR Respiratory: decreased breath sounds Abdomen: soft, distended, present bowel sounds Extremities: other Laboratory Tests Test 12/24/17 04:40 Sodium Level 135 MMOL/L (136-145) L Potassium Level 3.0 MMOL/L (3.5-5.1) L Chloride Level 99 MMOL/L (98-107) Carbon Dioxide Level 27 MMOL/L (21-32) Anion Gap 9 mmol/L (5-15) Blood Urea Nitrogen 9 mg/dL (7-18) Creatinine 0.6 MG/DL (0.55-1.30) Estimat Glomerular Filtration Rate mL/min (>60) Glucose Level 123 MG/DL (74-106) H Calcium Level 7.9 MG/DL (8.5-10.1) L Phosphorus Level 3.1 MG/DL (2.5-4.9) Magnesium Level 1.3 MG/DL (1.8-2.4) L Vancomycin Level Trough 15.7 ug/mL (5.0-12.0) H Plan Problems: (1) Decubitus ulcer (2) Bilateral lower leg cellulitis (3) Sepsis Assessment & Plan: 72F with multiple medical comorbidities, chronic condition, chronic wounds, who presented with sepsis. leukocytosis, tachycardia, HD improved. wounds are very concerning. right heel wound is large with significant necrotic tissue, drainage, foul odor. down to muscle and likely bone. left ankle wound large, down to bone, foul smelling and with serosang drainage. very concerning for osteo and acute infection plain films pending could not obtain MRI because of vent. will order bone scan. given patients condition, chronic wounds, and medical state would really need to have discussion about goals of care. there wounds are large and will require extensive care. given how progressive they are there is considerations for right lower extremity amputation and even left lower extremity amputation. will await exam results. will follow with recs for now, skin protectant, packing with gauze and foam dressings. turn q2h. air mattress, keep off wounds, heel protectors. left lower extremity fx chronic. likely reason for ulceration. right heel wound chronic and not likely to have acute gas forming bacteria on exam and gas from chronic wound. extensive debridement possible but would leave large wounds that will be difficult to heal and care for. wound offer bilateral lower extremity amputation to healthy tissue to eliminate infected chronic wounds and need for wound care. will have to discus with colleagues comfort measure / end of life care plans (4) Ulcer of left ankle Assessment & Plan: severely angulated fracture deformity of the distal tibia and fibula. This is presumably chronic. There is a superiorly angulated fracture deformity of the distal tibia and fibula. This is angulated by nearly 90 degrees posteriorly and medially. There is bone bridging the distal tibia and fibula, indicating that this fracture is chronic. It is uncertain whether or not there is a fracture line between the proximal and distal fragments. There is probably severe deformity of the talus. The bones are profoundly osteoporotic. There may be some deformity of the calcaneus as well. (5) Ulcer of right heel and midfoot with necrosis of muscle Assessment & Plan: Possible gas within the soft tissues of the heel pad, raises concern for infection with gas-forming organism Indistinctness of the cortical surfaces of the calcaneal tuberosity, could be artifactual due to overlying shadows but could indicate osteomyelitis. (6) Decubitus ulcer, heel, right, unstageable (7) Decubitus ulcer of left ankle, stage 4 (8) Abdominal distension Donovan Lujan Dec 24, 2017 17:09
--- NOTE | 2017-12-24 17:18 | Diagnostic Imaging Report ---
Indication: Abdominal pain Technique: Supine view of the abdomen Comparison: 12/19/2017 Findings: Exam is limited by body habitus. There is a gastrostomy in the left upper quadrant. Bowel gas pattern is unremarkable. There is evidence of distention of the rectum by feces. No unusual masses or calcifications. There is evidence of bilateral hip contractures Impression: Limited exam. Possible rectal fecal impaction No acute process otherwise. Findings as noted
[2017-12-24 20:00] VITALS: BP 139/73
[2017-12-24] MEDS: Dyna-Hex 2% Top Sol 2oz TOPIC SCH (20:56)
[2017-12-25] VITALS: BP 150/67
[2017-12-25 04:00] VITALS: BP 149/76
[2017-12-25 05:10] LABS: ANION GAP 9 mmol/L (5-15); BLOOD UREA NITROGEN 6 mg/dL (7-18); CALCIUM 8.9 MG/DL (8.5-10.1); CARBON DIOXIDE 26 MMOL/L (21-32); CHLORIDE 98 MMOL/L (98-107); CREATININE 0.6 MG/DL (0.55-1.30); POTASSIUM 4.1 MMOL/L (3.5-5.1); SODIUM 133 MMOL/L (136-145)
[2017-12-25] MEDS: NS w/KCl 40mEq 1,000 ML IV SCH ×2 (06:26→17:29)
[2017-12-25] MEDS: Vancomycin 750mg/NS 250ml IVPB SCH (06:36)
--- NOTE | 2017-12-25 07:43 | Infectious Diseases Prog Note ---
Assessment/Plan Assessment/Plan Sepsis; improvnig- 2ry to R foot necrotizing soft tissue infection and bacteremia 2ry to Group A strep; possible UTI -CXR 12/21: Near left costophrenic angle blunting, could indicate trace pleural fluid Otherwise little slip box changer one day -CXR New or increased right pleural effusion. Persistent unchanged bilateral basilar atelectatic changes. Other stable findings as described - -R foot Xray: Possible gas within the soft tissues of the heel pad, raises concern for infection with gas-forming organism. Indistinctness of the cortical surfaces of the calcaneal tuberosity, could be artifactual due to overlying shadows but could indicate osteomyelitis. Consider MRI for better characterization if clinically indicated. Osteoporosis. Deformities, as described. No acute bony trauma. Osteoporosis -u/a wbc 15-20, nit neg, leuk +3, sq cell mod; repeat u/a wbc tntc, nit neg, leuk +3, sq cells few; ucx >100K P. stuarti (S CTX); repeat uCx 50-60k GNR -Bx 12/19 07/01 Group A Strep; 12/20 Bcx Negative -R foot wound cx: MRSA, M. morganni (S Ceftriaxone; R Amp, ancef, cipro/levo, bactrim) Fever/ leukocytosis; improving L ankle wound- no signs of infection -L ankle Xray: Severely angulated fracture deformity of the distal tibia and fibula, as described. This is presumably chronic. Degree of bony union uncertain based on available images, however. Consider CT for further characterization if this is of clinical concern. -wound cx: GAS, MRSA Abd distention -KUB: Limited. No definite acute process hx of LE cellulitis/OM chronic resp failure s/p trach/vent dependent Dementia Dysphagia s/p GT GERD PUD chronic non healing wounds PVD Dementia seizure disorder SNF resident Plan: -Continue IV Vancomycn #/-14 for MRSA wound infection - Continue Ceftriaxone #3/ for UTI, bacteremia and for necrotizing infection SP - Meropenem #4 Ended -Continue IV Clindamycin #6/7-10 for necrotizing infection and bacteremia due to GAS -12/19 SP LEvaquin x1 -Monitor CBC/CMP, temperatures -trach/peg care -aspiration precautions -wound care per hosp protocol -Sx f/u; will need surgical intervention pending goals of care -MRI unable to be done as patient on vent Thank you for this consultation. Will continue to follow along with you. Subjective Allergies: Coded Allergies: PENICILLINS (Verified Allergy, Unknown, 12/19/17) Subjective Patient trached NAD not opening eyes today 30% FiO2, No Fevers Objective Vital Signs Last 24 Hour Vital Signs Date Time Temp Pulse Resp B/P (MAP) Pulse Ox O2 Delivery O2 Flow Rate FiO2 12/25/17 04:43 82 12 30 12/25/17 04:00 30 12/25/17 04:00 99.0 110 16 149/76 (100) 100 99.0 12/25/17 04:00 93 12/25/17 04:00 Mechanical Ventilator Mechanical Ventilator Mechanical Ventilator 12/25/17 03:20 91 15 30 12/25/17 00:53 76 12 30 12/25/17 00:00 75 12/25/17 00:00 30 12/25/17 00:00 97.7 84 18 150/67 (94) 99 97.7 12/25/17 00:00 Mechanical Ventilator Mechanical Ventilator Mechanical Ventilator 12/24/17 23:29 77 16 30 12/24/17 21:40 74 14 30 12/24/17 21:00 74 14 30 12/24/17 20:00 30 12/24/17 20:00 98.6 77 16 139/73 (95) 100 98.6 12/24/17 20:00 74 12/24/17 20:00 Mechanical Ventilator Mechanical Ventilator Mechanical Ventilator 12/24/17 19:12 77 14 30 12/24/17 16:56 70 16 30 12/24/17 16:52 70 16 Mechanical Ventilator 30 12/24/17 16:11 Mechanical Ventilator Mechanical Ventilator Mechanical Ventilator 12/24/17 16:11 30 12/24/17 16:00 98.5 95 18 134/63 (86) 100 98.5 12/24/17 16:00 71 12/24/17 14:59 74 16 30 12/24/17 12:30 69 19 30 12/24/17 12:00 98.5 71 16 134/61 (85) 95 98.5 12/24/17 12:00 Mechanical Ventilator Mechanical Ventilator Mechanical Ventilator 12/24/17 12:00 30 12/24/17 12:00 72 12/24/17 10:46 72 16 30 12/24/17 09:00 73 16 30 12/24/17 08:00 30 12/24/17 08:00 Mechanical Ventilator Mechanical Ventilator Mechanical Ventilator 12/24/17 08:00 98.4 75 18 148/63 (91) 100 98.4 12/24/17 08:00 76 Height (Feet): 5 Height (Inches): 2.00 Weight (Pounds): 182 Objective General Appearance: obese trached, on vent HEENT: atraumatic, MMM, Neck: supple, no bony tend, tracheotomy Respiratory: normal inspection, no respiratory distress, no retraction, no wheezing Cardiovascular tachycardia, other Gastrointestinal: non tender Genitourinary: normal inspection Musculoskeletal: back normal, decreased range of motion - contractures Neurologic: aphasia, motor weakness Skin: other - deep ulcer with surrounding erythema to right heel, left lateral malleolus large ulcer without erythema Laboratory Tests Test 12/25/17 03:17 Sodium Level 133 MMOL/L (136-145) L Potassium Level 4.1 MMOL/L (3.5-5.1) Chloride Level 98 MMOL/L (98-107) Carbon Dioxide Level 26 MMOL/L (21-32) Anion Gap 9 mmol/L (5-15) Blood Urea Nitrogen 6 mg/dL (7-18) L Creatinine 0.6 MG/DL (0.55-1.30) Estimat Glomerular Filtration Rate mL/min (>60) Glucose Level 116 MG/DL (74-106) H Calcium Level 8.9 MG/DL (8.5-10.1) Current Medications Medications (Trade) Dose Ordered Sig/[place] Route PRN Reason Start Time Stop Time Status Last Admin Dose Admin Acetaminophen (Tylenol) 650 mg Q6H PRN ORAL Mild Pain/Temp > 100.5 12/20/17 18:00 01/19/18 17:59 Ceftriaxone Sodium 2 gm/ Dextrose 55 ml @ 110 mls/hr DAILY IVPB 12/22/17 20:00 12/29/17 19:59 12/24/17 08:56 Chlorhexidine Gluconate (Merlyn-Hex 2%) 1 applic DAILY@2000 TOPIC 12/21/17 02:45 01/20/18 02:44 12/24/17 20:56 Clindamycin HCl/ Dextrose 50 ml @ 100 mls/hr Q8H IV 12/20/17 23:00 12/27/17 14:59 12/24/17 23:35 Heparin Sodium (Porcine) (Heparin 5000 units/ml) 5,000 units EVERY 12 HOURS SUBQ 12/20/17 21:00 01/19/18 08:59 12/24/17 20:57 Pantoprazole (Protonix) 40 mg DAILY IVP 12/21/17 09:00 01/19/18 08:59 12/24/17 08:55 Quetiapine Fumarate (SEROquel) 12.5 mg Q4H PRN ORAL agitation 12/21/17 13:30 01/20/18 13:29 Sodium Chloride 1,000 ml @ 75 mls/hr [id number] IV 12/22/17 09:15 01/21/18 09:14 12/25/17 06:26 Vancomycin HCl (Vanco rx to dose) 1 ea DAILY PRN MISC Per rx protocol 12/20/17 18:00 01/19/18 17:59 Vancomycin/Sodium Chloride 250 ml @ 166.667 mls/hr Q12HR@0600,1800 IVPB 12/23/17 06:00 12/28/17 05:59 12/25/17 06:36 Jonathan Peres M.D. Dec 25, 2017 07:43
[2017-12-25] MEDS: Clindamycin 900mg 50 ML IV SCH ×2 (07:48→15:00)
[2017-12-25 08:00] VITALS: BP 139/81
--- NOTE | 2017-12-25 08:45 | Nephrology Progress Note ---
Assessment/Plan Assessment/Plan A/P 1.Hyponatremia- Sodium stable. Continue IVFs NS + KCL and monitor electrolytes 2. Resp FL- trached/vent. Per Pulm 3. Sepsis- per ID mgmt 4. Hypok+/Mg- replace prn 5. MalFx GTube- per GI evaluation and mgmt. Continue IVFs for now Subjective Date patient seen: Dec 25, 2017 Time patient seen: 08:40 ROS Limited/Unobtainable: Yes Allergies: Coded Allergies: PENICILLINS (Verified Allergy, Unknown, 12/19/17) All Systems: reviewed and negative except above Subjective Patient trached/vent. In no distress Objective Last 24 Hour Vital Signs Date Time Temp Pulse Resp B/P (MAP) Pulse Ox O2 Delivery O2 Flow Rate FiO2 12/25/17 06:50 88 14 30 12/25/17 04:43 82 12 30 12/25/17 04:00 30 12/25/17 04:00 99.0 110 16 149/76 (100) 100 99.0 12/25/17 04:00 93 12/25/17 04:00 Mechanical Ventilator Mechanical Ventilator Mechanical Ventilator 12/25/17 03:20 91 15 30 12/25/17 00:53 76 12 30 12/25/17 00:00 75 12/25/17 00:00 30 12/25/17 00:00 97.7 84 18 150/67 (94) 99 97.7 12/25/17 00:00 Mechanical Ventilator Mechanical Ventilator Mechanical Ventilator 12/24/17 23:29 77 16 30 12/24/17 21:40 74 14 30 12/24/17 21:00 74 14 30 12/24/17 20:00 30 12/24/17 20:00 98.6 77 16 139/73 (95) 100 98.6 12/24/17 20:00 74 12/24/17 20:00 Mechanical Ventilator Mechanical Ventilator Mechanical Ventilator 12/24/17 19:12 77 14 30 12/24/17 16:56 70 16 30 12/24/17 16:52 70 16 Mechanical Ventilator 30 12/24/17 16:11 Mechanical Ventilator Mechanical Ventilator Mechanical Ventilator 12/24/17 16:11 30 12/24/17 16:00 98.5 95 18 134/63 (86) 100 98.5 12/24/17 16:00 71 7/30/18 14:59 74 16 30 12/24/17 12:30 69 19 30 12/24/17 12:00 98.5 71 16 134/61 (85) 95 98.5 12/24/17 12:00 Mechanical Ventilator Mechanical Ventilator Mechanical Ventilator 12/24/17 12:00 30 12/24/17 12:00 72 12/24/17 10:46 72 16 30 12/24/17 09:00 73 16 30 Intake and Output 12/24/17 12/25/17 19:00 07:00 Intake Total 75 ml 750 ml Output Total 1550 ml 1000 ml Balance -1475 ml -250 ml IV Total 75 ml 750 ml Output Urine Total 1550 ml 1000 ml # Bowel Movements 1 1 Laboratory Tests 12/25/17 03:17: Sodium Level 133L, Potassium Level 4.1, Chloride Level 98, Carbon Dioxide Level 26, Anion Gap 9, Blood Urea Nitrogen 6L, Creatinine 0.6, Estimat Glomerular Filtration Rate , Glucose Level 116H, Calcium Level 8.9 Height (Feet): 5 Height (Inches): 2.00 Weight (Pounds): 183 General Appearance: WD/WN, no apparent distress EENT: PERRL/EOMI, normal ENT inspection Neck: non-tender, normal alignment, supple Cardiovascular: normal rate, regular rhythm Respiratory/Chest: rhonchi - bilaterally Abdomen: non tender, soft Edema: no edema noted Arm (L), no edema noted Arm (R), no edema noted Leg (L), no edema noted Leg (R), no edema noted Pedal (L), no edema noted Pedal (R), no edema noted Generalized Fahad Dacosta M.D. Dec 25, 2017 08:45
[2017-12-25] MEDS: Heparin 5000 units/ml inj SUBQ SCH (09:00)
[2017-12-25] MEDS: Pantoprazole Inj IVP SCH (09:00)
[2017-12-25] MEDS: cefTRIAXone 2 GM in D5W 55 ML IVPB SCH (09:00)
[2017-12-25] MEDS ORDERED: Fleet's Enema 133ml RECTAL SCH (10:00)
--- NOTE | 2017-12-25 10:15 | Pulmonolgy Critical Care Note ---
Critical Care - Asmt/Plan Problems: (1) Acute on chronic respiratory failure (2) Sepsis (3) Ventilator dependence (4) Quadriplegia (5) Decubitus ulcer Respiratory: monitor respiratory rate, adjust FIO2 Cardiac: continue to monitor HR/BP Renal: F/U I&O Gastrointestinal: hold feedings Neurologic: PRN Ativan, PRN Morphine, keep patient comfortable Prophylaxis: Protonix, Heparin Notes Reviewed: side door man, cardio Discussed with: nurses, consultants, showcase trimmerresource manager forester - Objective Last 24 Hour Vital Signs Date Time Temp Pulse Resp B/P (MAP) Pulse Ox O2 Delivery O2 Flow Rate FiO2 12/25/17 08:00 Mechanical Ventilator Mechanical Ventilator Mechanical Ventilator 12/25/17 08:00 30 12/25/17 08:00 98.7 112 16 139/81 (100) 100 98.7 12/25/17 08:00 93 12/25/17 06:50 88 14 30 12/25/17 04:43 82 12 30 12/25/17 04:00 30 12/25/17 04:00 99.0 110 16 149/76 (100) 100 99.0 12/25/17 04:00 93 12/25/17 04:00 Mechanical Ventilator Mechanical Ventilator Mechanical Ventilator 12/25/17 03:20 91 15 30 12/25/17 00:53 76 12 30 12/25/17 00:00 75 12/25/17 00:00 30 12/25/17 00:00 97.7 84 18 150/67 (94) 99 97.7 12/25/17 00:00 Mechanical Ventilator Mechanical Ventilator Mechanical Ventilator 12/24/17 23:29 77 16 30 12/24/17 21:40 74 14 30 12/24/17 21:00 74 14 30 12/24/17 20:00 30 12/24/17 20:00 98.6 77 16 139/73 (95) 100 98.6 12/24/17 20:00 74 12/24/17 20:00 Mechanical Ventilator Mechanical Ventilator Mechanical Ventilator 12/24/17 19:12 77 14 30 12/24/17 16:56 70 16 30 12/24/17 16:52 70 16 Mechanical Ventilator 30 12/24/17 16:11 Mechanical Ventilator Mechanical Ventilator Mechanical Ventilator 12/24/17 16:11 30 12/24/17 16:00 98.5 95 18 134/63 (86) 100 98.5 12/24/17 16:00 71 12/24/17 14:59 74 16 30 12/24/17 12:30 69 19 30 12/24/17 12:00 98.5 71 16 134/61 (85) 95 98.5 12/24/17 12:00 Mechanical Ventilator Mechanical Ventilator Mechanical Ventilator 12/24/17 12:00 30 12/24/17 12:00 72 12/24/17 10:46 72 16 30 Status: obtunded HEENT: atraumatic Neck: full ROM Heart: HR/BP stable, HR/BP unstable Abdomen: soft, active bowel sounds Extremities: edema Critical Care - Subjective ROS Limited/Unobtainable: Yes Condition: critical FI02: 30 Vent Support Breath Rate: 10 Vent Support Mode: AC Vent Tidal Volume: 450 Sputum Amount: Small PEEP: 5.0 PIP: 24 I&O: Intake and Output 12/24/17 12/25/17 19:00 07:00 Intake Total 75 ml 750 ml Output Total 1550 ml 1000 ml Balance -1475 ml -250 ml IV Total 75 ml 750 ml Output Urine Total 1550 ml 1000 ml # Bowel Movements 1 1 Labs: Laboratory Tests Test 12/25/17 03:17 Sodium Level 133 MMOL/L (136-145) L Potassium Level 4.1 MMOL/L (3.5-5.1) Chloride Level 98 MMOL/L (98-107) Carbon Dioxide Level 26 MMOL/L (21-32) Anion Gap 9 mmol/L (5-15) Blood Urea Nitrogen 6 mg/dL (7-18) L Creatinine 0.6 MG/DL (0.55-1.30) Estimat Glomerular Filtration Rate mL/min (>60) Glucose Level 116 MG/DL (74-106) H Calcium Level 8.9 MG/DL (8.5-10.1) Ang Masterson MD Dec 25, 2017 10:15
--- NOTE | 2017-12-25 11:00 | General Surgery Progress Note ---
General Surgery-Progress Note Subjective Additional Comments no acute events. resting comfortable. Objective Last 24 Hour Vital Signs Date Time Temp Pulse Resp B/P (MAP) Pulse Ox O2 Delivery O2 Flow Rate FiO2 12/25/17 08:30 85 15 30 12/25/17 08:00 Mechanical Ventilator Mechanical Ventilator Mechanical Ventilator 12/25/17 08:00 30 12/25/17 08:00 98.7 112 16 139/81 (100) 100 98.7 12/25/17 08:00 93 12/25/17 06:50 88 14 30 12/25/17 04:43 82 12 30 12/25/17 04:00 30 12/25/17 04:00 99.0 110 16 149/76 (100) 100 99.0 12/25/17 04:00 93 12/25/17 04:00 Mechanical Ventilator Mechanical Ventilator Mechanical Ventilator 12/25/17 03:20 91 15 30 12/25/17 00:53 76 12 30 12/25/17 00:00 75 12/25/17 00:00 30 12/25/17 00:00 97.7 84 18 150/67 (94) 99 97.7 12/25/17 00:00 Mechanical Ventilator Mechanical Ventilator Mechanical Ventilator 12/24/17 23:29 77 16 30 12/24/17 21:40 74 14 30 12/24/17 21:00 74 14 30 12/24/17 20:00 30 12/24/17 20:00 98.6 77 16 139/73 (95) 100 98.6 12/24/17 20:00 74 12/24/17 20:00 Mechanical Ventilator Mechanical Ventilator Mechanical Ventilator 12/24/17 19:12 77 14 30 12/24/17 16:56 70 16 30 12/24/17 16:52 70 16 Mechanical Ventilator 30 12/24/17 16:11 Mechanical Ventilator Mechanical Ventilator Mechanical Ventilator 12/24/17 16:11 30 12/24/17 16:00 98.5 95 18 134/63 (86) 100 98.5 12/24/17 16:00 71 12/24/17 14:59 74 16 30 12/24/17 12:30 69 19 30 12/24/17 12:00 98.5 71 16 134/61 (85) 95 98.5 12/24/17 12:00 Mechanical Ventilator Mechanical Ventilator Mechanical Ventilator 12/24/17 12:00 30 12/24/17 12:00 72 I&O Intake and Output 12/24/17 12/25/17 19:00 07:00 Intake Total 75 ml 750 ml Output Total 1550 ml 1000 ml Balance -1475 ml -250 ml IV Total 75 ml 750 ml Output Urine Total 1550 ml 1000 ml # Bowel Movements 1 1 Dressing: saturated Wound: other Drains: other Cardiovascular: RSR Respiratory: clear Abdomen: soft, distended, present bowel sounds Extremities: other Laboratory Tests Test 12/25/17 03:17 Sodium Level 133 MMOL/L (136-145) L Potassium Level 4.1 MMOL/L (3.5-5.1) Chloride Level 98 MMOL/L (98-107) Carbon Dioxide Level 26 MMOL/L (21-32) Anion Gap 9 mmol/L (5-15) Blood Urea Nitrogen 6 mg/dL (7-18) L Creatinine 0.6 MG/DL (0.55-1.30) Estimat Glomerular Filtration Rate mL/min (>60) Glucose Level 116 MG/DL (74-106) H Calcium Level 8.9 MG/DL (8.5-10.1) Plan Problems: (1) Decubitus ulcer (2) Bilateral lower leg cellulitis (3) Sepsis Assessment & Plan: 72F with multiple medical comorbidities, chronic condition, chronic wounds, who presented with sepsis. leukocytosis, tachycardia, HD improved. wounds are very concerning. right heel wound is large with significant necrotic tissue, drainage, foul odor. down to muscle and likely bone. left ankle wound large, down to bone, foul smelling and with serosang drainage. very concerning for osteo and acute infection plain films pending could not obtain MRI because of vent. will order bone scan. given patients condition, chronic wounds, and medical state would really need to have discussion about goals of care. there wounds are large and will require extensive care. given how progressive they are there is considerations for right lower extremity amputation and even left lower extremity amputation. will await exam results. will follow with recs for now, skin protectant, packing with gauze and foam dressings. turn q2h. air mattress, keep off wounds, heel protectors. left lower extremity fx chronic. likely reason for ulceration. right heel wound chronic and not likely to have acute gas forming bacteria on exam and gas from chronic wound. extensive debridement possible but would leave large wounds that will be difficult to heal and care for. wound offer bilateral lower extremity amputation to healthy tissue to eliminate infected chronic wounds and need for wound care. will have to discus with colleagues comfort measure / end of life care plans (4) Ulcer of left ankle Assessment & Plan: severely angulated fracture deformity of the distal tibia and fibula. This is presumably chronic. There is a superiorly angulated fracture deformity of the distal tibia and fibula. This is angulated by nearly 90 degrees posteriorly and medially. There is bone bridging the distal tibia and fibula, indicating that this fracture is chronic. It is uncertain whether or not there is a fracture line between the proximal and distal fragments. There is probably severe deformity of the talus. The bones are profoundly osteoporotic. There may be some deformity of the calcaneus as well. (5) Ulcer of right heel and midfoot with necrosis of muscle Assessment & Plan: Possible gas within the soft tissues of the heel pad, raises concern for infection with gas-forming organism Indistinctness of the cortical surfaces of the calcaneal tuberosity, could be artifactual due to overlying shadows but could indicate osteomyelitis. (6) Decubitus ulcer, heel, right, unstageable (7) Decubitus ulcer of left ankle, stage 4 (8) Abdominal distension Donovan Lujan Dec 25, 2017 11:00
--- NOTE | 2017-12-25 11:17 | General Progress Note ---
Assessment/Plan Status: stable Assessment/Plan encephalopathy Dementia seroquel prn Subjective Date patient seen: Dec 25, 2017 Neurologic/Psychiatric: Reports: anxiety, depressed, emotional problems Allergies: Coded Allergies: PENICILLINS (Verified Allergy, Unknown, 12/19/17) Subjective waxing and waning of consciousness lethargic Objective Last 24 Hour Vital Signs Date Time Temp Pulse Resp B/P (MAP) Pulse Ox O2 Delivery O2 Flow Rate FiO2 12/25/17 10:56 81 12 30 12/25/17 08:30 85 15 30 12/25/17 08:00 Mechanical Ventilator Mechanical Ventilator Mechanical Ventilator 12/25/17 08:00 30 12/25/17 08:00 98.7 112 16 139/81 (100) 100 98.7 12/25/17 08:00 93 12/25/17 06:50 88 14 30 12/25/17 04:43 82 12 30 12/25/17 04:00 30 12/25/17 04:00 99.0 110 16 149/76 (100) 100 99.0 12/25/17 04:00 93 12/25/17 04:00 Mechanical Ventilator Mechanical Ventilator Mechanical Ventilator 12/25/17 03:20 91 15 30 12/25/17 00:53 76 12 30 12/25/17 00:00 75 12/25/17 00:00 30 12/25/17 00:00 97.7 84 18 150/67 (94) 99 97.7 12/25/17 00:00 Mechanical Ventilator Mechanical Ventilator Mechanical Ventilator 12/24/17 23:29 77 16 30 12/24/17 21:40 74 14 30 12/24/17 21:00 74 14 30 12/24/17 20:00 30 12/24/17 20:00 98.6 77 16 139/73 (95) 100 98.6 12/24/17 20:00 74 12/24/17 20:00 Mechanical Ventilator Mechanical Ventilator Mechanical Ventilator 12/24/17 19:12 77 14 30 12/24/17 16:56 70 16 30 12/24/17 16:52 70 16 Mechanical Ventilator 30 12/24/17 16:11 Mechanical Ventilator Mechanical Ventilator Mechanical Ventilator 12/24/17 16:11 30 12/24/17 16:00 98.5 95 18 134/63 (86) 100 98.5 12/24/17 16:00 71 12/24/17 14:59 74 16 30 12/24/17 12:30 69 19 30 12/24/17 12:00 98.5 71 16 134/61 (85) 95 98.5 12/24/17 12:00 Mechanical Ventilator Mechanical Ventilator Mechanical Ventilator 12/24/17 12:00 30 12/24/17 12:00 72 Intake and Output 12/24/17 12/25/17 19:00 07:00 Intake Total 75 ml 750 ml Output Total 1550 ml 1000 ml Balance -1475 ml -250 ml IV Total 75 ml 750 ml Output Urine Total 1550 ml 1000 ml # Bowel Movements 1 1 Laboratory Tests 12/25/17 03:17: Sodium Level 133L, Potassium Level 4.1, Chloride Level 98, Carbon Dioxide Level 26, Anion Gap 9, Blood Urea Nitrogen 6L, Creatinine 0.6, Estimat Glomerular Filtration Rate , Glucose Level 116H, Calcium Level 8.9 Height (Feet): 5 Height (Inches): 2.00 Weight (Pounds): 183 General Appearance: lethargic, confused Bob Bauer MD Dec 25, 2017 11:17
[2017-12-25 12:00] VITALS: BP 130/75
--- NOTE | 2017-12-25 14:31 | General Progress Note ---
Assessment/Plan Status: unchanged Assessment/Plan 1. Anemia due to underlying chronic disease. --> Continue to closely monitor for improvement. --> Anemia workup has been reviewed. Will trend CBC daily. --> Hgb goal >7 2. Leukocytosis due to underlying septic shock, has been seen by ID Service. The patient with urinary tract infection. --> Pt on abx --> Monitor WBC for improvement. --> WBC normalized. 3. Septic shock due to bilateral lower extremity wound. --> She is getting vancomycin and Levaquin. 4. Abdominal distention, rule out infection. 5. Chronic respiratory failure, status post trach. 6. Dysphagia, status post gastrostomy tube. 7. Gastroesophageal reflux disease. 8. Peripheral vascular disease. 9. Dementia. 10. Seizure disorder. 11. [facility] facility resident. 12. Appreciate recommendations by consultants. The time the note was entered does not necessarily correspond to the time the patient was seen. Subjective Date patient seen: Dec 25, 2017 ROS Limited/Unobtainable: Yes Allergies: Coded Allergies: PENICILLINS (Verified Allergy, Unknown, 12/19/17) All Systems: reviewed and negative except above Subjective Pt remains obtunded. No acute events. Objective Last 24 Hour Vital Signs Date Time Temp Pulse Resp B/P (MAP) Pulse Ox O2 Delivery O2 Flow Rate FiO2 12/25/17 12:33 84 14 30 12/25/17 12:00 89 12/25/17 12:00 98.2 89 16 130/75 (93) 100 98.2 12/25/17 12:00 Mechanical Ventilator Mechanical Ventilator Mechanical Ventilator 12/25/17 12:00 30 12/25/17 10:56 81 12 30 12/25/17 08:30 85 15 30 12/25/17 08:00 Mechanical Ventilator Mechanical Ventilator Mechanical Ventilator 12/25/17 08:00 30 12/25/17 08:00 98.7 112 16 139/81 (100) 100 98.7 12/25/17 08:00 93 12/25/17 06:50 88 14 30 12/25/17 04:43 82 12 30 12/25/17 04:00 30 12/25/17 04:00 99.0 110 16 149/76 (100) 100 99.0 12/25/17 04:00 93 12/25/17 04:00 Mechanical Ventilator Mechanical Ventilator Mechanical Ventilator 12/25/17 03:20 91 15 30 12/25/17 00:53 76 12 30 12/25/17 00:00 75 12/25/17 00:00 30 12/25/17 00:00 97.7 84 18 150/67 (94) 99 97.7 12/25/17 00:00 Mechanical Ventilator Mechanical Ventilator Mechanical Ventilator 12/24/17 23:29 77 16 30 12/24/17 21:40 74 14 30 12/24/17 21:00 74 14 30 12/24/17 20:00 30 12/24/17 20:00 98.6 77 16 139/73 (95) 100 98.6 12/24/17 20:00 74 12/24/17 20:00 Mechanical Ventilator Mechanical Ventilator Mechanical Ventilator 12/24/17 19:12 77 14 30 12/24/17 16:56 70 16 30 12/24/17 16:52 70 16 Mechanical Ventilator 30 12/24/17 16:11 Mechanical Ventilator Mechanical Ventilator Mechanical Ventilator 12/24/17 16:11 30 12/24/17 16:00 98.5 95 18 134/63 (86) 100 98.5 12/24/17 16:00 71 12/24/17 14:59 74 16 30 Intake and Output 12/24/17 12/25/17 19:00 07:00 Intake Total 75 ml 750 ml Output Total 1550 ml 1000 ml Balance -1475 ml -250 ml IV Total 75 ml 750 ml Output Urine Total 1550 ml 1000 ml # Bowel Movements 1 1 Laboratory Tests 12/25/17 03:17: Sodium Level 133L, Potassium Level 4.1, Chloride Level 98, Carbon Dioxide Level 26, Anion Gap 9, Blood Urea Nitrogen 6L, Creatinine 0.6, Estimat Glomerular Filtration Rate , Glucose Level 116H, Calcium Level 8.9 Height (Feet): 5 Height (Inches): 2.00 Weight (Pounds): 183 General Appearance: no apparent distress, lethargic EENT: PERRL/EOMI Neck: normal alignment Cardiovascular: normal peripheral pulses Respiratory/Chest: no respiratory distress Abdomen: soft Phoenix Gonzalez MD Dec 25, 2017 14:31
--- NOTE | 2017-12-25 15:17 | GI Progress Note ---
Assessment/Plan Problems: (1) Constipation ICD Codes: K59.00 - Constipation, unspecified SNOMED: 27636861 (2) Leaking percutaneous endoscopic gastrostomy (PEG) tube ICD Codes: K94.23 - Gastrostomy malfunction SNOMED: 815844921 (3) G-tube site cellulitis ICD Codes: K94.22 - Gastrostomy infection; L03.319 - Cellulitis of trunk, unspecified SNOMED: 743248786, 662979551 (4) Iron deficiency ICD Codes: E61.1 - Iron deficiency SNOMED: 35409079 (5) Abdominal distension ICD Codes: R14.0 - Abdominal distension (gaseous) SNOMED: 88605901 Status: stable Status Narrative Discussed with Dr. Marrero. Assessment/Plan pt has G Tube 28french present anemia work up reviewed >> iron deficiency KUB reviewed >> fecal impaction start GTFs per RD, adv to goal defer removing GT at this point GT care/dressing change BID fleets x 1 venofer ppi electrolyte correction fu labs The patient was seen and examined at bedside and all new and available data was reviewed in the patients chart. I agree with the above findings, impression and plan. (Patient seen earlier today. Signature stamp does not reflect patient encounter time.). - Dale Marrero MD Subjective Subjective limited Objective Last 24 Hour Vital Signs Date Time Temp Pulse Resp B/P (MAP) Pulse Ox O2 Delivery O2 Flow Rate FiO2 12/25/17 14:56 79 13 30 12/25/17 12:33 84 14 30 12/25/17 12:00 89 12/25/17 12:00 98.2 89 16 130/75 (93) 100 98.2 12/25/17 12:00 Mechanical Ventilator Mechanical Ventilator Mechanical Ventilator 12/25/17 12:00 30 12/25/17 10:56 81 12 30 12/25/17 08:30 85 15 30 12/25/17 08:00 Mechanical Ventilator Mechanical Ventilator Mechanical Ventilator 12/25/17 08:00 30 12/25/17 08:00 98.7 112 16 139/81 (100) 100 98.7 12/25/17 08:00 93 12/25/17 06:50 88 14 30 12/25/17 04:43 82 12 30 12/25/17 04:00 30 12/25/17 04:00 99.0 110 16 149/76 (100) 100 99.0 12/25/17 04:00 93 12/25/17 04:00 Mechanical Ventilator Mechanical Ventilator Mechanical Ventilator 12/25/17 03:20 91 15 30 12/25/17 00:53 76 12 30 12/25/17 00:00 75 12/25/17 00:00 30 12/25/17 00:00 97.7 84 18 150/67 (94) 99 97.7 12/25/17 00:00 Mechanical Ventilator Mechanical Ventilator Mechanical Ventilator 12/24/17 23:29 77 16 30 12/24/17 21:40 74 14 30 12/24/17 21:00 74 14 30 12/24/17 20:00 30 12/24/17 20:00 98.6 77 16 139/73 (95) 100 98.6 12/24/17 20:00 74 12/24/17 20:00 Mechanical Ventilator Mechanical Ventilator Mechanical Ventilator 12/24/17 19:12 77 14 30 12/24/17 16:56 70 16 30 12/24/17 16:52 70 16 Mechanical Ventilator 30 12/24/17 16:11 Mechanical Ventilator Mechanical Ventilator Mechanical Ventilator 12/24/17 16:11 30 12/24/17 16:00 98.5 95 18 134/63 (86) 100 98.5 12/24/17 16:00 71 Intake and Output 12/24/17 12/25/17 19:00 07:00 Intake Total 75 ml 750 ml Output Total 1550 ml 1000 ml Balance -1475 ml -250 ml IV Total 75 ml 750 ml Output Urine Total 1550 ml 1000 ml # Bowel Movements 1 1 Laboratory Tests Test 12/25/17 03:17 Sodium Level 133 MMOL/L (136-145) L Potassium Level 4.1 MMOL/L (3.5-5.1) Chloride Level 98 MMOL/L (98-107) Carbon Dioxide Level 26 MMOL/L (21-32) Anion Gap 9 mmol/L (5-15) Blood Urea Nitrogen 6 mg/dL (7-18) L Creatinine 0.6 MG/DL (0.55-1.30) Estimat Glomerular Filtration Rate mL/min (>60) Glucose Level 116 MG/DL (74-106) H Calcium Level 8.9 MG/DL (8.5-10.1) Height (Feet): 5 Height (Inches): 2.00 Weight (Pounds): 183 General Appearance: no apparent distress Cardiovascular: normal rate Respiratory/Chest: normal breath sounds, no respiratory distress Abdominal Exam: normal bowel sounds, non tender, soft, GT site - minimal leakage Extremities: non-tender Latisha Dougherty NP Dec 25, 2017 15:17
[2017-12-25 16:00] VITALS: BP 132/70
[2017-12-25] MEDS ORDERED: NS 275ml ONE (18:19)
[2017-12-25] MEDS ORDERED: Tubing IV Secondary IV ONE (18:19)
[2017-12-25] MEDS ORDERED: 1/2 NS 1000ml IV ONE (18:19)
--- NOTE | 2017-12-27 09:00 | Discharge Summary ---
Discharge Summary Discharge Summary _ DATE OF ADMISSION: 12/19/2017 DATE OF DISCHARGE: 12/25/2017 REASON FOR ADMISSION: 72 years old female with past medical history significant for chronic respiratory failure, ventilator dependent with tracheostomy, lower extremity cellulitis/osteomyelitis, dementia, dysphagia, status post G-tube, peptic ulcer disease, peripheral vascular disease, GERD, chronic nonhealing wounds with pressure ulcers present on admission, dementia, seizure disorder, senior care resident, presented to emergency department with increased bilateral lower extremity wound drainage. Drainage noted to be foul smelling, yellow and sanguinous in color. Patient had recent debridement of the wounds at [facility]. Upon evaluation, patient was febrile 101.7, with leukocytosis WBC 18.8 . Blood pressure 86/40 Patient was anemic with hemoglobin 8.5 hematocrit 24.2 Sodium 123 Troponin negative Urinalysis with evidence of UTI Lactic acid 1.1 central line was placed in ED for IV antibiotics. Septic workup initiated. Patient started on fluid resuscitation. Patient admitted with diagnosis sepsis, acute on chronic respiratory failure, ventilator dependent respiratory failure, acute hyponatremia, anemia, possible UTI , chronic nonhealing wounds CONSULTANTS: pulmonary Dr. Masterson ID specialist Dr. Jim GI specialist Dr. Marrero operater Dr.[place] surgery Dr. Lujan psychiatrist [facility] COURSE: Patient admitted to [facility]. Ventilator support and tracheostomy care provided. ABG was stable on current settings. Settings titrated as needed. No pneumonia on chest x-ray. Pulmonary toilet provided as needed. Strict aspiration precautions maintained. Clinic Office Coordinator closely followed. Infectious disease specialist closely followed. Patient started on empiric antibiotic. Blood culture revealed Streptococci pyogenous group A. Urine culture revealed Providencia. Wound culture revealed Strep pyogenes group A , MRSA, Morganella. Antibiotic regimen optimized based on culture and sensitivity per ID specialist recommendations. Repeated blood culture were negative. Leukocytosis resolved, afebrile. According to infectious disease specialist sepsis was secondary to right foot necrotizing soft tissue infection. Infectious disease specialist recommended to continue antibiotics at the [facility] facility to complete the course. Carbonation Equipment Tender closely followed. Initially thought that hyponatremia was a component of SIADH from underlying Keppra. Free water restriction was provided. Isotonic IV fluids were provided. Sodium was monitored on daily basis. Serum sodium improved . Renal parameters and electrolytes were closely monitored , electrolytes such as potassium and magnesium, replaced as needed, nephrotoxins were avoided. Seizure precaution maintained, no evidence of seizure activity while in the hospital. Surgeon closely followed. Wound care provided as per surgeon recommendations. Patient was unable to have MRI due to being on ventilator. Right foot x-ray revealed possible gas within the soft tissue of the head, raising concern for infection with a gas-forming organism. X-ray of the left ankle revealed severely angulated fracture deformity, presumptively chronic. Per surgeon, given patient's condition, chronic wounds, and medical state recommended discussion regarding goals of care. Wounds large, required extensive care, most probably amputation of right lower extremity and probably left lower extremity amputation. Noted to have a leaking G-tube and abdominal distention. GI consult was requested. KUB revealed fecal impaction . Bowel regimen instituted. Tube feeding started as per registered dietitian recommendations. GI specialist recommended to hold removing G-tube at this point. G-tube site care provided with dressing changes twice a day as recommended by GI specialist. Anemia workup revealed evidence of iron deficiency anemia and anemia of chronic disease. Patient was provided with Venofer. Patient started on PPI. Psychiatrist closely followed and diagnosed patient with encephalopathy and dementia. Patient started on Seroquel on needed basis. Patient is a DNR/DNI status. Family meeting was held during patient's stay in the hospital to discuss patient prognosis, multiply chronic comorbidities and future goals of care . During family meeting it was determined that family declined G-tube replacement and amputation of leg. Code status DNR/DNI. Per family wishes, patient to return to [facility] facility for comfort care. FINAL DIAGNOSES: Sepsis with Strep A bacteremia ( secondary to right foot necrotizing tissue infection) probable UTI with Providencia shock acute on chronic respiratory failure ventilator dependent respiratory failure with tracheostomy status acute hyponatremia anemia of chronic disease iron deficiency anemia dysphagia G-tube G-tube site cellulitis leaking PEG bilateral lower extremity cellulitis with chronic nonhealing wounds seizure disorder PVD GERD decubitus ulcer present on admission electrolyte imbalance(hypokalemia, hypomagnesemia,) encephalopathy DISCHARGE MEDICATIONS: See Medication Reconciliation list. DISCHARGE INSTRUCTIONS: Patient was discharged to [facility] facility for comfort care. Follow up with medical doctor at the facility. I have been assigned to dictate discharge summary for this account. I was not involved in the patient's management. Park Al NP Dec 27, 2017 09:00
--- NOTE | 2018-01-04 14:21 | Cardiology Report ---
APPROVED REPORT EKG Measurement Heart [id number] 154P-3 [id number] Sinus tachycardia Possible Inferior infarct, age undetermined Cannot rule out Anterior infarct, age undetermined Abnormal ECG
== END 2017-12-25 18:20 | DRG 720 ==
LOC: EDBD 16:26 → EDBEDREQ 16:41 → EMR 16:50 → ICU 17:20 → EDBEDREQSVC 17:53 → EDBEDREQTM 18:13 → EDBEDREQ 20:28 → 2W 12-20 18:10
PROC: 5A1955Z Respiratory Ventilation, Greater than 96 Consecutive Hours (ICD-10-PCS; principal; 2017-12-19)
PROC: 05H533Z Insertion of Infusion Device into Right Subclavian Vein, Percutaneous Approach (ICD-10-PCS; 2017-12-19)
DX: A40.0 Sepsis due to streptococcus, group A (principal); R65.21 Severe sepsis with septic shock; Z99.11 Dependence on respirator [ventilator] status; G82.50 Quadriplegia, unspecified; G93.40 Encephalopathy, unspecified; I96 Gangrene, not elsewhere classified; L89.524 Pressure ulcer of left ankle, stage 4; J96.10 Chronic respiratory failure, unspecified whether with hypoxia or hypercapnia; L03.311 Cellulitis of abdominal wall; L03.115 Cellulitis of right lower limb; Z93.0 Tracheostomy status; D50.9 Iron deficiency anemia, unspecified; K94.22 Gastrostomy infection; B95.62 Methicillin resistant Staphylococcus aureus infection as the cause of diseases classified elsewhere; K94.23 Gastrostomy malfunction; R13.10 Dysphagia, unspecified; I73.9 Peripheral vascular disease, unspecified; F03.90 Unspecified dementia, unspecified severity, without behavioral disturbance, psychotic disturbance, mood disturbance, and anxiety; G40.909 Epilepsy, unspecified, not intractable, without status epilepticus; N39.0 Urinary tract infection, site not specified; E87.1 Hypo-osmolality and hyponatremia; E83.42 Hypomagnesemia; E87.6 Hypokalemia; I10 Essential (primary) hypertension; L03.116 Cellulitis of left lower limb; L89.610 Pressure ulcer of right heel, unstageable; K59.00 Constipation, unspecified; Z51.5 Encounter for palliative care; Z66 Do not resuscitate
CPT/HCPCS: 36415; 36600; 71045; 74018; 80048; 80053; 80202; 80299; 81003; 82550; 82553; 82607; 82728; 82746; 82803; 83540; 83550; 83605; 83615; 83735; 83880; 84100; 84132; 84443; 84484; 85007; 85025; 85384; 85610; 85730; 86850; 86900; 86901; 87040; 87070; 87081; 87086; 87181; 87205; 93005; 93306; 94002; 94003; 94664; 99291; S0077

== ENCOUNTER 2018-07-06 14:22 | Emergency (ER) | payer MEDICAID ==
[~2018-07-06] VITALS: Ht 149.9 cm; Wt 54.4 kg
[~2018-07-06 14:22] MED LIST: ACETAMINOPHEN325 M1 GT; ARTIFICIAL TEAR15 ML BOTH EYES; ASPIRIN325 MG GT; ATORVASTATIN CA20 MG GT; HEPARIN SO5000 UNIT2 SUBQ; JEVITY 1.2 CA1500 ML PO; KEPPRA LIQ100 MG/1 M GT; KEPPRA500 MG GT; LISINOPRIL20 MG GT; MILK OF MA400 MG/51 ORAL; POTASSIUM30 MEQ/22. GT; POTASSIUM40 MEQ/11 GT; PROTONIX40 MG GT; TRAMADOL HCL50 MG GT; VITAMIN D1000 UNI1 GT; VITAMIN D400 INTLU GT
--- NOTE | 2018-07-06 14:25 | NUR ---
ED Nurse Note: patient brought in by ambulance from [facility] for gtube replacement. Dr. Gallagher replaced gtube. x-ray called for confirmation.
--- NOTE | 2018-07-06 14:25 | Emergency Room Report ---
History of Present Illness General Chief Complaint: Malfunctioning Gastric Tube Source: EMS Present Illness HPI Patient was sent from [facility] after G-tube was accidentally removed. The patient was sent in for G-tube replacement. There was no drainage from the G- tube. Patient had not been vomiting. There was no fever. She was noted to be chronically vent dependent and G-tube dependent. Allergies: Coded Allergies: PENICILLINS (Verified Allergy, Unknown, 12/19/17) Patient History Last Menstrual Period: n/a Nursing Documentation-H Hx Cardiac Problems: Yes Hx Hypertension: Yes Hx COPD: Yes Hx Diabetes: Yes Hx Cancer: No Hx Gastrointestinal Problems: Yes Hx Neurological Problems: Yes Hx Cerebrovascular Accident: Yes Hx Seizures: Yes Review of Systems All Other Systems: limited Physical Exam Vital Signs Date Time Temp Pulse Resp B/P (MAP) Pulse Ox O2 Delivery O2 Flow Rate FiO2 07/06/18 14:18 82 18 140/72 98 Trach Collar 5.0 General Appearance: Chronically Ill Head: atraumatic ENT: other Neck: supple, tracheotomy Respiratory: normal breath sounds, no respiratory distress, speaking full sentences Gastrointestinal: normal bowel sounds, non tender, soft Neurologic: normal inspection, alert, oriented x3 Psychiatric: mood/affect normal Skin: no rash Medical Decision Making Diagnostic Impression: Primary Impression: PEG (percutaneous endoscopic gastrostomy) adjustment/replacement/removal ER Course Patient presented for G-tube replacement. Gastrostomy tube was replaced with sterile technique to 4 cm with a 24 Italian G-tube. Post procedure x-ray showed adequate gastrostomy tube placement. Patient tolerated well without complications. The patient was discharged back to [facility]. Patient was return for persistent vomiting, other concerns. Last Vital Signs Date Time Temp Pulse Resp B/P (MAP) Pulse Ox O2 Delivery O2 Flow Rate FiO2 07/06/18 14:18 82 18 140/72 98 Trach Collar 5.0 Status: improved Disposition: [facility] Condition: Stable Ramses Gallagher MD Jul 06, 2018 14:25
[2018-07-06 14:26] VITALS: BP 140/72
[2018-07-06] MEDS ORDERED: NOVOLIN R100 UNIT/1 SUBQ (14:31)
--- NOTE | 2018-07-06 14:50 | NUR ---
ED Nurse Note: 30ml of gastrofin flushed into G-tube per exercise equipment repair technician Micah 60ml Sterile water used to flush the Gtube. venting gtube per Dr. Gallagher order after x ray - clear liquid draining noted after xray taken.
--- NOTE | 2018-07-06 16:02 | NUR ---
ED Nurse Note: Report given to [facility] that patient is going back to their facility.
[2018-07-06 16:31] VITALS: BP 120/74
--- NOTE | 2018-07-06 16:34 | NUR ---
ED Nurse Note: Patient is being discharged by the ERMTerri Gallagher. Report given to [facility] critical care transportation dispatch manager. ID band removed. g tube dressing clean, dry, intact. vss see flowsheet. packet has been handed to EMT.
== END 2018-07-06 16:40 ==
LOC: EDBD 14:22 → EMR 14:30
DX: Z43.1 Encounter for attention to gastrostomy (principal); I10 Essential (primary) hypertension; E11.9 Type 2 diabetes mellitus without complications; J44.9 Chronic obstructive pulmonary disease, unspecified; Z86.73 Personal history of transient ischemic attack (TIA), and cerebral infarction without residual deficits
CPT/HCPCS: 43762; 74018; 94002; 94664; 99283; Z7502

== ENCOUNTER 2018-09-09 14:12 | Inpatient (IN) | payer MEDICAID ==
[~2018-09-09] VITALS: Ht 157.5 cm; Wt 83.5 kg
[~2018-09-09 14:12] MED LIST changes: +NOVOLIN R100 UNIT/1 SUBQ
[2018-09-09 14:30] VITALS: BP 125/43
--- NOTE | 2018-09-09 15:00 | NUR ---
ED Nurse Note: [facility] of trach. pt without responses to stimuli. pt is trach with vent dependancy. pt with edema to rt. lower extremitiy. pt noted to have contractions to all extremities. pt with labs and iv site done by gabriel rn pt tolerates well
[2018-09-09 15:16] LABS: HEMATOCRIT 26.1 % (37.0-47.0); HEMOGLOBIN 7.8 G/DL (12.0-16.0); MEAN CORPUSCULAR VOLUME 75 FL (80-99); PLATELET COUNT 520 K/UL (150-450); RED BLOOD COUNT 3.49 M/UL (4.20-5.40); RED CELL DISTRIBUTION WIDTH 19.1 % (11.6-14.8); WHITE BLOOD COUNT 10.1 K/UL (4.8-10.8)
[2018-09-09 15:18] LABS: APPEARANCE,URINE SLIGHTLY CLOUDY; BILIRUBIN, URINE NEGATIVE (NEGATIVE); GLUCOSE, URINE (UA) NEGATIVE (NEGATIVE); KETONES,URINE 1+ (NEGATIVE); LEUKOCYTE ESTERASE ,URINE 3+ (NEGATIVE); NITRITE,URINE NEGATIVE (NEGATIVE); PH,URINE 8 (4.5-8.0); PROTEIN,URINE 3+ (NEGATIVE); UROBILINOGEN,URINE 1 MG/DL (0.0-1.0)
[2018-09-09 15:19] LABS: COLOR,URINE YELLOW
[2018-09-09 15:22] LABS: ANION GAP 5 mmol/L (5-15); BLOOD UREA NITROGEN 23 mg/dL (7-18); CARBON DIOXIDE 31 MMOL/L (21-32); CHLORIDE 94 MMOL/L (98-107); CREATININE 0.7 MG/DL (0.55-1.30); POTASSIUM 4.6 MMOL/L (3.5-5.1); SODIUM 130 MMOL/L (136-145)
[2018-09-09 15:27] LABS: ALANINE AMINOTRANSFERASE 17 U/L (12-78); ALBUMIN 1.7 G/DL (3.4-5.0); ALBUMIN/GLOBULIN RATIO 0.2 (1.0-2.7); ALKALINE PHOSPHATASE 281 U/L (46-116); ASPARTATE AMINO TRANSFERASE 18 U/L (15-37); BILIRUBIN,TOTAL 0.4 MG/DL (0.2-1.0)
[2018-09-09 15:30] VITALS: BP 123/36
--- NOTE | 2018-09-09 15:55 | NUR ---
ED Nurse Note: pt with left foot edema also. scaly rash noted to rt scapula/lat side area also. gt ube intact. pictures uploaded to chart. pt with admission swabs swabsobtained and sent. heel protectors placed back on pt.
--- NOTE | 2018-09-09 16:34 | Emergency Room Report ---
History of Present Illness General Chief Complaint: General Complaint Source: Medical Record Present Illness HPI 73-year-old female presents ED for evaluation. Brought in by EMS from [facility]. Patient was sent for terminal decannulation of trachea. Requested by family. Patient is currently DO NOT RESUSCITATE, selective. Patient is nonverbal at baseline. No signs of distress upon arrival. No other aggravating relieving factors. No other associated symptoms Allergies: Coded Allergies: PENICILLINS (Verified Allergy, Unknown, 12/19/17) Patient History Past Medical History: DM, HTN, COPD, CVA/TIA Past Surgical History: none Pertinent Family History: none Social History: Denies: smoking, alcohol use, drug use Now: No Immunizations: UTD Reviewed Nursing Documentation: PMH: Agreed; PSxH: Agreed Nursing Documentation-PMH Past Medical History: No History, Except For Hx Cardiac Problems: Yes Hx Hypertension: Yes Hx COPD: Yes Hx Diabetes: Yes Hx Cancer: No Hx Gastrointestinal Problems: Yes Hx Neurological Problems: Yes Hx Cerebrovascular Accident: Yes Hx Seizures: Yes - epilepsy Review of Systems All Other Systems: limited Physical Exam Vital Signs Date Time Temp Pulse Resp B/P (MAP) Pulse Ox O2 Delivery O2 Flow Rate FiO2 09/09/18 14:14 98.2 80 32 120/76 98 Mechanical Ventilator 5.0 09/09/18 14:31 40 Sp02 EP Interpretation: reviewed, normal General Appearance: no apparent distress, other - nonverbal Head: normocephalic Eyes: bilateral eye normal inspection, bilateral eye PERRL Neck: tracheotomy Respiratory: chest non-tender, lungs clear, normal breath sounds, speaking full sentences Cardiovascular #1: regular rate, rhythm, no edema Gastrointestinal: normal bowel sounds, non tender, soft, non-distended, no guarding, no rebound Rectal: deferred Genitourinary: no CVA tenderness Musculoskeletal: normal inspection Neurologic: other - nonverba Psychiatric: other - nonverbal Skin: other - large unstaged decubitus ulcer on R heel. small ulcer on L heel Lymphatic: normal inspection Medical Decision Making Diagnostic Impression: Primary Impression: Need for comfort care Additional Impressions: Anemia Qualified Codes: D64.9 - Anemia, unspecified Decubitus ulcer, heel, right, unstageable Decubitus ulcer of left ankle, stage 4 Acute on chronic respiratory failure Qualified Codes: J96.20 - Acute and chronic respiratory failure, unspecified whether with hypoxia or hypercapnia UTI (urinary tract infection) Qualified Codes: N39.0 - Urinary tract infection, site not specified ER Course Hospital Course 73-year-old female presents to ED. Request for tracheal decannulation Differential diagnoses include: respiratory failure. Comfort Care. Multisystem organ failure Clinical course Patient placed on stretcher. On traffic monitor specialist with stable vitals are ED course. After initial history and physical, I ordered labs, IV fluids, EKG Labs - Na 130, Hb 7.8, UA + bacteria EKG - NSR, no acute ischemic changes interpreted by me There is a fairly large decubitus ulcer on the right heel as well as on the left heel. dressings changed Discussed case with Dr. Masterson; family is requesting that trach be removed and patient will be placed on comfort care Abx given. Case discussed with Dr Rich (covering for Dr Andrews) and they agreed to admit patient to their service for further care and support I feel this is a highly complex case requiring extensive working including EKG/ Rhythm strip, Xray/CT/US, Blood/urine lab work, repeat exams while in ED, and administration of strong opiates/narcotics for pain control, admission to hospital or close patient follow up. Diagnosis - need for comfort care, anemia, R heel decubitus ulcer left heel decubitus ulcer, acute on chronic respiratory failure, UTI Patient admitted to SDU in serious condition Labs Test 09/09/18 14:50 White Blood Count 10.1 K/UL (4.8-10.8) Red Blood Count 3.49 M/UL (4.20-5.40) Hemoglobin 7.8 G/DL (12.0-16.0) Hematocrit 26.1 % (37.0-47.0) Mean Corpuscular Volume 75 FL (80-99) Mean Corpuscular Hemoglobin 22.2 PG (27.0-31.0) Mean Corpuscular Hemoglobin Concent 29.7 G/DL (32.0-36.0) Red Cell Distribution Width 19.1 % (11.6-14.8) Platelet Count 520 K/UL (150-450) Mean Platelet Volume 5.5 FL (6.5-10.1) Neutrophils (%) (Auto) % (45.0-75.0) Lymphocytes (%) (Auto) % (20.0-45.0) Monocytes (%) (Auto) % (1.0-10.0) Eosinophils (%) (Auto) % (0.0-3.0) Basophils (%) (Auto) % (0.0-2.0) Differential Total Cells Counted 100 Neutrophils % (Manual) 64 % (45-75) Lymphocytes % (Manual) 15 % (20-45) Monocytes % (Manual) 11 % (1-10) Eosinophils % (Manual) 3 % (0-3) Basophils % (Manual) 1 % (0-2) Band Neutrophils 6 % (0-8) Platelet Estimate Increased Platelet Morphology Normal Hypochromasia 2+ Anisocytosis 2+ Urine Color Yellow Urine Appearance Slightly cloudy Urine pH 8 (4.5-8.0) Urine Specific [place] 1.010 (1.005-1.035) Urine Protein 3+ (NEGATIVE) Urine Glucose (UA) Negative (NEGATIVE) Urine Ketones 1+ (NEGATIVE) Urine Blood 4+ (NEGATIVE) Urine Nitrite Negative (NEGATIVE) Urine Bilirubin Negative (NEGATIVE) Urine Urobilinogen 1 MG/DL (0.0-1.0) Urine Leukocyte Esterase 3+ (NEGATIVE) Urine RBC 10-15 /HPF (0 - 2) Urine WBC 5-10 /HPF (0 - 2) Urine Squamous Epithelial Cells Few /LPF (NONE/OCC) Urine Other Crystals Few /LPF (NONE) Urine Bacteria Many /HPF (NONE) Sodium Level 130 MMOL/L (136-145) Potassium Level 4.6 MMOL/L (3.5-5.1) Chloride Level 94 MMOL/L (98-107) Carbon Dioxide Level 31 MMOL/L (21-32) Anion Gap 5 mmol/L (5-15) Blood Urea Nitrogen 23 mg/dL (7-18) Creatinine 0.7 MG/DL (0.55-1.30) Estimat Glomerular Filtration Rate mL/min (>60) Glucose Level 245 MG/DL (74-106) Calcium Level 9.0 MG/DL (8.5-10.1) Total Bilirubin 0.4 MG/DL (0.2-1.0) Aspartate Amino Transf (AST/SGOT) 18 U/L (15-37) Alanine Aminotransferase (ALT/SGPT) 17 U/L (12-78) Alkaline Phosphatase 281 U/L (46-116) Total Protein 8.9 G/DL (6.4-8.2) Albumin 1.7 G/DL (3.4-5.0) Globulin 7.2 g/dL Albumin/Globulin Ratio 0.2 (1.0-2.7) Lipase 120 U/L (73-393) EKG Diagnostic Results Rate: normal Rhythm: NSR ST Segments: no acute changes ASA given to the pt in ED: No Rhythm Strip Diag. Results EP Interpretation: yes Rhythm: NSR, no PVC's, no ectopy Last Vital Signs Date Time Temp Pulse Resp B/P (MAP) Pulse Ox O2 Delivery O2 Flow Rate FiO2 09/09/18 15:58 95 20 Mechanical Ventilator 40 09/09/18 14:31 45.0 09/09/18 14:14 98.2 120/76 98 Status: improved Disposition: ADMITTED INPATIENT Condition: Serious Referrals: Arabella Andrews MD (PCP) Candelario Martino MD Sep 09, 2018 16:34
[2018-09-09] MEDS ORDERED: Nitroglycerin Subl 0.4mg tab SL PRN (17:15)
[2018-09-09] MEDS ORDERED: Mylanta II UD 30ml ORAL PRN (17:15)
[2018-09-09] MEDS ORDERED: Albuterol/Ipratropium 3ml neb HHN PRN (17:15)
[2018-09-09] MEDS ORDERED: Promethazine/Codeine 5ml UD ORAL PRN (17:15)
[2018-09-09 17:24] VITALS: BP 106/51
--- NOTE | 2018-09-09 17:26 | NUR ---
ED Nurse Note:REPORT GIVEN TO PATRICIA RN AWAITING RESP TO TRANSPORT. PT TOLERATING ABX WITHOUT ADR. SWABS ORDERED AND SENT. ECF PAPERWORK AND BELONGINGS LIST SENT WITH PT.
--- NOTE | 2018-09-09 17:40 | NUR ---
NURSE NOTES: Admitted patient from ED. Vent dependent. No respiratory distress. Placed comfortably in bed by 3 staff assist. Connected to environmental monitoring technician, Sinus rhythm noted. Contact isolation observed. Will admit to SDU standard level of care.
--- NOTE | 2018-09-09 18:00 | NUR ---
NURSE NOTES: Multiple wounds noted, assessed with charged nurse. Wound photo taken per protocol. Wound dressing applied.
--- NOTE | 2018-09-09 19:24 | NUR ---
HAND-OFF: Report given to Leon Becker RN.
--- NOTE | 2018-09-09 19:25 | NUR ---
NURSE NOTES: Received report from Fartun Adair RN. Patient is awake in bed, obtunded. Sinus rhythm on radiation monitor. No s/s of acute distress noted. Saturating well on trach-vent settings: Shiley 8, AC 14, vT 450, PEEP 5, FiO2 40%. Purewick catheter in place and suctioning well. Right wrist 22g IV saline lock, intact and patent. Bed locked in lowest position with padded side rails up x3. Call light left within reach. Will continue to monitor.
[2018-09-09 20:00] VITALS: BP 123/56
[2018-09-09] MEDS: Heparin 5000 units/ml inj SUBQ SCH (21:00)
[2018-09-09] MEDS: levETIRAcetam 500mg/5ml Liquid GT SCH (21:24)
[2018-09-10] VITALS: BP 115/45
[2018-09-10 04:00] VITALS: BP 108/55
[2018-09-10 04:41] LABS: MEAN CORPUSCULAR VOLUME 74 FL (80-99); PLATELET COUNT 432 K/UL (150-450); RED BLOOD COUNT 2.84 M/UL (4.20-5.40); RED CELL DISTRIBUTION WIDTH 18.4 % (11.6-14.8); WHITE BLOOD COUNT 7.8 K/UL (4.8-10.8)
[2018-09-10 04:48] LABS: HEMOGLOBIN 6.4 G/DL (12.0-16.0)
--- NOTE | 2018-09-10 04:57 | NUR ---
NURSE NOTES: Notified by Michael from lab, patient's hgb 6.4. Will call Dr. Hilario MD later this AM d/t patient's admission for decannulation and DNR/DNI.
[2018-09-10] MEDS: levETIRAcetam 500mg/5ml Liquid GT SCH ×3 (05:34→21:57)
--- NOTE | 2018-09-10 06:28 | NUR ---
NURSE NOTES: Dr. Hilario MD made aware of patient's hgb 6.4 this AM. MD also aware patient is DNR/DNI and here for terminal decannulation of trach per family. No new orders at this time.
--- NOTE | 2018-09-10 07:15 | NUR ---
HAND-OFF: Report given to Christiano Fernandes RN.
--- NOTE | 2018-09-10 07:20 | NUR ---
NURSE NOTES: Report received from Maribel Brady RN.Pt asleep in bed noted no resp distress ,with trach tube to vent ,on current settings,tolerating well,no signs of pain or discomfort,AFIB on the monitor,GT clamped,kept NPO,pt with pure wick draining yellow urine,IV site to RW intact,skin warm and dry,SR up x2 HOB elevated,bed lock in lowest position,will continue with plans of care.
[2018-09-10 08:00] VITALS: BP 104/59
--- NOTE | 2018-09-10 08:15 | NUR ---
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 COMFORT CARE VS: BP 123/36, P 95, T 98.3, RR 32, SpO2 98 on VENT AC 14, TV 450, PEEP 5.0, FiO2 40 RBC 3.49, Hgb 7.8, Hct 26.1, Na 130, BUN 23, URINE: Protein 3+, Blood 4+, Bacteria MANY IS:NS x1L IV LEVOFLOXACIN 150ml IVPB ADMITTED TO SDU DCP: RETURN TO [facility]
--- NOTE | 2018-09-10 08:28 | Consultation ---
History of Present Illness General Date patient seen: Sep 10, 2018 Chief Complaint: General Complaint Present Illness HPI 73-year-old female withhx of DM, HTN, COPD, CVA/TIA, chronic trach, vent, contractures, half-way resident presented ED from half-way for terminal decannulation of trachea. Requested by family. Patient is currently DO NOT RESUSCITATE, selective. Patient is nonverbal at baseline. No signs of distress upon arrival. No other aggravating relieving factors. No other associated symptoms Allergies: Coded Allergies: PENICILLINS (Verified Allergy, Unknown, 12/19/17) Medication History Scheduled Aspirin* (Aspirin*), 325 MG GT DAILY, (Reported) Atorvastatin Calcium* (Atorvastatin Calcium*), 10 MG GT BEDTIME, (Reported) Cholecalciferol (Vitamin D3)* (Vitamin D*), 5,000 UNITS GT DAILY, (Reported) Dextran 70/Hypromellose (Artificial Tears Eye Drops*), 1 DROP BOTH EYES BID, ( Reported) Heparin Sod (Porcine) (Heparin Sodium*), 5,000 UNITS SUBQ DAILY, (Reported) Insulin Regular, Human* (Novolin R*), 0 SUBQ .SLIDING SCALE, (Reported) Levetiracetam (Keppra), 5 ML GT TID, (Reported) Lisinopril (Lisinopril*), 20 MG GT DAILY, (Reported) Magnesium Hydroxide* (Milk Of Magnesia*), 30 ML ORAL DAILY, (Reported) Pantoprazole* (Protonix*), 40 MG GT DAILY, (Reported) Potassium Chloride (Potassium Chloride), 30 MEQ GT BID, (Reported) Scheduled PRN Acetaminophen* (Acetaminophen 325MG Tablet*), 650 MG GT Q4H PRN for For Pain, ( Reported) Tramadol Hcl* (Ultram*), 50 MG GT BIDAC PRN for For Pain, (Reported) Miscellaneous Medications Lactose-Reduced Food/Fiber (Jevity 1.2 Cuate Liquid), 1,500 ML PO, (Reported) Patient History Healthcare decision maker Luly Mora Resuscitation status Do Not Resuscitate Advanced Directive on File No Past Medical/Surgical History Past Medical/Surgical History: (1) Chronic respiratory failure (2) Severe flexion contractures of all joints (3) Feeding by G-tube (4) Anemia (5) Diabetes mellitus (6) History of CVA (cerebrovascular accident) Review of Systems All Other Systems: negative except mentioned in HPI Physical Exam General Appearance: WD/WN Lines, tubes and drains: peripheral HEENT: normocephalic, atraumatic Neck: non-tender, normal alignment Respiratory/Chest: chest wall non-tender, lungs clear Breasts: no masses Cardiovascular/Chest: normal peripheral pulses Abdomen: normal bowel sounds Genitourinary/Rectal: normal genital exam Extremities: normal range of motion Last 24 Hour Vital Signs Date Time Temp Pulse Resp B/P (MAP) Pulse Ox O2 Delivery O2 Flow Rate FiO2 09/10/18 07:16 85 22 40 09/10/18 04:55 84 22 40 09/10/18 04:00 Mechanical Ventilator 09/10/18 04:00 98.4 85 16 108/55 (72) 100 09/10/18 04:00 40 09/10/18 03:40 85 09/10/18 02:59 85 14 40 09/10/18 02:00 99.3 09/10/18 01:11 85 15 40 09/10/18 00:49 100.2 09/10/18 00:00 40 09/10/18 00:00 Mechanical Ventilator 09/10/18 00:00 100.6 93 16 115/45 (68) 100 09/09/18 23:27 90 09/09/18 22:55 91 26 40 09/09/18 20:58 90 24 40 09/09/18 20:00 Mechanical Ventilator 09/09/18 20:00 98.4 105 17 123/56 (78) 100 09/09/18 19:22 86 09/09/18 19:05 86 23 Mechanical Ventilator 40 09/09/18 19:00 84 24 40 09/09/18 18:00 Mechanical Ventilator 09/09/18 17:24 85 22 106/51 100 Mechanical Ventilator 40 09/09/18 17:24 85 22 106/51 100 Mechanical Ventilator 40 09/09/18 17:00 90 26 40 09/09/18 16:20 40 09/09/18 15:58 95 20 Mechanical Ventilator 40 09/09/18 15:30 95 20 123/36 100 Mechanical Ventilator 40 09/09/18 14:34 86 25 40 09/09/18 14:31 86 25 Mechanical Ventilator 45.0 40 09/09/18 14:30 87 20 125/43 100 Mechanical Ventilator 40 09/09/18 14:14 98.2 80 32 120/76 98 Mechanical Ventilator 5.0 Intake and Output 09/09/18 09/10/18 19:00 07:00 Intake Total 2000 ml 180 ml Output Total 350 ml Balance 2000 ml -170 ml Intake Oral 0 ml Free Water 180 ml IV Total 2000 ml Tube Feeding 0 ml Output Urine Total 350 ml # Voids 1 # Bowel Movements 2 2 Laboratory Tests Test 09/09/18 14:50 09/10/18 04:00 White Blood Count 10.1 K/UL (4.8-10.8) 7.8 K/UL (4.8-10.8) Red Blood Count 3.49 M/UL (4.20-5.40) L 2.84 M/UL (4.20-5.40) L Hemoglobin 7.8 G/DL (12.0-16.0) L 6.4 G/DL (12.0-16.0) *L Hematocrit 26.1 % (37.0-47.0) L 21.0 % (37.0-47.0) L Mean Corpuscular Volume 75 FL (80-99) L 74 FL (80-99) L Mean Corpuscular Hemoglobin 22.2 PG (27.0-31.0) L 22.7 PG (27.0-31.0) L Mean Corpuscular Hemoglobin Concent 29.7 G/DL (32.0-36.0) L 30.7 G/DL (32.0-36.0) L Red Cell Distribution Width 19.1 % (11.6-14.8) H 18.4 % (11.6-14.8) H Platelet Count 520 K/UL (150-450) H 432 K/UL (150-450) Mean Platelet Volume 5.5 FL (6.5-10.1) L 5.5 FL (6.5-10.1) L Neutrophils (%) (Auto) % (45.0-75.0) % (45.0-75.0) Lymphocytes (%) (Auto) % (20.0-45.0) % (20.0-45.0) Monocytes (%) (Auto) % (1.0-10.0) % (1.0-10.0) Eosinophils (%) (Auto) % (0.0-3.0) % (0.0-3.0) Basophils (%) (Auto) % (0.0-2.0) % (0.0-2.0) Differential Total Cells Counted 100 100 Neutrophils % (Manual) 64 % (45-75) 67 % (45-75) Lymphocytes % (Manual) 15 % (20-45) L 22 % (20-45) Monocytes % (Manual) 11 % (1-10) H 8 % (1-10) Eosinophils % (Manual) 3 % (0-3) 3 % (0-3) Basophils % (Manual) 1 % (0-2) 0 % (0-2) Band Neutrophils 6 % (0-8) 0 % (0-8) Platelet Estimate Increased H Adequate Platelet Morphology Normal Normal Hypochromasia 2+ 4+ Anisocytosis 2+ 2+ Urine Color Yellow Urine Appearance Slightly cloudy Urine pH 8 (4.5-8.0) Urine Specific [place] 1.010 (1.005-1.035) Urine Protein 3+ (NEGATIVE) H Urine Glucose (UA) Negative (NEGATIVE) Urine Ketones 1+ (NEGATIVE) H Urine Blood 4+ (NEGATIVE) H Urine Nitrite Negative (NEGATIVE) Urine Bilirubin Negative (NEGATIVE) Urine Urobilinogen 1 MG/DL (0.0-1.0) H Urine Leukocyte Esterase 3+ (NEGATIVE) H Urine RBC 10-15 /HPF (0 - 2) H Urine WBC 5-10 /HPF (0 - 2) H Urine Squamous Epithelial Cells Few /LPF (NONE/OCC) Urine Other Crystals Few /LPF (NONE) H Urine Bacteria Many /HPF (NONE) H Sodium Level 130 MMOL/L (136-145) L Potassium Level 4.6 MMOL/L (3.5-5.1) Chloride Level 94 MMOL/L (98-107) L Carbon Dioxide Level 31 MMOL/L (21-32) Anion Gap 5 mmol/L (5-15) Blood Urea Nitrogen 23 mg/dL (7-18) H Creatinine 0.7 MG/DL (0.55-1.30) Estimat Glomerular Filtration Rate mL/min (>60) Glucose Level 245 MG/DL (74-106) H Calcium Level 9.0 MG/DL (8.5-10.1) Total Bilirubin 0.4 MG/DL (0.2-1.0) Aspartate Amino Transf (AST/SGOT) 18 U/L (15-37) Alanine Aminotransferase (ALT/SGPT) 17 U/L (12-78) Alkaline Phosphatase 281 U/L (46-116) H Total Protein 8.9 G/DL (6.4-8.2) H Albumin 1.7 G/DL (3.4-5.0) L Globulin 7.2 g/dL Albumin/Globulin Ratio 0.2 (1.0-2.7) L Lipase 120 U/L (73-393) Microcytosis 1+ Height (Feet): 5 Height (Inches): 2.00 Weight (Pounds): 183 Medications Current Medications Medications (Trade) Dose Ordered Sig/[place]ster Route PRN Reason Start Time Stop Time Status Last Admin Dose Admin Acetaminophen (Tylenol) 650 mg Q4H PRN ORAL fever 09/10/18 01:15 10/09/18 17:14 09/10/18 00:19 Al Hydroxide/Mg Hydroxide (Mylanta II) 30 ml Q6H PRN ORAL dyspepsia 09/09/18 17:15 10/09/18 17:14 Albuterol/ Ipratropium (Albuterol/ Ipratropium) 3 ml Q4H PRN HHN Shortness of Breath 09/09/18 17:15 09/14/18 17:14 Heparin Sodium (Porcine) (Heparin 5000 units/ml) 5,000 units EVERY 12 HOURS SUBQ 09/09/18 21:00 10/09/18 20:59 Levetiracetam (Keppra) 500 mg Q8HR GT 09/09/18 22:00 10/09/18 21:59 09/10/18 05:34 Nitroglycerin (Ntg) 0.4 mg Q5M PRN SL Prn Chest Pain 09/09/18 17:15 10/09/18 17:14 Ondansetron HCl (Zofran) 4 mg Q6H PRN IVP Nausea & Vomiting 09/09/18 17:15 10/09/18 17:14 Promethazine HCl/ Codeine (Phenergan with Codeine) 5 ml Q4H PRN ORAL For Cough 09/09/18 17:15 10/09/18 17:14 Temazepam (Restoril) 15 mg HSPRN PRN ORAL Insomnia 09/09/18 17:15 09/16/18 17:14 Assessment/Plan Problem List: (1) Chronic respiratory failure ICD Codes: J96.10 - Chronic respiratory failure, unspecified whether with hypoxia or hypercapnia SNOMED: 77461037 (2) History of CVA (cerebrovascular accident) ICD Codes: Z86.73 - Personal history of transient ischemic attack (TIA), and cerebral infarction without residual deficits SNOMED: 869528200 (3) Severe flexion contractures of all joints ICD Codes: M24.50 - Contracture, unspecified joint SNOMED: 699843776 (4) Feeding by G-tube ICD Codes: Z93.1 - Gastrostomy status SNOMED: 094496880, 726064192, 836917343 (5) Diabetes mellitus ICD Codes: E11.9 - Type 2 diabetes mellitus without complications SNOMED: 25006387 Diagnosis [place] V: comfort care family meeting hospice evaluation in case pt doesn't pass after removing trach. Ang Masterson MD Sep 10, 2018 08:28
[2018-09-10] MEDS: Heparin 5000 units/ml inj SUBQ SCH ×2 (10:16→20:47)
--- NOTE | 2018-09-10 10:30 | NUR ---
NURSE NOTES: wound care Nurse assessed and clean pt's wound,photos taken again.Aside from the wound pt noted with generalized rashes to body and arms.
[2018-09-10 12:00] VITALS: BP 128/62
--- NOTE | 2018-09-10 13:11 | NUR ---
RD ASSESSMENT & RECOMMENDATIONS SEE CARE ACTIVITY FOR COMPLETE ASSESSMENT DAILY ESTIMATED NEEDS: Needs based on Wounds, critical care, TF ERGONOMICS CONSULTANT 58kg adj 27-32 kcals/kg 6860-1288 total kcals 1.5-2 g protein/kg 87-116 g total protein 25-30 mL/kg 2600-8773 total fluid mLs NUTRITION DIAGNOSIS: 1) Swallowing difficulty r/t respiratory status as evidenced by pt is trach/ vent dep, GT dep 2) Increased kcal and protein needs r/t wound healing as evidenced by pt adm w/ BL LE open, and advanced wounds, refer to assessment. ENTERAL NUTRITION RECOMMENDATIONS: CONSULT RD NEEDED/ CURRENTLY DNR, COMFORT MEASURES ADDITIONAL RECOMMENDATIONS: 1) Pt is to be terminally decannulated/ comfort care * Consult RD for wound recs if part of POC * 2) Calibrated bed scale wts . .
--- NOTE | 2018-09-10 13:55 | NUR ---
NURSE NOTES:WOUND CARE NOTES:Pt presented on admission with Contractures bilat lower ext. Full thickness pressure injury Plantar R heel, R foot and laterally. Wound is grossly malodorous .Base of wound beefy red with approx 50% necrosis ,scattered areas of slough.Bone visible at base of wound. moderated amt brown exudate.Edges of wound macerated. Foot care noted to be grossly neglected. R lateral and R medial malleolus with soft necrosis. L lateral malleolus with soft hyde slough.L heel fluctuant .L 3rd metatarsal dusky .Necrotic area noted to web space of L 4th and 5th metatarsals. Sacrum is dry and blanchable. Plaque of dry scaly brown skin noted to R flank area. scaly red rash noted to L chest.Both hands are contracted. Good foot care provided and odr improved minimally. Tx.Plan: Cleanse R foot wounds with Dakin's Suyapa. 0.125% . Pack wound with Dakin's soaked kerlix. Apply Triad Periwound. Cover with ABD and wrap with Kerlix Daily and prn. Apply Dakins suyapa. 0.125% soaked gauze to L malleolus. Cover with ABD pads .Wrap with Kerlix. Daily and prn. Apply Triad to R flank rash Daily. Apply Triad to sacrum. Cover with Optifoam drsg. Change every 3 days and prn. APM/VERO Mattress overlay. Reposition at least every 2hours or as tolerated. PLace pillow behind knnes to off-load heels.
--- NOTE | 2018-09-10 14:19 | NUR ---
*-* INSURANCE *-* ALL CLINICALS AND REVIEWS HAVE BEEN FAXED TO: [facility] AUTH# [id number] FAX CLINICALS TO [phone]
[2018-09-10 16:00] VITALS: BP 120/53
--- NOTE | 2018-09-10 16:40 | NUR ---
Social Service Note SW spoke with patient's dgt's Sidra Mi (CM coordinator provided translation) [phone] and Luly Mora [phone]. Luly states she decided in SNF for patient to transfer to for vent support to be removed. Luly understood patient will be monitor between 24-48 hours and if not actively transitioning to end of life patient will return to SNF under hospice care. Family will be at the bedside at 10am tomorrow 09/11/18. Dr. Zelalem delgadillo.
--- NOTE | 2018-09-10 17:17 | History & Physical ---
History and Physical History & Physicial Dictated for Int Med-Dr Rich no. [id number]. Alessandro Woodson MD Sep 10, 2018 17:17
--- NOTE | 2018-09-10 18:00 | NUR ---
NURSE NOTES: Family members did not show up for plans of extubation.No change in pt's status.
--- NOTE | 2018-09-10 18:22 | Cardiology Report ---
APPROVED REPORT EKG Measurement Heart [id number] Normal sinus rhythm Low voltage QRS Right bundle branch block Abnormal ECG
--- NOTE | 2018-09-10 19:05 | NUR ---
NURSE NOTES: Received report from Christiano Fernandes RN. Patient is awake in bed, obtunded. Sinus rhythm on personnel monitor. No s/s of acute distress noted. Saturating well on trach-vent settings: Shiley 8, AC 14, vT 450, PEEP 5, FiO2 40%. Purewick catheter in place and suctioning well. Right wrist 22g IV saline lock, intact and patent. Bed locked in lowest position with padded side rails up x3. Call light left within reach. Will continue to monitor. Awaiting social service consult regarding terminal decannulation.
--- NOTE | 2018-09-10 19:20 | NUR ---
HAND-OFF: Report given to Lindsey Rojas RN. Addendum: 09/10/18 at 1948 by QUOC BECERRA RN HAND-OFF: Report given to Maribel Brady RN.
[2018-09-10 20:00] VITALS: BP 129/64
--- NOTE | 2018-09-10 21:00 | History and Physical Report ---
DATE OF ADMISSION: 09/09/2018 CHIEF COMPLAINT: The patient is a 73-year-old female, who presents with a chief complaint of terminal extubation. HISTORY OF PRESENT ILLNESS: The patient is a resident of [facility]. The patient is a chronic vent dependent. According to the note, the patient was brought in for terminal decannulation of the trachea. This apparently was requested by the family, however, the family members are not present. The patient is admitted for comfort care and terminal extubation. REVIEW OF SYSTEMS: Unable to assess secondary to the patient's mental status. PAST MEDICAL HISTORY: Significant for, 1. Bilateral lower extremity cellulitis. 2. Osteomyelitis. 3. Chronic respiratory failure, chronic vent dependence. 4. Alzheimer's dementia. 5. Dysphagia. 6. Peripheral vascular disease. 7. Seizure disorder. PAST SURGICAL HISTORY: Significant for, 1. Tracheostomy placement. 2. Gastrostomy tube placement. CURRENT MEDICATIONS: 1. Aspirin 325 mg per G-tube daily. 2. Atorvastatin 20 mg per G-tube at bedtime. 3. Regular insulin sliding scale. 4. Keppra 500 mg per G-tube 3 times daily. 5. Lisinopril 20 mg per G-tube daily. 6. Protonix 40 mg per G-tube daily. 7. Potassium chloride 30 mEq per G-tube twice daily. 8. Tramadol 50 mg per G-tube twice daily. ALLERGIES: Penicillin. PHYSICAL EXAMINATION: VITAL SIGNS: Temperature 97.7, respirations 14, pulse 81, and blood pressure 128/63. GENERAL: The patient is a well-developed and well-nourished female, who is intubated and sedated. HEENT: Eyes, pupils are equal and responsive to light and accommodation. Extraocular movements are intact. NECK: Supple without lymphadenopathy. There is a tracheostomy tube present. CHEST: Diffuse wheezes bilaterally with coarse upper air sounds. Otherwise, without wheezes or rales. CARDIOVASCULAR: Regular rhythm and rate. S1 and S2 are normal without murmurs, rubs, or gallops. ABDOMEN: Soft, nontender, and nondistended with positive bowel sounds. No evidence of hepatosplenomegaly. Currently, no rebound or guarding noted. EXTREMITIES: Negative for clubbing, cyanosis, or edema. RECTAL/GENITAL: Not performed. NEUROLOGICAL: Unable to assess. LABORATORY STUDIES: WBC 10.1, hemoglobin 7.8, hematocrit 26.1, and platelets 520,000. Sodium 130, potassium 4.6, chloride 94, CO2 31, BUN 23, creatinine 0.7, and glucose 245. ASSESSMENT: This is a 73-year-old female. 1. Vent-dependent respiratory failure. 2. Dysphagia. 3. Gastroesophageal reflux disease. 4. Peripheral vascular disease. 5. Seizure disorder. TREATMENT: Chronic respiratory failure, ventilator dependent. The patient is admitted for comfort care and terminal extubation. Alessandro Woodson M.D. DR: WILI JOB#: [id number] CC:
[2018-09-11] VITALS: BP 109/51
--- NOTE | 2018-09-11 02:45 | NUR ---
NURSE NOTES: Right wrist 22g IV was found out of IV site, catheter was intact, site remains asymptomatic. Inserted new 24g IV on right wrist, intact and patent, TKO.
[2018-09-11 04:00] VITALS: BP 145/57
[2018-09-11] MEDS: levETIRAcetam 500mg/5ml Liquid GT SCH (05:39)
--- NOTE | 2018-09-11 07:05 | NUR ---
RESPIRATORY NOTE: received pt on vent, trach with portex 8, midline and patent. trach is secured via trach tie. no redness or skin tears visible around stoma or neck area. pt is on current vent settings with alarms set and audible. no resp distress noted at this time. vent is plugged into the red outlet. will cont to monitor.
--- NOTE | 2018-09-11 07:20 | NUR ---
HAND-OFF: Report given to Christiano Fernandes RN.
[2018-09-11 08:00] VITALS: BP 131/55
--- NOTE | 2018-09-11 08:00 | NUR ---
NURSE NOTES: Report received from Maribel Brady RN.Pt in bed awake,noted no resp distress,with Trach/Vent dependent,on current settings,tolerating well,remains NPO,GT clamped,with pure wick in placed draining yellow urine, site to RW intact skin warm and dry with generalized rashes all over body,wounds noted to both feet,RT heel and LT maleolos,SR up x2 HOB elevated,bed lock in lowest position,will continue to monitor pt.
[2018-09-11] MEDS: Heparin 5000 units/ml inj SUBQ SCH (09:01)
--- NOTE | 2018-09-11 10:22 | Pulmonolgy Critical Care Note ---
Critical Care - Asmt/Plan Problems: (1) Chronic respiratory failure (2) Decubitus ulcer, heel, right, unstageable (3) Severe flexion contractures of all joints (4) Decubitus ulcer of left ankle, stage 4 (5) Feeding by G-tube (6) Diabetes mellitus (7) History of CVA (cerebrovascular accident) Respiratory: monitor respiratory rate, other - pt is transferred to hospital to taken off the ventilator. Infectious Disease: other Gastrointestinal: continue feedings/current rate Neurologic: PRN Ativan Affect: PRN ativan Notes Reviewed: costume mistress Discussed with: nurses, consultants, rn field case managerchannel marketing manager - Objective Last 24 Hour Vital Signs Date Time Temp Pulse Resp B/P (MAP) Pulse Ox O2 Delivery O2 Flow Rate FiO2 09/11/18 08:36 79 17 40 09/11/18 08:00 98.9 82 18 131/55 (80) 100 09/11/18 08:00 80 09/11/18 08:00 40 09/11/18 07:03 71 14 40 09/11/18 05:18 80 14 40 09/11/18 04:00 40 09/11/18 04:00 76 09/11/18 04:00 98.4 78 14 145/57 (86) 100 09/11/18 04:00 Mechanical Ventilator 09/11/18 03:15 79 14 40 09/11/18 01:01 81 19 40 09/11/18 00:00 Mechanical Ventilator 09/11/18 00:00 77 09/11/18 00:00 98.9 94 20 109/51 (70) 100 09/10/18 23:30 81 24 40 09/10/18 21:01 72 18 40 09/10/18 20:00 99.1 79 18 129/64 (85) 100 09/10/18 20:00 Mechanical Ventilator 09/10/18 20:00 40 09/10/18 19:30 77 19 40 09/10/18 19:15 71 09/10/18 17:00 80 16 40 09/10/18 16:00 Mechanical Ventilator 09/10/18 16:00 40 09/10/18 16:00 97.9 82 22 120/53 (75) 100 09/10/18 15:14 78 09/10/18 15:03 80 12 40 09/10/18 13:01 80 16 40 09/10/18 12:00 40 09/10/18 12:00 Mechanical Ventilator 09/10/18 12:00 97.7 81 14 128/62 (84) 98 09/10/18 11:39 85 09/10/18 10:30 81 22 40 Status: obtunded Condition: critical HEENT: atraumatic Neck: full ROM Heart: HR/BP stable Abdomen: soft, non-tender Extremities: no C/C/E Decubiti: location Micro: Microbiology Date/Time Source Procedure Growth Status 09/09/18 15:45 Nasal Nares MRSA Culture - Final NO METHICILLIN RESISTANT STAPH AUREUS... Complete 09/09/18 14:50 Urine,Clean Catch Urine Culture - Preliminary Gram Negative Bacillus 1 Resulted 09/09/18 15:45 Rectal Mucosa VRE Culture - Final Enterococcus Faecalis - Vre Resulted 09/09/18 15:45 Rectal Mucosa Pending Resulted Critical Care - Subjective ROS Limited/Unobtainable: Yes Condition: critical EKG Rhythm: Sinus Rhythm FI02: 40 Vent Support Breath Rate: 14 Vent Support Mode: AC Vent Tidal Volume: 450 Sputum Amount: Small PEEP: 5.0 PIP: 31 Tube Feeding Amount: 0 I&O: Intake and Output 09/10/18 09/11/18 19:00 07:00 Intake Total 60 ml Output Total 300 ml Balance -300 ml 60 ml Free Water 60 ml Output Urine Total 300 ml # Bowel Movements 2 Ang Masterson MD Sep 11, 2018 10:22
--- NOTE | 2018-09-11 10:40 | NUR ---
NURSE NOTES: Dr Masterson at bedside,discussed with family member ,the daughter re comfort care and tracheostomy extubation and she agreed.
[2018-09-11] MEDS ORDERED: Glycopyrrolate 0.2mg/ml 1ml Vial IV PRN ×3 (10:45→16:45)
[2018-09-11] MEDS ORDERED: Artificial Tears 1.4% Op Soln BOTH EYES PRN ×2 (10:45→12:35)
[2018-09-11] MEDS ORDERED: Haloperidol 5mg/ml Inj IM PRN ×3 (10:45→12:35)
[2018-09-11] MEDS ORDERED: PCA Morphine 1mg/ml 30 ML IV PRN (10:45)
[2018-09-11] MEDS ORDERED: Prochlorperazine 10mg tab ORAL PRN ×3 (10:45→16:45)
[2018-09-11] MEDS ORDERED: Rate Change Narcotic Drip MISC PRN ×2 (11:00→12:35)
--- NOTE | 2018-09-11 11:10 | NUR ---
NURSE NOTES: Morphine sulfate 10 mg IVP given.Respiratory Therapist notified re extubation.at 1120 pt taken off from vent and placed on RA, no resp distress noted at this time,daughter at bedside.
[2018-09-11] MEDS ORDERED: PCA Morphine 30mg/30ml IV SCH (11:15)
--- NOTE | 2018-09-11 11:25 | NUR ---
TRANSFER TO FLOOR: Patient transferred to 414, per bed . Report given to Marci Dyer RN. . Family member,daughter accompanied the transfer.
[2018-09-11 12:00] VITALS: BP 106/82
[2018-09-11] MEDS ORDERED: Morphine Sulfate 10mg/ml Inj IVP ONE (12:00)
[2018-09-11] MEDS ORDERED: Morphine Sulfate 10mg/ml Inj IVP SCH (12:00)
[2018-09-11] MEDS ORDERED: Nitroglycerin Subl 0.4mg tab SL PRN ×2 (12:00→12:15)
--- NOTE | 2018-09-11 12:00 | NUR ---
RESPIRATORY NOTE: pt has been removed from vent, as order to follow extubation. extubation occurred at 1115 with RN at bedside and family in room. pt then was transferred to 4th floor.
[2018-09-11] MEDS ORDERED: PCA Morphine 1mg/ml 30 ML IV SCH (12:34)
--- NOTE | 2018-09-11 12:45 | NUR ---
NURSE NOTES: Pt transferred to unit for comfort care after being removed from vent; "terminal decannulation". Pt is bedbound, incontinant x 2, NPO. Pt has wounds on right heal - stage 4, left heal, periwound, sacrum. RN consulted with Ny regarding wound care. Pt wound dressings dry and intact. Pt exhibited distress when attempting to reposition to take photo's of wounds after transfer; photo's not taken and comfort prioritized. Suction for pt is available at bedside. Wound care dressings at bedside for PRN change. IV patent, intact, asymptomatic. Morphine running on SIDE PULLER pump; verified with charge nurse. Will continue to plan of care.
[2018-09-11] MEDS ORDERED: Albuterol/Ipratropium 3ml neb HHN PRN ×2 (13:15)
--- NOTE | 2018-09-11 13:28 | NUR ---
FIRE ENGINE OPERATORENGINEERING ASSISTANT SI:TRACH DECANNULATION . COMFORT CARE VS: BP 131/55, P 93, T 99.0, RR 24, SpO2 84 IS:MORPHINE 30ml IV MED/SURG STATUS
[2018-09-11] MEDS ORDERED: levETIRAcetam 500mg/5ml Liquid GT SCH ×2 (14:00)
--- NOTE | 2018-09-11 14:31 | Consultation ---
History of Present Illness General Date patient seen: Sep 10, 2018 Chief Complaint: General Complaint Present Illness HPI presented with worsening overall medical condition noted to have multiple wounds on admission and worsening heel surgery called to evaluate and assist with care/management patient seen, chart reviewed, patient examined wounds addressed Allergies: Coded Allergies: PENICILLINS (Verified Allergy, Unknown, 12/19/17) Medication History Scheduled Aspirin* (Aspirin*), 325 MG GT DAILY, (Reported) Atorvastatin Calcium* (Atorvastatin Calcium*), 10 MG GT BEDTIME, (Reported) Cholecalciferol (Vitamin D3)* (Vitamin D*), 5,000 UNITS GT DAILY, (Reported) Dextran 70/Hypromellose (Artificial Tears Eye Drops*), 1 DROP BOTH EYES BID, ( Reported) Heparin Sod (Porcine) (Heparin Sodium*), 5,000 UNITS SUBQ DAILY, (Reported) Insulin Regular, Human* (Novolin R*), 0 SUBQ .SLIDING SCALE, (Reported) Levetiracetam (Keppra), 5 ML GT TID, (Reported) Lisinopril (Lisinopril*), 20 MG GT DAILY, (Reported) Magnesium Hydroxide* (Milk Of Magnesia*), 30 ML ORAL DAILY, (Reported) Pantoprazole* (Protonix*), 40 MG GT DAILY, (Reported) Potassium Chloride (Potassium Chloride), 30 MEQ GT BID, (Reported) Scheduled PRN Acetaminophen* (Acetaminophen 325MG Tablet*), 650 MG GT Q4H PRN for For Pain, ( Reported) Tramadol Hcl* (Ultram*), 50 MG GT BIDAC PRN for For Pain, (Reported) Miscellaneous Medications Lactose-Reduced Food/Fiber (Jevity 1.2 Cuate Liquid), 1,500 ML PO, (Reported) Patient History Limited by: medical condition History Provided By: Medical Record, PMD Healthcare decision maker Luly Mora Resuscitation status Do Not Resuscitate Advanced Directive on File No Past Medical/Surgical History Past Medical/Surgical History: (1) Bilateral lower leg cellulitis (2) Ulcer of right heel and midfoot with necrosis of muscle (3) Ulcer of left ankle (4) Iron deficiency (5) Leaking percutaneous endoscopic gastrostomy (PEG) tube (6) G-tube site cellulitis (7) Constipation (8) History of CVA (cerebrovascular accident) (9) Anemia (10) Diabetes mellitus (11) UTI (urinary tract infection) (12) Feeding by G-tube (13) Decubitus ulcer of left ankle, stage 4 (14) Severe flexion contractures of all joints (15) Decubitus ulcer, heel, right, unstageable (16) Chronic respiratory failure (17) Acute on chronic respiratory failure Review of Systems ROS Narrative cannot obtain given medical condition Physical Exam General Appearance: mild distress Lines, tubes and drains: peripheral HEENT: mucous membranes moist Neck: normal inspection Respiratory/Chest: no respiratory distress, no accessory muscle use Cardiovascular/Chest: normal rate Abdomen: soft, no organomegaly, no mass Extremities: other Skin Exam: other Last 24 Hour Vital Signs Date Time Temp Pulse Resp B/P (MAP) Pulse Ox O2 Delivery O2 Flow Rate FiO2 09/11/18 12:00 99.0 93 24 106/82 (90) 84 09/11/18 12:00 Mechanical Ventilator 09/11/18 11:39 99.0 09/11/18 11:39 99.0 09/11/18 10:59 77 14 40 09/11/18 08:36 79 17 40 09/11/18 08:00 98.9 82 18 131/55 (80) 100 09/11/18 08:00 Mechanical Ventilator 09/11/18 08:00 80 09/11/18 08:00 40 09/11/18 07:03 71 14 40 09/11/18 05:18 80 14 40 09/11/18 04:00 40 09/11/18 04:00 76 09/11/18 04:00 98.4 78 14 145/57 (86) 100 09/11/18 04:00 Mechanical Ventilator 09/11/18 03:15 79 14 40 09/11/18 01:01 81 19 40 09/11/18 00:00 Mechanical Ventilator 09/11/18 00:00 77 09/11/18 00:00 98.9 94 20 109/51 (70) 100 09/10/18 23:30 81 24 40 09/10/18 21:01 72 18 40 09/10/18 20:00 99.1 79 18 129/64 (85) 100 09/10/18 20:00 Mechanical Ventilator 09/10/18 20:00 40 09/10/18 19:30 77 19 40 4/16/19 19:15 71 09/10/18 17:00 80 16 40 09/10/18 16:00 Mechanical Ventilator 09/10/18 16:00 40 09/10/18 16:00 97.9 82 22 120/53 (75) 100 09/10/18 15:14 78 09/10/18 15:03 80 12 40 Intake and Output 09/10/18 09/11/18 19:00 07:00 Intake Total 60 ml Output Total 300 ml Balance -300 ml 60 ml Free Water 60 ml Output Urine Total 300 ml # Bowel Movements 2 Height (Feet): 5 Height (Inches): 2.00 Weight (Pounds): 184 Medications Current Medications Medications (Trade) Dose Ordered Sig/Chester Route PRN Reason Start Time Stop Time Status Last Admin Dose Admin Artificial Tears (Akwa-Tears) 1 drop QIDPRN PRN BOTH EYES Dry Eyes 09/11/18 12:35 10/11/18 12:34 Glycopyrrolate (Robinul) 0.1 mg Q6H PRN IV excessive secretions 09/11/18 12:35 10/11/18 12:34 Haloperidol Lactate (Haldol) 1 mg Q30M PRN IM Agitation 09/11/18 12:35 10/11/18 12:34 Miscellaneous Medication (Narcotic Drip Rate Change) 1 ea DAILY PRN MISC RATE CHANGE 09/11/18 12:35 10/11/18 12:34 Miscellaneous Medication (Narcotic Shift Volume) 1 ea Q12HR@0700,1900 MISC 09/11/18 19:00 10/11/18 18:59 Morphine Sulfate 30 ml @ 2 mls/hr Q15H IV 09/11/18 12:34 09/13/18 12:33 09/11/18 13:00 Assessment/Plan Problem List: (1) Bilateral lower leg cellulitis Assessment & Plan: Pt presented on admission with Contractures bilat lower ext. Full thickness pressure injury Plantar R heel, R foot and laterally. Wound is grossly malodorous .Base of wound beefy red with approx 50% necrosis , scattered areas of slough.Bone visible at base of wound. moderated amt brown exudate.Edges of wound macerated. Foot care noted to be grossly neglected. R lateral and R medial malleolus with soft necrosis. L lateral malleolus with soft hyde slough.L heel fluctuant .L 3rd metatarsal dusky .Necrotic area noted to web space of L 4th and 5th metatarsals. Sacrum is dry and blanchable. Plaque of dry scaly brown skin noted to R flank area. scaly red rash noted to L chest.Both hands are contracted. Good foot care provided and odr improved minimally. Tx.Plan: Cleanse R foot wounds with Dakin's [place]. 0.125% . Pack wound with Dakin's soaked kerlix. Apply Triad Periwound. Cover with ABD and wrap with Kerlix Daily and prn. Apply Dakins geneva. 0.125% soaked gauze to L malleolus. Cover with ABD pads .Wrap with Kerlix. Daily and prn. Apply Triad to R flank rash Daily. Apply Triad to sacrum. Cover with Optifoam drsg. Change every 3 days and prn. APM/VERO Mattress overlay. Reposition at least every 2hours or as tolerated. PLace pillow behind knnes to off-load heels. ICD Codes: L03.116 - Cellulitis of left lower limb; L03.115 - Cellulitis of right lower limb SNOMED: 184621354 (2) Ulcer of right heel and midfoot with necrosis of muscle ICD Codes: L97.413 - Non-pressure chronic ulcer of right heel and midfoot with necrosis of muscle SNOMED: 67783160, 389162940 (3) Ulcer of left ankle ICD Codes: L97.329 - Non-pressure chronic ulcer of left ankle with unspecified severity SNOMED: 34359573, 126570268 (4) Iron deficiency ICD Codes: E61.1 - Iron deficiency SNOMED: 43250369 (5) Leaking percutaneous endoscopic gastrostomy (PEG) tube ICD Codes: K94.23 - Gastrostomy malfunction SNOMED: 964536473 (6) G-tube site cellulitis ICD Codes: K94.22 - Gastrostomy infection; L03.319 - Cellulitis of trunk, unspecified SNOMED: 201173816, 120861933 (7) History of CVA (cerebrovascular accident) ICD Codes: Z86.73 - Personal history of transient ischemic attack (TIA), and cerebral infarction without residual deficits SNOMED: 267640134 (8) Constipation ICD Codes: K59.00 - Constipation, unspecified SNOMED: 99143049 (9) Anemia ICD Codes: D64.9 - Anemia, unspecified SNOMED: 129038295 Qualifiers: Qualified Codes: D64.9 - Anemia, unspecified (10) Diabetes mellitus ICD Codes: E11.9 - Type 2 diabetes mellitus without complications SNOMED: 34140704 (11) UTI (urinary tract infection) ICD Codes: N39.0 - Urinary tract infection, site not specified SNOMED: 87206547 Qualifiers: Qualified Codes: N39.0 - Urinary tract infection, site not specified (12) Feeding by G-tube ICD Codes: Z93.1 - Gastrostomy status SNOMED: 131766507, 751453885, 692042609 (13) Decubitus ulcer of left ankle, stage 4 ICD Codes: L89.524 - Pressure ulcer of left ankle, stage 4 SNOMED: 948719128 (14) Severe flexion contractures of all joints ICD Codes: M24.50 - Contracture, unspecified joint SNOMED: 227975426 (15) Decubitus ulcer, heel, right, unstageable ICD Codes: L89.610 - Pressure ulcer of right heel, unstageable SNOMED: 572088621 (16) Chronic respiratory failure ICD Codes: J96.10 - Chronic respiratory failure, unspecified whether with hypoxia or hypercapnia SNOMED: 07607998 (17) Acute on chronic respiratory failure ICD Codes: J96.20 - Acute and chronic respiratory failure, unspecified whether with hypoxia or hypercapnia SNOMED: 16158760 Qualifiers: Qualified Codes: J96.20 - Acute and chronic respiratory failure, unspecified whether with hypoxia or hypercapnia Treatment Plan: DAILY ESTIMATED NEEDS: Needs based on Wounds, critical care, TF ROD WELDER 58kg adj 27-32 kcals/kg 6354-7742 total kcals 1.5-2 g protein/kg 87-116 g total protein 25-30 mL/kg 4343-6213 total fluid mLs NUTRITION DIAGNOSIS: 1) Swallowing difficulty r/t respiratory status as evidenced by pt is trach/ vent dep, GT dep 2) Increased kcal and protein needs r/t wound healing as evidenced by pt adm w/ BL LE open, and advanced wounds, refer to assessment. ENTERAL NUTRITION RECOMMENDATIONS: CONSULT RD NEEDED/ CURRENTLY DNR, COMFORT MEASURES ADDITIONAL RECOMMENDATIONS: 1) Pt is to be terminally decannulated/ comfort care * Consult RD for wound recs if part of POC * 2) Calibrated bed scale wts Donovan Lujan Sep 11, 2018 14:30
--- NOTE | 2018-09-11 15:09 | NUR ---
*-* INSURANCE *-* ALL CLINICALS AND REVIEWS HAVE BEEN FAXED TO: [employer] [facility] AUTH# [id number] FAX CLINICALS TO [phone]
[2018-09-11] MEDS ORDERED: Dakin's 0.125% Soln (Quarter Strength) 16oz TOPIC SCH (15:45)
[2018-09-11] MEDS ORDERED: NS 275ml ONE (15:53)
[2018-09-11 16:00] VITALS: BP 118/45
[2018-09-11] MEDS ORDERED: Narcotic Shift Volume MISC SCH ×3 (19:00)
--- NOTE | 2018-09-11 19:00 | Internal Med Progress Note ---
Subjective Date of Service: Sep 11, 2018 Physician Name Alessandro Woodson Attending Physician Royer Rich MD Current Medications Medications (Trade) Dose Ordered Sig/Chester Route PRN Reason Start Time Stop Time Status Last Admin Dose Admin Artificial Tears (Akwa-Tears) 1 drop QIDPRN PRN BOTH EYES Dry Eyes 09/11/18 12:35 10/11/18 12:34 Glycopyrrolate (Robinul) 0.1 mg Q6H PRN IV excessive secretions 09/11/18 12:35 10/11/18 12:34 Haloperidol Lactate (Haldol) 1 mg Q30M PRN IM Agitation 09/11/18 12:35 10/11/18 12:34 Miscellaneous Medication (Narcotic Drip Rate Change) 1 ea DAILY PRN MISC RATE CHANGE 09/11/18 12:35 10/11/18 12:34 Miscellaneous Medication (Narcotic Shift Volume) 1 ea Q12HR@0700,1900 MISC 09/11/18 19:00 10/11/18 18:59 Morphine Sulfate 30 ml @ 2 mls/hr Q15H IV 09/11/18 12:34 09/13/18 12:33 09/11/18 13:00 Sodium Hypochlorite (Dakin's Quarter Strength) 1 applic DAILY TOPIC 09/11/18 15:45 10/11/18 15:44 Allergies: Coded Allergies: PENICILLINS (Verified Allergy, Unknown, 12/19/17) ROS Limited/Unobtainable: Yes Subjective 73 YO F admitted with chronic respiratory failure with vent dependence. S/P terminal extubation 09/11/18; now comfort care. Cover for Int Med-Dr Rich Objective Last Vital Signs Date Time Temp Pulse Resp B/P (MAP) Pulse Ox O2 Delivery O2 Flow Rate FiO2 09/11/18 16:00 Mechanical Ventilator 09/11/18 16:00 99.6 93 22 118/45 (69) 77 09/11/18 10:59 40 09/09/18 14:31 45.0 Microbiology Date/Time Source Procedure Growth Status 09/09/18 15:45 Nasal Nares MRSA Culture - Final NO METHICILLIN RESISTANT STAPH AUREUS... Complete 09/09/18 14:50 Urine,Clean Catch Urine Culture - Preliminary Gram Negative Bacillus 1 Resulted 09/09/18 15:45 Rectal Mucosa VRE Culture - Final Enterococcus Faecalis - Vre Resulted 09/09/18 15:45 Rectal Mucosa Pending Resulted Intake and Output 09/10/18 09/11/18 19:00 07:00 Intake Total 60 ml Output Total 300 ml Balance -300 ml 60 ml Free Water 60 ml Output Urine Total 300 ml # Bowel Movements 2 Objective PHYSICAL EXAMINATION: GENERAL: The patient is a well-developed and well-nourished female, who is intubated and sedated. HEENT: Eyes, pupils are equal and responsive to light and accommodation. Extraocular movements are intact. NECK: Supple without lymphadenopathy. There is a tracheostomy tube present. CHEST: Diffuse wheezes bilaterally with coarse upper air sounds. Otherwise, without wheezes or rales. CARDIOVASCULAR: Regular rhythm and rate. S1 and S2 are normal without murmurs, rubs, or gallops. ABDOMEN: Soft, nontender, and nondistended with positive bowel sounds. No evidence of hepatosplenomegaly. Currently, no rebound or guarding noted. EXTREMITIES: Negative for clubbing, cyanosis, or edema. RECTAL/GENITAL: Not performed. NEUROLOGICAL: Unable to assess. Assessment/Plan Assessment/Plan ASSESSMENT: This is a 73-year-old female. 1. Vent-dependent respiratory failure. 2. Dysphagia. 3. Gastroesophageal reflux disease. 4. Peripheral vascular disease. 5. Seizure disorder. TREATMENT: 1. Chronic respiratory failure. The patient is S/P terminal extubation 09/11/18. Continue comfort care per family request Alessandro Woodson MD Sep 11, 2018 19:00
--- NOTE | 2018-09-11 19:10 | NUR ---
HAND-OFF: Report given to NELL Cohen.
[2018-09-11 20:00] VITALS: BP 84/48
--- NOTE | 2018-09-11 20:00 | NUR ---
NURSE NOTES: PATIENT IN BED. S/P TERMINAL EXTUBATION, DNR/DNI, COMFORT MEASURE ONLY. ON RA, O2SAT AT 72%, ON TAIL TRIMMER WITH MORPHINE. EYES CLOSED, SLEEPING QUIETLY, NO S/SX OF DISTRESS. BED IN LOWEST POSITION, LOCKED, ALARMS ON. SIDE RAILS PADDED. WILL CONT MONITOR THROUGH OUT THE SHIFT.
[2018-09-11] MEDS ORDERED: NS 500ML ONE (21:31)
--- NOTE | 2018-09-11 21:32 | NUR ---
PRONOUNCEMENT: No Code. Called to pronounce patient. Absence of spontaneous respirations, no cardiac or breath sounds on auscultation. Pupils fixed and dilated. No carotid pulse or chest movement. Patient at 2132 09/11/2018. Royer Greenberg notified PER Jelena You Rn. Family was notified at .
--- NOTE | 2018-09-11 23:45 | NUR ---
NURSE NOTES: PT AT 2131, PRONOUNCED BY DIRECTOR OF REVENUE CYCLE MANAGEMENT CARYN AMES. FAMILY BY BEDSIDE. NOTIFIED DR TAYLOR VIA PHONE. [facility] NOTIFIED. POST MORTEM CARE GIVEN, MORTUARY PICKED UP BODY AT 2340.
[2018-09-12] MEDS ORDERED: PCA Morphine 1mg/ml 30 ML IV SCH (02:15)
[2018-09-12] MEDS ORDERED: Rate Change Narcotic Drip MISC PRN (09:00)
[2018-09-12] MEDS ORDERED: Artificial Tears 1.4% Op Soln BOTH EYES PRN (10:45)
--- NOTE | 2018-09-12 11:01 | Discharge Summary ---
Discharge Summary Discharge Summary _ DATE OF ADMISSION: 09/09/2018 DATE OF DISCHARGE: 09/11/2018 BRIEF SUMMARY: Patient is a 73-year-old female, who is a resident of [facility]. The patient is a chronic vent dependent. Patient was brought to the hospital for terminal decannulation of the trachea. This apparently was requested by the family she was then admitted for comfort care and terminal extubation. On evaluation at the ED, blood work showed hemoglobin level 7.8, hematocrit 26. Sodium level was low at 130. Chloride 94. Urinalysis showed 3+ leukocyte esterase, 10-15 RBC, 5-10 WBC. She had a fairly large decubitus ulcer on the right heel as well as on the left heel. Dressings were changed. She was then admitted for comfort care and terminal extubation. Patient was given comfort care. Social service was consulted. Patient had full thickness pressure injury on the right plantar heel and right foot and laterally. Right lateral and right medial malleolus with soft necrosis. Left lateral malleolus with soft place slough. She was given wound care. On 09/11/2018, she was terminally extubated. She eventually . FINAL DIAGNOSES: Comfort care/terminal care Vent-dependent respiratory failure. Dysphagia, feeding via G-tube Gastroesophageal reflux disease. Peripheral vascular disease. Seizure disorder. Decubitus ulcer, heel, right, unstageable, present on admission Severe flexion contractures of all joints Decubitus ulcer of left ankle, stage 4, present on admission Diabetes mellitus Old CVA (cerebrovascular accident) DISPOSITION: Patient . I have been assigned to complete a discharge summary on this account, I was not involved with the patient's management. Divine Boone NP Sep 12, 2018 11:01
--- NOTE | 2018-09-12 13:15 | NUR ---
*-* INSURANCE *-* ALL CLINICALS AND REVIEWS HAVE BEEN FAXED TO: [facility] AUTH# [id number] FAX CLINICALS TO [phone] Addendum: 09/12/18 at 1315 by NEERAJ PEREZ CM DISCHARGE SUMMARY HAS BEEN FAXED
== END 2018-09-11 21:32 | disposition expired | DRG 862 ==
LOC: EDBD 14:12 → EMR 14:50 → 2W 15:50 → EDBEDREQ 16:03 → 4E 09-11 11:20
PROC: 5A1945Z Respiratory Ventilation, 24-96 Consecutive Hours (ICD-10-PCS; principal; 2018-09-09)
PROC: 0BP1XDZ Removal of Intraluminal Device from Trachea, External Approach (ICD-10-PCS; 2018-09-11)
DX: Z51.5 Encounter for palliative care (principal); Z99.11 Dependence on respirator [ventilator] status; L89.524 Pressure ulcer of left ankle, stage 4; J96.10 Chronic respiratory failure, unspecified whether with hypoxia or hypercapnia; Z43.0 Encounter for attention to tracheostomy; L03.319 Cellulitis of trunk, unspecified; K94.22 Gastrostomy infection; R13.10 Dysphagia, unspecified; L89.610 Pressure ulcer of right heel, unstageable; Z66 Do not resuscitate; G40.909 Epilepsy, unspecified, not intractable, without status epilepticus; I73.9 Peripheral vascular disease, unspecified; M24.50 Contracture, unspecified joint; K21.9 Gastro-esophageal reflux disease without esophagitis; E11.9 Type 2 diabetes mellitus without complications; Z86.73 Personal history of transient ischemic attack (TIA), and cerebral infarction without residual deficits; G30.9 Alzheimer's disease, unspecified; F02.80 Dementia in other diseases classified elsewhere, unspecified severity, without behavioral disturbance, psychotic disturbance, mood disturbance, and anxiety; Z88.0 Allergy status to penicillin; I10 Essential (primary) hypertension; L97.413 Non-pressure chronic ulcer of right heel and midfoot with necrosis of muscle; K94.23 Gastrostomy malfunction; Y83.3 Surgical operation with formation of external stoma as the cause of abnormal reaction of the patient, or of later complication, without mention of misadventure at the time of the procedure; K59.00 Constipation, unspecified; D64.9 Anemia, unspecified
CPT/HCPCS: 36415; 80053; 81003; 83690; 85007; 85025; 87070; 87081; 87086; 87181; 87205; 93005; 94002; 94003; 94664; 96361; 96365; 99285